=== PATIENT | female | born 1930 | race Caucasian/White ===

== ENCOUNTER 2016-02-19 10:09 | Inpatient (IN) | payer OTHER, MEDICARE ==
[~2016-02-19] VITALS: Ht 160 cm; Wt 79.4 kg
[~2016-02-19 10:09] MED LIST: ACEPHEN650 MG PR; ACETADOTE200 MG/1 M NEB; ACIDOPHILUS W/P1 CAP PO; ACIDOPHILUS1 EACH PO; ADVAIR 250-501 EACH INH; ALBUTEROL2.5 MG/3 M INH; ALPRAZOLAM0.25 M1 PO; ALPRAZOLAM0.25 MG PO; APAP325 MG PO; BENEFIBER144 GM PO; BENZONATATE100 MG PO; CALCIUM + VITA1 EAC1 PO; CHOLESTYRAMINE1 POW PO; CIPRO 500MG TA500 MG PO; CLARITIN10 MG PO; CLOPIDOGREL75 MG PO; CORTEF10 M1 PO; CORTEF20 M1 PO; CORTEF5 MG PO; COUMADIN 3 MG TA3 MG PO; COUMADIN 4MG TAB4 MG PO; COUMADIN2 M1 PO; COUMADIN4 M1 PO; CYMBALTA60 M1 PO; DIFICID200 MG PO; DIOVAN160 MG PO; DULCOLAX10 MG PR; FAMOTIDINE20 M1 PO; FAMOTIDINE20 MG PO; FIRST-VANCOM25 MG/ML PO; FLAGYL 25O MG250 M1 PO; FLEET ENEMA 131 UNIT RC; FLORASTOR250 MG PO; FOLIC ACID 1 MG PO; FUROSEMIDE40 M1 PO; FUROSEMIDE40 MG PO; GOOD NEIGHBOR100 M5 PO; GUAIFENESIN AC473 M1 PO; GUAIFENESIN ER600 MG PO; HYDROCORTISONE PO; HYDROCORTISONE20 MG PO; KLOR-CON M2020 MEQ PO; LASIX20 M1 PO; MASON NATURAL325 MG PO; METAMUCIL1 PAC PO; MILK OF MAGNESI30 ML PO; MIRALAX17 GM PO; MULTIPLE VITAM1 EAC2 PO; NEURONTIN300 M1 PO; NORVASC 5MG TAB5 MG PO; OXYCODONE AND A1 TA2 PO; OXYCODONE5 MG PO; OXYCONTIN10 M1 PO; OXYCONTIN10 MG PO; PREDNISONE20 M1 PO; SPIRIVA18 MCG INH; THE MEDICINE SH1 POW PO; THIAMINE HCL100 M1 PO; TYLENOL500 MG PO; ULTRAM(MONOGRAP50 MG PO; VANCOCIN HCL P125 MG PO; VANCOCIN HCL125 MG PO; VANCOMYCIN HCL5 G1 PO; VOLTAREN GEL1% TOP; VOLTAREN100 GM TOP; XIFAXAN200 MG PO
--- NOTE | 2016-02-19 10:19 | ED UPPER/LOWER EXTREMITY COMPL ---
History of Present Illness General Chief Complaint: Shoulder Injury Stated Complaint: BIBA, RIGHT SHOULDER PAIN. Source: patient, old records, EMS Exam Limitations: no limitations Vital Signs & Intake/Output Vital Signs & Intake/Output Vital Signs Date Time Temp Pulse Resp B/P Pulse O2 O2 Flow FiO2 Ox Delivery Rate 02/18 1401 98.2 82 19 172/80 95 Room Air 02/18 1134 97.4 80 19 176/69 96 Room Air 02/18 1015 97.5 85 20 184/86 97 Room Air Allergies Coded Allergies: codeine (Severe, UNKNOWN PER PT 02/19/16) Reconcile Medications Alprazolam 0.25 MG TABLET 1 TAB PO BID PRN ANXIETY (Reported) Calcium/Vitamin D (Calcium + D) 600 MG/200 IU TAB 1 TAB PO BID SUPPLEMENT ( Reported) DEXTRIN (Fiber) 3 GRAM/3.5 GRAM POWDER 1 TBSP PO DAILY CONSTIPATION (Reported ) Diclofenac Sodium (Voltaren) 1 % GEL..GRAM. 1 GM TOP 4 TIMES/DAY HAND PAIN ( Reported) apply to affected areas Duloxetine Hydrochloride (Cymbalta) 30 MG CAPSULE.DR 60 MG PO DAILY PAIN AND DEPRESSION (Reported) Famotidine 20 MG TABLET 1 TAB PO DAILY GASTRITIS (Reported) FLUTICASONE/SALMETEROL (Advair 250-50 Diskus) 250 MCG-50 MCG/DOSE BLST.W.DEV 1 PUF PO BID COPD (Reported) Folic Acid 1 MG TABLET 1 MG PO DAILY FOLIC ACID SUPPLEMENT (Reported) Furosemide (Lasix) 20 MG TABLET 1 TAB PO DAILY heart (Reported) Gabapentin (Neurontin) 300 MG CAP 1 CAP PO BID NEURALGIA (Reported) Guaifenesin (Guaifenesin ER) 600 MG TAB.ER.12H 600 MG PO Q12 PRN COUGH Hydrocortisone (Cortef) 20 MG TABLET 1 TAB PO DAILY ADRENAL INSUFFICIENCY ( Reported) Hydrocortisone (Cortef) 10 MG TAB 1 TAB PO AT BEDTIME ADRENAL INSUFFICIENCY ( Reported) Lactobacillus Acidophilus (Acidophilus) 1 CAP CAP 1 CAP PO DAILY SUPPLEMENT ( Reported) Multivitamin (Multiple Vitamins) 1 EACH TABLET 1 TAB PO DAILY SUPPLEMENT ( Reported) Oxycodone HCl (Oxycontin) 10 MG TAB.ER.12H 10 MG PO BID PAIN (Reported) Thiamine HCl 100 MG TABLET 1 TAB PO DAILY SUPPLEMENT (Reported) Valsartan (Diovan) 160 MG TABLET 1 TAB PO DAILY BP (Reported) Vancomycin HCl (Vancocin HCl) 125 MG CAPSULE 125 MG PO DAILY C DIFFICLE ( Reported) Warfarin Sodium (Coumadin) 2 MG TABLET 2 TAB PO 1700 BLOOD THINNER Triage Nurses Notes Reviewed? yes Onset: Abrupt Duration: THIS MORNING Timing: multiple episodes today Severity: severe Pain/Injury Location: Right: Shoulder. Method of Injury: NONE - OLD ROTATOR CUFF INJURY Modifying Factors: Worsens With: movement. Associated Symptoms: stiffness HPI: This is an 85-year-old female with history of chronic right rotator cuff pain who presents by EMS from home for chief complaint of severe pain since yesterday morning. She states the pain is worse than usual. No recent trauma or injury. She has been taking her OxyContin without any relief. Pain radiates up her neck and down herself arm. Denies any chest pain or shortness of breath and out of the usual. She has a history of COPD no his old short of breath. Patient does not use any home oxygen therapy. Denies any palpitations. Past History Travel History Traveled to [place] past 21 day No Medical History Any Pertinent Medical History? see below for history Neurological: CVA Cardiovascular: CHF, hypertension, hyperlipidemia, Endocarditis Respiratory: COPD (on 2 L oxygen at home) Gastrointestinal: diverticulitis, RECURRENT c. 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 Hx Contributory? No Review of Systems Review of Systems Constitutional: Denies: chills, fever. EENTM: Reports: no symptoms. Respiratory: Denies: cough, short of breath. Cardiovascular: Denies: chest pain, palpitations. Gastrointestinal/Abdominal: Denies: abdominal pain. Genitourinary: Reports: no symptoms. Musculoskeletal: Reports: joint pain, muscle pain. Skin: Reports: no symptoms. Neurological/Psychological: Reports: anxiety, weakness (RIGHT ARM). Hematologic/Endocrine: Denies: bruising, bleeding, polyuria, polydipsia. Immunological: Denies: splenectomy. All Other Systems: Reviewed and Negative Physical Exam Physical Exam General Appearance: well developed/nourished, mild distress Head: atraumatic Eyes: Bilateral: PERRL, EOMI. Ears, Nose, Throat: normal pharynx, normal ENT inspection, hearing grossly normal Neck: normal inspection, supple Cardiovascular/Respiratory: regular rate/rhythm Peripheral Pulses: 2+ radial (R), 2+ radial (L) Gastrointestinal: SOFT NONTENDER Back: normal inspection Shoulder Left: normal range of motion, normal inspection Shoulder Right: pain, limited range of motion Elbow Left: normal range of motion, normal inspection Elbow Right: normal range of motion, normal inspection Hand Left: normal inspection, normal range of motion Hand Right: normal inspection, normal range of motion Neurologic/Tendon: normal sensation, normal motor functions, normal tendon functions, PAIN WITH RANGE OF MOTION Skin: intact, normal color, warm/dry Lymphatic: no anterior cervical cecy Progress Differential Diagnosis: fracture, sprain, ROTATOR CUFF INJURY, AMI, ACS Plan of Care: Orders Procedure Date/time Status Heart Healthy Diet 02/18 D Active Admit to inpatient 02/18 1536 Active Vital Signs 02/18 1536 Active Code Status 02/18 1536 Active URINALYSIS 02/18 1018 Active TROPONIN LEVEL 02/18 1018 Complete PARTIAL THROMBOPLASTIN TIME 02/18 1018 Complete PROTHROMBIN TIME 02/18 1018 Complete COMPREHENSIVE METABOLIC PANEL 02/18 1018 Complete CBC WITHOUT DIFFERENTIAL 02/18 1018 Complete EKG 02/18 1018 Active Laboratory Tests 02/19/16 1041: Anion Gap 9, Estimated GFR > 60, BUN/Creatinine Ratio 24.3, Glucose 83, Calcium 8.8, Total Bilirubin 0.8, AST 29, ALT 31, Alkaline Phosphatase 58, Troponin I < 0.01, Total Protein 6.4, Albumin 3.6, Globulin 2.8, Albumin/Globulin Ratio 1.3, PT 26.6 H, INR 2.56 H, APTT 40 H, CBC w Diff NO MAN DIFF REQ, RBC 4.52, MCV 85.2, MCH 27.7, RDW 15.8 H, MPV 7.3 L, Gran % 72.5, Lymphocytes % 14.1 L, Monocytes % 11.3 H, Eosinophils % 2.0, Basophils % 0.1, Absolute Granulocytes 7.7 H, Absolute Lymphocytes 1.5, Absolute Monocytes 1.2 H, Absolute Eosinophils 0.2, Absolute Basophils 0, PUBS MCHC 32.5 L TORADOL, NS ORDERED. LABS, EKG ORDERED. NO RELIEF WITH TORADOL. MORPHINE, VALIUM ORDERED. RIGHT SHOULDER XRAY ORDERED. MINIMAL RELIEF WITH PAIN MEDS. PATIENT UNABLE TO MOVE HER RIGHT ARM, WILL BE UNABLE TO BE AT HOME WHERE SHE NEEDS TO USE HER WALKER FOR MOVEMENT. 2:[address] COSME VIVEROS. ([facility]) Diagnostic Imaging: Viewed by Me: Radiology Read. Discussed w/RAD: Radiology Read. Radiology Impression: EXAM TYPE: RAD - XRY-SHOULDER COMPLETE-RIGHT EXAMINATION: XR SHOULDER, RIGHT CLINICAL INFORMATION: Severe right shoulder pain. COMPARISON: 06/06/2013 TECHNIQUE: Right shoulder, 3 views FINDINGS: Bones appear diffusely osteopenic. 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 The humeral head abuts the undersurface of the acromion. There is no evidence of acromial fracture or other acute interval change compared to 06/06/2013. IMPRESSION: 1. Gvqkwnim-ks-rfaiuq osteoarthritis of the glenohumeral joint. 2. Chronic rotator cuff tear as manifest by loss of acromiohumeral distance. 3. No acute findings at the right shoulder compared to 06/06/2013. Initial ED EKG: NSR Departure Departure Time of Disposition: 1426 Disposition: STILL A PATIENT Condition: Stable Clinical Impression Primary Impression: Right rotator cuff tendinitis Secondary Impressions: Intractable pain Referrals: VAIBHAV AGUIAR MD (PCP/Family) Referred to [facility] as new patient No Departure Forms: Customer Survey General Discharge Information Admission Note Spoke With: JENNYFER OROZCO MD Documentation of Exam: Documentation of any treatments & extenuating circumstances including Concerns Regarding Discharge (functional status, medication knowledge or non-compliance, living conditions, etc.) that warrant an admission rather than observation: [ PAIN CONTROL, SEVERE INTRACTABLE PAIN AFTER PAIN MEDS, UNABLE TO MOVE RIGHT ARM, UNABLE TO WALK. USES ROLLING WALKER AT HOME, LIVES INDEPENDENTLY. WILL NEED PT /OT, PAIN MANAGEMENT, ORTHO IN PAST HAS ADVISED NO TREATMENT PLAN, CONSIDER SHORT TERM REHAB]
[2016-02-19 10:52] LABS: ABSOLUTE BASOPHIL COUNT 0 /CUMM (0.0-0.2); ABSOLUTE EOSINOPHIL COUNT 0.2 /CUMM (0.0-0.7); ABSOLUTE GRANULOCYTE CT 7.7 /CUMM (1.4-6.5); ABSOLUTE LYMPH COUNT 1.5 /CUMM (1.2-3.4); ABSOLUTE MONOCYTE COUNT 1.2 /CUMM (0.10-0.60); BASOPHIL % 0.1 % (0.0-2.0); GRANULOCYTE % 72.5 % (42.2-75.2); HEMATOCRIT 38.5 % (37-47); MEAN CORPUSCULAR HGB 27.7 PG (27.0-31.0); MEAN CORPUSCULAR HGB CONC 32.5 G/DL (33.0-37.0); MEAN CORPUSCULAR VOLUME 85.2 FL (81.0-99.0); MEAN PLATELET VOLUME 7.3 FL (7.4-10.4); PLATELET COUNT 288 /CUMM (130-400); RBC DISTRIBUTION WIDTH 15.8 % (11.5-14.5); RED BLOOD CELL CT 4.52 /CUMM (4.20-5.40); WHITE BLOOD CELL COUNT 10.6 /CUMM (4.8-10.8)
[2016-02-19 11:16] LABS: PT 26.6 SEC (9.4-12.5); PTT 40 SEC (25-37)
--- NOTE | 2016-02-19 14:12 | RADIOLOGY REPORT ---
EXAMINATION: XR SHOULDER, RIGHT CLINICAL INFORMATION: Severe right shoulder pain. COMPARISON: 06/06/2013 TECHNIQUE: Right shoulder, 3 views FINDINGS: Bones appear diffusely osteopenic. 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 The humeral head abuts the undersurface of the acromion. There is no evidence of acromial fracture or other acute interval change compared to 06/06/2013. IMPRESSION: 1. Rgyxqzzj-so-sojzqu osteoarthritis of the glenohumeral joint. 2. Chronic rotator cuff tear as manifest by loss of acromiohumeral distance. 3. No acute findings at the right shoulder compared to 06/06/2013.
--- NOTE | 2016-02-19 16:12 | History & Physical ---
See Addendum General Information and HPI MD Statement: I have seen and personally examined ELIEZER GARCIA and documented this H&P. The patient is a 85 year old F who presented with a patient stated chief complaint of right-sided shoulder pain for one day. []. Source of Information: patient, family Exam Limitations: no limitations History of Present Illness: Patient is 85-year-old woman from assisted living with past medical history significant for non-oxygen dependent COPD, hypertension, congestive heart failure, chronic back pain, history of PE in the past on anticoagulation, history of chronic rotator cuff tear, history of C. difficile and fecal implantation on the ED vancomycin came to the emergency room with chief complaint of right sided severe shoulder pain and in ABLE move right shoulder since yesterday. Patient admit that she has right sided shoulder pain chronically but recently it was worsening even on pain medications and since yesterday when she woke up she had severe sharp right-sided shoulder pain with restricted right-sided shoulder movement. She denies fever, chills, chest pain, abdominal pain, any urinary or bowel complaints. She had chronic bilateral lower extremity edema. Allergies/Medications Allergies: Coded Allergies: codeine (Severe, UNKNOWN PER PT 02/19/16) Home Med list Alprazolam 0.25 MG TABLET 1 TAB PO BID PRN ANXIETY (Reported) Calcium/Vitamin D (Calcium + D) 600 MG/200 IU TAB 1 TAB PO BID SUPPLEMENT ( Reported) DEXTRIN (Fiber) 3 GRAM/3.5 GRAM POWDER 1 TBSP PO DAILY CONSTIPATION (Reported ) Diclofenac Sodium (Voltaren) 1 % GEL..GRAM. 1 GM TOP 4 TIMES/DAY HAND PAIN ( Reported) apply to affected areas Duloxetine Hydrochloride (Cymbalta) 30 MG CAPSULE.DR 60 MG PO DAILY PAIN AND DEPRESSION (Reported) Famotidine 20 MG TABLET 1 TAB PO DAILY GASTRITIS (Reported) FLUTICASONE/SALMETEROL (Advair 250-50 Diskus) 250 MCG-50 MCG/DOSE BLST.W.DEV 1 PUF PO BID COPD (Reported) Folic Acid 1 MG TABLET 1 MG PO DAILY FOLIC ACID SUPPLEMENT (Reported) Furosemide (Lasix) 20 MG TABLET 1 TAB PO DAILY heart (Reported) Gabapentin (Neurontin) 300 MG CAP 1 CAP PO BID NEURALGIA (Reported) Guaifenesin (Guaifenesin ER) 600 MG TAB.ER.12H 600 MG PO Q12 PRN COUGH Hydrocortisone (Cortef) 20 MG TABLET 1 TAB PO DAILY ADRENAL INSUFFICIENCY ( Reported) Hydrocortisone (Cortef) 10 MG TAB 1 TAB PO AT BEDTIME ADRENAL INSUFFICIENCY ( Reported) Lactobacillus Acidophilus (Acidophilus) 1 CAP CAP 1 CAP PO DAILY SUPPLEMENT ( Reported) Loratadine (Claritin) 10 MG TAB 1 TAB PO DAILY PRN ALLERGIES (Reported) Multivitamin (Multiple Vitamins) 1 EACH TABLET 1 TAB PO DAILY SUPPLEMENT ( Reported) Oxycodone HCl (Oxycontin) 10 MG TAB.ER.12H 10 MG PO BID PAIN (Reported) Thiamine HCl 100 MG TABLET 1 TAB PO DAILY SUPPLEMENT (Reported) Valsartan (Diovan) 160 MG TABLET 1 TAB PO DAILY BP (Reported) Vancomycin HCl (Vancocin HCl) 125 MG CAPSULE 125 MG PO DAILY C DIFFICLE ( Reported) Warfarin Sodium (Coumadin) 2 MG TABLET 2 TAB PO 1700 BLOOD THINNER Compliance With Home Meds: GOOD Past History Travel History Traveled to [place] past 21 day No Medical History Neurological: CVA Cardiovascular: CHF, hypertension, hyperlipidemia, Endocarditis Respiratory: COPD (on 2 L oxygen at home) Gastrointestinal: diverticulitis, RECURRENT c. 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 Psychosocial History Services at Home: Nursing Functional Ability ADLs Independent: dressing, eating, toileting, bathing. Ambulation: walker Review of Systems Review of Systems Constitutional: Reports: malaise. Denies: chills, diaphoresis, fever. Cardiovascular: Reports: edema. Denies: chest pain. Respiratory: Denies: cough, hemoptysis. GI: Denies: bloating, constipation, diarrhea. Musculoskeletal: Reports: joint pain. Exam & Diagnostic Data Last 24 Hrs of Vital Signs/I&O Vital Signs Date Time Temp Pulse Resp B/P Pulse O2 O2 Flow FiO2 Ox Delivery Rate 02/18 1800 90 18 156/82 02/18 1401 98.2 82 19 172/80 95 Room Air 02/18 1134 97.4 80 19 176/69 96 Room Air 02/18 1015 97.5 85 20 184/86 97 Room Air Intake & Output 02/18 1600 02/18 0800 02/18 0000 Intake Total Output Total Balance Patient 175 lb Weight Physical Exam General Appearance Alert, Oriented X3, Cooperative, No Acute Distress Cardiovascular Normal S1, Normal S2, systolic murmur Lungs Normal Air Movement Abdomen No Tenderness Extremities bilateral lower extremity edema Last 24 Hrs of Labs/Javier: Laboratory Tests 02/19/16 1041: Anion Gap 9, Estimated GFR > 60, BUN/Creatinine Ratio 24.3, Glucose 83, Calcium 8.8, Total Bilirubin 0.8, AST 29, ALT 31, Alkaline Phosphatase 58, Troponin I < 0.01, Total Protein 6.4, Albumin 3.6, Globulin 2.8, Albumin/Globulin Ratio 1.3, PT 26.6 H, INR 2.56 H, APTT 40 H, CBC w Diff NO MAN DIFF REQ, RBC 4.52, MCV 85.2, MCH 27.7, RDW 15.8 H, MPV 7.3 L, Gran % 72.5, Lymphocytes % 14.1 L, Monocytes % 11.3 H, Eosinophils % 2.0, Basophils % 0.1, Absolute Granulocytes 7.7 H, Absolute Lymphocytes 1.5, Absolute Monocytes 1.2 H, Absolute Eosinophils 0.2, Absolute Basophils 0, PUBS MCHC 32.5 L Assessment/Plan Assessment: 85-year-old woman with history of chronic back pain and chronic right rotator cuff tear, hypertension, hyperlipidemia, history of PE in the past on Coumadin, history of C. difficile on daily vancomycin oral came with chief complaint of worsening severe right-sided shoulder pain most likely underlying chronic issues. We will admit patient to general medical floor treated for the following problems Problem #1 severe right-sided shoulder pain with chronic rotator cuff tear we'll need physical therapy Vital signs every shift PT and OT evaluation Might be MRI of shoulder Orthopedic consultation if needed Problem #2 history of hypertension, CHF We will continue her home medications Problem #3 history of C. difficile colitis on daily vancomycin We will continue her medications Problem #4 History of abdominal insufficiency on hydrocortisone Will continue her home medications Patient is full code Pharmacological DVT prophylaxis As Ranked By This Provider Problem List: 1. HISTORY - C-DIFF COLITIS 2. Right rotator cuff tendinitis 3. Intractable pain Core Measures/Miscellaneous Acute Coronary Syndrome ACS Diagnosis: No Cerebrovascular Accident CVA/TIA Diagnosis: No Congestive Heart Failure CHF Diagnosis: No Venous Thromboembolism VTE Risk Factors: Age > 40 VTE Prophylaxis Ordered Inpt: Pharm- Warfarin No Mech VTE prophylaxis d/t: No contraindications No VTE Pharm Prophylaxis d/t: No contraindications VTE Diagnosis: No VTE Type: NONE VTE Confirmed by (Test): NONE Severe Sepsis Severe Sepsis Present: No Septic Shock Septic Shock Present: No Miscellaneous Documentation Attending Case Discussed With: JENNYFER OROZCO MD Primary Care Physician: VAIBHAV AGUIAR MD Patient sees these Specialists [employer] Level of Patient Care: General Medicine
--- NOTE | 2016-02-19 17:55 | Admission Certification ---
Admission Certification Certification Statement - As attending physician, I certify that at the time of - admission, based on clinical presentation, severity of - symptoms, need for further diagnostic testing and - therapeutic interventions, and risk of adverse outcomes - without in-hospital treatment, in my clinical assessment, - this patient requires an acute hospital stay for a minimum - of two nights or longer. I have also considered psychsocial - factors such as support system, advanced age, financial - issues, cognitive issues, and failed out-patient treatments, - past re-admission history, safety of patient, and lack of - compliance as applicable. Specific rationale supporting this admission is: 85-year-old female with intractable right shoulder pain relieved only by parenteral analgesia admitted prior to transfer to short-term rehabilitation.
[2016-02-20 07:25] VITALS: BP 146/80
[2016-02-20 08:03] LABS: ABSOLUTE BASOPHIL COUNT 0 /CUMM (0.0-0.2); ABSOLUTE EOSINOPHIL COUNT 0 /CUMM (0.0-0.7); ABSOLUTE GRANULOCYTE CT 7.4 /CUMM (1.4-6.5); ABSOLUTE LYMPH COUNT 1.2 /CUMM (1.2-3.4); ABSOLUTE MONOCYTE COUNT 1.5 /CUMM (0.10-0.60); BASOPHIL % 0.1 % (0.0-2.0); EOSINOPHIL % 0.4 % (0-5); GRANULOCYTE % 72.7 % (42.2-75.2); HEMATOCRIT 37.2 % (37-47); MEAN CORPUSCULAR HGB 27.8 PG (27.0-31.0); MEAN CORPUSCULAR HGB CONC 32.7 G/DL (33.0-37.0); MEAN PLATELET VOLUME 7.6 FL (7.4-10.4); PLATELET COUNT 247 /CUMM (130-400); RBC DISTRIBUTION WIDTH 15.7 % (11.5-14.5); RED BLOOD CELL CT 4.37 /CUMM (4.20-5.40); WHITE BLOOD CELL COUNT 10.2 /CUMM (4.8-10.8)
[2016-02-20 08:16] LABS: PT 34.4 SEC (9.4-12.5)
--- NOTE | 2016-02-20 08:34 | PN- Housestaff ---
YESENIA GOODWIN 02/20/16 0834: Subjective Follow-up For: Shoulder pain Chronic rotator cuff tear Complaints: shoulder pain Subjective: Patient was seen and examined this morning. She was lying comfortably in bed and admits that her pain is better than before. She still have restricted right shoulder movement. She remains afebrile with normal vital signs. She will work with physical therapy and most likely will go to short-term rehabilitation. Review of Systems Constitutional: Denies: chills, diaphoresis. Cardiovascular: Reports: edema. Denies: chest pain. Respiratory: Denies: cough, hemoptysis. Gastrointestinal: Denies: bloating, constipation. Musculoskeletal: Reports: joint pain. Objective Last 24 Hrs of Vital Signs/I&O Vital Signs Date Time Temp Pulse Resp B/P Pulse O2 O2 Flow FiO2 Ox Delivery Rate 02/19 0725 97.9 83 18 146/80 93 Nasal Cannula 02/19 2124 Nasal 2.0L Cannula 02/19 1936 97.1 79 18 105/59 91 Nasal 4.0L Cannula 02/18 192 97.8 93 18 142/83 95 Nasal 2.0L Cannula 02/18 1800 90 18 156/82 02/18 1401 98.2 82 19 172/80 95 Room Air 02/18 1134 97.4 80 19 176/69 96 Room Air 02/18 1015 97.5 85 20 184/86 97 Room Air Intake & Output 02/19 1600 02/19 0800 02/19 0000 Intake Total 100 100 Output Total Balance 100 100 Intake, Oral 100 100 Patient 175 lb Weight Physical Exam General Appearance: Alert, Oriented X3, Cooperative Cardiovascular: Normal S1, Normal S2, systolic murmur Lungs: Normal Air Movement Abdomen: Soft, No Tenderness Extremities: bilateral lower extremity edema Current Medications: Current Medications Sig/Gricelda Start time Last Medication Dose Route Stop Time Status Admin Acetaminophen 650 MG Q6P PRN 02/18 1615 AC PO Alprazolam 0.25 MG BID PRN 02/18 1630 AC PO 02/25 1629 Budesonide/ 2 PUF BID 02/18 2200 AC 02/18 Formoterol Fumarate INH 2155 Diazepam 0 .STK-MED ONE 02/18 1043 DC .ROUTE Diazepam 4 MG ONCE ONE 02/18 1030 DC 02/18 IV 02/18 1031 1049 Duloxetine HCl 60 MG DAILY 02/18 1618 AC 02/18 PO 1800 Famotidine 20 MG DAILY 02/18 1618 AC 02/18 PO 1800 Folic Acid 1 MG DAILY 02/18 1619 AC 02/18 PO 1800 Furosemide 20 MG DAILY 02/18 1619 AC 02/18 PO 1800 Gabapentin 300 MG BID 02/18 2200 AC 02/18 PO 2156 Hydrocortisone 10 MG QPM 02/18 2200 AC 02/18 PO 2156 Hydrocortisone 20 MG DAILY 02/18 1630 AC 02/18 PO 1800 Hydromorphone HCl 0 .STK-MED ONE 02/18 1637 DC .ROUTE Hydromorphone HCl 1 MG Q6P PRN 02/18 1615 AC 02/18 IV 1700 Hydromorphone HCl 0 .STK-MED ONE 02/18 1447 DC .ROUTE Hydromorphone HCl 1 MG ONCE ONE 02/18 1430 DC 02/18 IV 02/18 1431 1454 Ketorolac 15 MG Q6P PRN 02/18 1615 AC 02/18 Tromethamine IV 2157 Ketorolac 0 .STK-MED ONE 02/18 1036 DC Tromethamine .ROUTE Ketorolac 15 MG ONCE ONE 02/18 1030 DC 02/18 Tromethamine IV 02/18 1031 1048 Lactobacillus 1 CAP DAILY 02/18 1623 AC 02/18 Acidophilus PO 1800 Lidocaine 1 PAT Q24H 02/18 1615 AC 02/18 EXT 1700 Losartan Potassium 50 MG DAILY 02/18 1630 AC 02/18 PO 1800 Morphine Sulfate 0 .STK-MED ONE 02/18 1217 DC .ROUTE Morphine Sulfate 4 MG ONCE ONE 02/18 1215 DC 02/18 IV 02/18 1216 1222 Patient Medication 1 UNIT ONE NR 02/18 1715 RI Teaching ED 02/18 1730 Patient Medication 1 UNIT ONE NR 02/18 1715 RI Teaching ED 02/18 1730 Patient Medication 1 UNIT ONE NR 02/18 1715 RI Teaching ED 02/18 1730 Polyethylene Glycol 17 GM DAILY 02/18 1617 AC 02/18 PO 1803 Sodium Chloride 500 ML BOLUS ONE 02/18 1030 DC 02/18 IV 02/18 1129 1048 Vancomycin HCl 125 MG DAILY 02/18 1630 AC 02/18 PO 1800 Warfarin Sodium 4 MG 1700 02/18 1700 DC 02/18 PO 02/18 1701 1800 Last 24 Hrs of Lab/Javier Results Last 24 Hrs of Labs/Mics: Laboratory Tests 02/20/16 0600: Anion Gap 10, Estimated GFR > 60, BUN/Creatinine Ratio 25.7 H, PT 34.4 H, INR 3.32 H, CBC w Diff NO MAN DIFF REQ, RBC 4.37, MCV 85.0, MCH 27.8, RDW 15.7 H, MPV 7.6, Gran % 72.7, Lymphocytes % 11.8 L, Monocytes % 15.0 H, Eosinophils % 0.4, Basophils % 0.1, Absolute Granulocytes 7.4 H, Absolute Lymphocytes 1.2, Absolute Monocytes 1.5 H, Absolute Eosinophils 0, Absolute Basophils 0, PUBS MCHC 32.7 L 02/19/16 1041: Anion Gap 9, Estimated GFR > 60, BUN/Creatinine Ratio 24.3, Glucose 83, Calcium 8.8, Total Bilirubin 0.8, AST 29, ALT 31, Alkaline Phosphatase 58, Troponin I < 0.01, Total Protein 6.4, Albumin 3.6, Globulin 2.8, Albumin/Globulin Ratio 1.3, PT 26.6 H, INR 2.56 H, APTT 40 H, CBC w Diff NO MAN DIFF REQ, RBC 4.52, MCV 85.2, MCH 27.7, RDW 15.8 H, MPV 7.3 L, Gran % 72.5, Lymphocytes % 14.1 L, Monocytes % 11.3 H, Eosinophils % 2.0, Basophils % 0.1, Absolute Granulocytes 7.7 H, Absolute Lymphocytes 1.5, Absolute Monocytes 1.2 H, Absolute Eosinophils 0.2, Absolute Basophils 0, PUBS MCHC 32.5 L Assessment/Plan Assessment: 85-year-old woman with history of chronic back pain and chronic right rotator cuff tear, hypertension, hyperlipidemia, history of PE in the past on Coumadin, history of C. difficile on daily vancomycin oral came with chief complaint of worsening severe right-sided shoulder pain most likely underlying chronic issues. We will admit patient to general medical floor treated for the following problems Problem #1 severe right-sided shoulder pain with chronic rotator cuff tear we'll need physical therapy Vital signs every shift PT and OT evaluation Might be MRI of shoulder Orthopedic consultation if needed Problem #2 history of hypertension, CHF We will continue her home medications Problem #3 history of C. difficile colitis on daily vancomycin We will continue her medications Problem #4 History of abdominal insufficiency on hydrocortisone Will continue her home medications Patient is full code Pharmacological DVT prophylaxis Problem List: 1. Garfield's disease 2. Right rotator cuff tendinitis 3. Intractable pain Pain Ratin Pain Location: Right shoulder Pain Goal: Pain 4 or less Pain Plan: Dilaudid Tomorrow's Labs & Rationales: None JENNYFER OROZCO MD 02/20/16 1805: Attending MD Review Statement Attending Statement Attending MD Statement: examined this patient, agreed w/resident/PA/[facility] [employer], reviewed EMR data (avail), amended to note Attending Assessment/Plan: Ms. Barlow notes some improvement in her shoulder pain with present analgesic regimen. She does note normalized "achiness" but otherwise has no complaints. We should continue her parenteral analgesia and her maintenance medications pending placement in short-term rehabilitation.
[2016-02-20 14:46] VITALS: BP 150/90
[2016-02-20 22:45] VITALS: BP 128/60
[2016-02-21 06:37] VITALS: BP 120/64
--- NOTE | 2016-02-21 08:20 | PN- Housestaff ---
Subjective Follow-up For: right shoulder pain Subjective: pt seen this morning,was lying comfortably in bed. right extremity pain improving, right shoulder pain still persists although improved. warfarin was held yesteday due to supratherapeutic INR of 3.32, INR from today still pending. She is on 2L o2 and wants to be weaned off O2. Will follow up Pt/OT and wean off o2. she also reports not being able to urinate in [address] Quiroga was at bedside and recommended her to drink more fluids. Will straight cath her if necessary, although she would prefer not to. had normal bm this am. Review of Systems Constitutional: Denies: chills, fever. EENTM: Denies: visual changes. Cardiovascular: Denies: chest pain, palpitations. Respiratory: Denies: cough, short of breath. Gastrointestinal: Denies: abdominal pain, bloating, constipation, diarrhea. Objective Last 24 Hrs of Vital Signs/I&O Vital Signs Date Time Temp Pulse Resp B/P Pulse O2 O2 Flow FiO2 Ox Delivery Rate 02/20 1048 83 120/64 02/20 0637 98.6 83 20 120/64 98 Nasal Cannula 02/20 0000 98 Nasal 2.0L Cannula 02/19 2245 97.6 90 20 128/60 98 Nasal Cannula 02/19 1900 Nasal 2.0L Cannula 02/19 1446 98.9 92 22 150/90 93 Intake & Output 02/20 1600 02/20 0800 02/20 0000 Intake Total 150 480 Output Total 300 450 Balance 150 -300 30 Intake, Oral 150 480 Number 1 Bowel Movements Output, Urine 300 450 Physical Exam General Appearance: Alert, Oriented X3, Cooperative, No Acute Distress Skin: No Significant Lesion HEENT: Atraumatic, PERRLA Cardiovascular: Regular Rate, Normal S1, Normal S2, No Murmurs, Gallops, Rubs Lungs: Clear to Auscultation, Normal Air Movement Abdomen: Normal Bowel Sounds, Soft, No Tenderness Neurological: Normal Speech Extremities: limited ROM of right shoulder Current Medications: Current Medications Sig/Gricelda Start time Last Medication Dose Route Stop Time Status Admin Acetaminophen 650 MG Q6P PRN 02/18 1615 AC PO Alprazolam 0.25 MG BID PRN 02/18 1630 AC PO 02/25 1629 Budesonide/ 2 PUF BID 02/18 2200 AC 02/20 Formoterol Fumarate INH 1053 Duloxetine HCl 60 MG DAILY 02/18 1618 AC 02/20 PO 1050 Famotidine 20 MG DAILY 02/18 1618 AC 02/20 PO 1052 Folic Acid 1 MG DAILY 02/18 1619 AC 02/20 PO 1048 Furosemide 20 MG DAILY 02/18 1619 AC 02/20 PO 1048 Gabapentin 300 MG BID 02/18 2200 AC 02/20 PO 1049 Hydrocortisone 10 MG QPM 02/18 2200 AC 02/19 PO 2236 Hydrocortisone 20 MG DAILY 02/18 1630 AC 02/20 PO 1051 Hydromorphone HCl 1 MG Q6P PRN 02/18 1615 AC 02/20 IV 1116 Ketorolac 15 MG Q6P PRN 02/18 161 AC 02/19 Tromethamine IV 1720 Lactobacillus 1 CAP DAILY 02/18 1623 AC 02/20 Acidophilus PO 1052 Lidocaine 1 PAT Q24H 02/18 1615 AC 02/19 EXT 1720 Losartan Potassium 50 MG DAILY 02/18 1630 AC 02/20 PO 1048 Nystatin 1 ROBERTO TID 02/19 2200 AC 02/20 TOP 1053 Polyethylene Glycol 17 GM DAILY 02/18 1617 AC 02/20 PO 1052 Vancomycin HCl 125 MG DAILY 02/18 1630 AC 02/20 PO 1108 Assessment/Plan Assessment: 85-year-old woman with history of chronic back pain and chronic right rotator cuff tear, hypertension, hyperlipidemia, history of PE in the past on Coumadin, history of C. difficile on daily vancomycin oral came with chief complaint of worsening severe right-sided shoulder pain most likely underlying chronic issues. We will admit patient to general medical floor treated for the following problems Problem #1 severe right-sided shoulder pain with chronic rotator cuff tear we'll need physical therapy Vital signs every shift PT and OT evaluation Might be MRI of shoulder Orthopedic consultation if needed Problem #2 history of hypertension, CHF We will continue her home medications Problem #3 history of C. difficile colitis on daily vancomycin We will continue her medications Problem #4 History of abdominal insufficiency on hydrocortisone Will continue her home medications Problem # 5 Supratherapeutic INR on warfarin Pending INR today, will dose warfarin accordingly Patient is full code Pharmacological DVT prophylaxis Problem List: 1. Intractable pain 2. Right rotator cuff tendinitis Pain Ratin Pain Location: left shoulder Pain Goal: Pain 4 or less Pain Plan: mod pp Tomorrow's Labs & Rationales: inr for warfarin dose DVT/Prophylaxis: mechanical, pharmacological
[2016-02-21 13:39] LABS: PT 30.8 SEC (9.4-12.5)
[2016-02-21 15:28] VITALS: BP 120/60
--- NOTE | 2016-02-21 16:11 | PN- Att Addend ---
Attending Addendum Attending Brief Note 85-year-old white female admitted over the weekend with severe shoulder pain despite taking pain medications at home. Medications were adjusted today lighthouse the pain but makes her a little "loopy" also had been constipated until this morning had a bowel movement afraid to take laxatives cause of her history of diarrhea and C. difficile patient has not been out of bed and will get a physical therapy evaluation to decide if the patient is appropriate for short-term rehabilitation or can go back to assisted living. Current Medications Sig/Gricelda Start time Last Medication Dose Route Stop Time Status Admin Acetaminophen 650 MG Q6P PRN 02/18 161 AC PO Alprazolam 0.25 MG BID PRN 02/18 1630 AC PO 02/25 1629 Budesonide/ 2 PUF BID 02/18 2200 AC 02/20 Formoterol Fumarate INH 1053 Duloxetine HCl 60 MG DAILY 02/18 1618 AC 02/20 PO 1050 Famotidine 20 MG DAILY 02/18 1618 AC 02/20 PO 1052 Folic Acid 1 MG DAILY 02/18 1619 AC 02/20 PO 1048 Furosemide 20 MG DAILY 02/18 1619 AC 02/20 PO 1048 Gabapentin 300 MG BID 02/18 2200 AC 02/20 PO 1049 Hydrocortisone 10 MG QPM 02/18 2200 AC 02/19 PO 2236 Hydrocortisone 20 MG DAILY 02/18 1630 AC 02/20 PO 1051 Hydromorphone HCl 1 MG Q6P PRN 02/18 1615 AC 02/20 IV 1116 Ketorolac 15 MG Q6P PRN 02/18 1615 AC 02/19 Tromethamine IV 1720 Lactobacillus 1 CAP DAILY 02/18 1623 AC 02/20 Acidophilus PO 1052 Lidocaine 1 PAT Q24H 02/18 161 AC 02/19 EXT 1720 Losartan Potassium 50 MG DAILY 02/18 1630 AC 02/20 PO 1048 Nystatin 1 ROBERTO TID 02/19 2200 AC 02/20 TOP 1053 Polyethylene Glycol 17 GM DAILY 02/18 1617 AC 02/20 PO 1052 Vancomycin HCl 125 MG DAILY 02/18 1630 AC 02/20 PO 1108 Laboratory Tests 02/21/16 1000: PT 30.8 H, INR 2.97 H Vital Signs Date Time Temp Pulse Resp B/P Pulse O2 O2 Flow FiO2 Ox Delivery Rate 02/20 1528 98.3 85 20 120/60 96 02/20 1048 83 120/64 Intake & Output 02/20 1600 Intake Total 350 Output Total Balance 350 Intake, Oral 350 Number 1 Bowel Movements
[2016-02-21 22:14] VITALS: BP 120/60
[2016-02-22 07:23] VITALS: BP 160/80
--- NOTE | 2016-02-22 08:20 | Discharge Summary ---
See Addendum Visit Information Visit Dates Admission Date: 02/19/16 Discharge Date: 02/24/16 Hospital Course Course Attending Physician: ERNESTO DA SILVA,JENNYFER Rdz Primary Care Physician: COSME DA SILVA,[facility] Course: Patient is 85-year-old woman from assisted living with past medical history significant for non-oxygen dependent COPD, hypertension, congestive heart failure, chronic back pain, history of PE in the past on anticoagulation, history of chronic rotator cuff tear, history of C. difficile and fecal implantation on the ED vancomycin came to the emergency room with chief complaint of right sided severe shoulder pain and in ABLE move right shoulder since one day prior to admission. Admission vital signs were temperature 97.5, pulse 85, respiratory rate 20, blood pressure 184/86 mmHg and she was saturating 97% on room air. Patient was admitted to general medical floor and following issues were addressed Problem #1 severe right-sided shoulder pain with chronic rotator cuff tear need physical therapy While patient was admitted for splenic with occupational and physical therapy. Recommendations are to send home on home health services. She was kept on analgesics for optimal pain control Problem #2 history of hypertension and CHF We continued her home medications and we will discharge her on same Problem 3 history of C. difficile colitis on daily oral vancomycin Patient was kept on vancomycin syrup during admission and we will discharge her on oral vancomycin capsules. Problem #4 history of adrenal insufficiency on hydrocortisone Patient was kept on her home dose and we will discharge her on same Problem 5 history of DVTs on warfarin Daily INR were checked and was dosed with warfarin accordingly Patient is full code Heart healthy diet Complications: None Allergies: Coded Allergies: codeine (Severe, UNKNOWN PER PT 02/19/16) Significant Procedures: SERVICE DATE: 02/19/16-120 EXAM TYPE: RAD - XRY-SHOULDER COMPLETE-RIGHT EXAMINATION: XR SHOULDER, RIGHT CLINICAL INFORMATION: Severe right shoulder pain. COMPARISON: 06/06/2013 TECHNIQUE: Right shoulder, 3 views FINDINGS: Bones appear diffusely osteopenic. 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 The humeral head abuts the undersurface of the acromion. There is no evidence of acromial fracture or other acute interval change compared to 06/06/2013. IMPRESSION: 1. [id number] osteoarthritis of the glenohumeral joint. 2. Chronic rotator cuff tear as manifest by loss of acromiohumeral distance. 3. No acute findings at the right shoulder compared to 06/06/2013. Disposition Summary Disposition Principal Diagnosis: Chronic right rotator cuff tear Additional Diagnosis: Hypertension Hyperlipidemia History of C. difficile colitis on vancomycin Discharge Disposition: home health services Discharge Instructions General Discharge Information Code Status: Full Code Patient's Diet: Heart healthy diet Patient's Activity: As tolerated with assistance Follow-Up Instructions/Appts: Please follow-up with your primary care physician in one week of discharge Medications at Discharge Discharge Medications: Continue taking these medications: Folic Acid (Folic Acid) 1 MG TABLET 1 Milligram ORAL DAILY Days = 30 Comments: NOT GIVEN IN HOSPITAL Multivitamin (Multiple Vitamins) 1 EACH TABLET 1 Tablet ORAL DAILY Days = 30 Comments: NOT GIVEN IN HOSPITAL Calcium/Vitamin D (Calcium + D) 600 MG/200 IU TAB 1 Tablet ORAL TWICE DAILY Days = 30 Comments: NOT GIVEN IN HOSPITAL Famotidine (Famotidine) 20 MG TABLET 1 Tablet ORAL DAILY Days = 30 Comments: Last Taken: 06/01/15 Time: 1030AM FLUTICASONE/SALMETEROL (Advair 250-50 Diskus) 250 MCG-50 MCG/DOSE BLST.W.DEV 1 Puff ORAL TWICE DAILY Days = 30 Comments: NOT GIVEN IN HOSPITAL Valsartan (Diovan) 160 MG TABLET 1 Tablet ORAL DAILY Days = 30 Comments: NOT GIVEN IN HOSPITAL Gabapentin (Neurontin) 300 MG CAP 1 Capsule ORAL TWICE DAILY Days = 30 Comments: Last Taken: 06/01/15 Time: 1030AM Diclofenac Sodium (Voltaren) 1 % GEL..GRAM. 1 Gram On the skin 4 TIMES A DAY Instructions: apply to affected areas Comments: Last Taken: 06/01/15 Time: 1030AM Hydrocortisone (Cortef) 20 MG TABLET 1 Tablet ORAL DAILY Comments: Last Taken: 06/01/15 Time: 1030AM Hydrocortisone (Cortef) 10 MG TAB 1 Tablet ORAL AT BEDTIME Comments: Last Taken: 05/31/15 Time: 2100PM Lactobacillus Acidophilus (Acidophilus) 1 CAP CAP 1 Capsule ORAL DAILY Comments: Last Taken: 06/01/15 Time: 1030AM Alprazolam (Alprazolam) 0.25 MG TABLET 1 Tablet ORAL TWICE DAILY as needed for ANXIETY Comments: NOT GIVEN IN HOSPITAL DEXTRIN (Fiber) 3 GRAM/3.5 GRAM POWDER 1 Tablespoonful ORAL DAILY Comments: NOT GIVEN IN HOSPITAL Furosemide (Lasix) 20 MG TABLET 1 Tablet ORAL DAILY Comments: Last Taken: 02/23/16 Time: 9 AM Thiamine HCl (Thiamine HCl) 100 MG TABLET 1 Tablet ORAL DAILY Comments: LAST GIVEN ON 12/16/15 AT 10 AM Oxycodone HCl (Oxycontin) 10 MG TAB.ER.12H 10 Milligram ORAL TWICE DAILY Comments: Last Taken: 02/22/15 Time: 9 AM Vancomycin HCl (Vancocin HCl) 125 MG CAPSULE 125 Milligram ORAL DAILY Comments: Last Taken: 02/23/16 Time:9:00 AM Duloxetine Hydrochloride (Cymbalta) 30 MG CAPSULE.DR 60 Milligram ORAL DAILY Comments: Last Taken: 02/23/16 Time: 9:00 AM Guaifenesin (Guaifenesin ER) 600 MG TAB.ER.12H 600 Milligram ORAL EVERY 12 HOURS as needed for COUGH Days = 10 Comments: Last Taken: 02/22/15 Time: 9 AM Warfarin Sodium (Coumadin) 2 MG TABLET 2 Tablet ORAL 5 PM Days = 30 Comments: Last Taken: 02/23/16 Time: 12 PM Copies To: VAIBHAV AGUIAR MD Attending Review Statement Documenting Attending: VAIBHAV AGUIAR MD
--- NOTE | 2016-02-22 08:49 | PN- Housestaff ---
Subjective Follow-up For: right shoulder pain Subjective: seen and examined this morning. She was lying comfortably in bed in acute distress. She is to follow with PT OT today. Has been afebrile otherwise this would remain within normal limits no other complaints. Review of Systems Constitutional: Reports: see HPI. Objective Last 24 Hrs of Vital Signs/I&O Vital Signs Date Time Temp Pulse Resp B/P Pulse O2 O2 Flow FiO2 Ox Delivery Rate 02/21 722 97.7 73 20 160/80 93 Room Air 02/20 2214 99.5 84 20 120/60 94 02/20 1528 98.3 85 20 120/60 96 Intake & Output 02/21 1600 02/21 0800 02/21 0000 Intake Total 130 250 Output Total 500 Balance 130 -250 Intake, IV 10 10 Intake, Oral 120 240 Output, Urine 500 Physical Exam General Appearance: Alert, Oriented X3, Cooperative Cardiovascular: Regular Rate, Normal S1, Normal S2, No Murmurs Lungs: Clear to Auscultation, Normal Air Movement Abdomen: Normal Bowel Sounds, Soft, No Tenderness Extremities: No Clubbing, No Cyanosis Current Medications: Current Medications Sig/Gricelda Start time Last Medication Dose Route Stop Time Status Admin Acetaminophen 650 MG Q6P PRN 02/18 161 AC PO Alprazolam 0.25 MG BID PRN 02/18 1630 AC 02/20 PO 02/25 1629 2156 Budesonide/ 2 PUF BID 02/18 2200 AC 02/20 Formoterol Fumarate INH 2157 Duloxetine HCl 60 MG DAILY 02/18 1618 AC 02/20 PO 1050 Famotidine 20 MG DAILY 02/18 1618 AC 02/20 PO 1052 Folic Acid 1 MG DAILY 02/18 161 AC 02/20 PO 1048 Furosemide 20 MG DAILY 02/18 1619 AC 02/20 PO 1048 Gabapentin 300 MG BID 02/18 2200 AC 02/20 PO 2156 Guaifenesin 600 MG Q12 02/209 AC 02/20 PO 2224 Hydrocortisone 10 MG QPM 02/18 2200 AC 02/20 PO 2157 Hydrocortisone 20 MG DAILY 02/18 1630 AC 02/20 PO 1051 Hydromorphone HCl 1 MG Q6P PRN 02/18 1615 AC 02/20 IV 1116 Ketorolac 15 MG Q6P PRN 02/18 1615 AC 02/20 Tromethamine IV 2157 Lactobacillus 1 CAP DAILY 02/18 1623 AC 02/20 Acidophilus PO 1052 Lidocaine 1 PAT Q24H 02/18 1615 02/20 EXT 1656 Losartan Potassium 50 MG DAILY 02/18 1630 AC 02/20 PO 1048 Nystatin 1 ROBERTO TID 02/19 2200 02/20 TOP 2158 Polyethylene Glycol 17 GM DAILY 02/18 1617 AC 02/20 PO 1052 Vancomycin HCl 125 MG DAILY 02/18 1630 AC 02/20 PO 1108 Assessment/Plan Assessment: 85-year-old woman with history of chronic back pain and chronic right rotator cuff tear, hypertension, hyperlipidemia, history of PE in the past on Coumadin, history of C. difficile on daily vancomycin oral came with chief complaint of worsening severe right-sided shoulder pain most likely underlying chronic issues. We will admit patient to general medical floor treated for the following problems Severe right-sided shoulder pain with chronic rotator cuff tear PT and OT fllowing. History of hypertension, CHF We will continue her home medications History of C. difficile colitis on daily vancomycin We will continue her medications History of abdominal insufficiency on hydrocortisone Will continue her home medications Supratherapeutic INR on warfarin will dose warfarin accordingly Patient is full code Pharmacological DVT prophylaxis Problem List: 1. Right rotator cuff tendinitis 2. Hypertension Pain Ratin Pain Location: Right shoulder Pain Goal: Remain pain free Pain Plan: mod pp Tomorrow's Labs & Rationales: INR for Coumadin dosing
[2016-02-22 12:41] LABS: PT 18.8 SEC (9.4-12.5)
--- NOTE | 2016-02-22 19:57 | PN- Att Addend ---
Attending Addendum Attending Brief Note Patient still in pain but trying to start lifting her arm will get a physical therapy and occupational therapy today depending on the results might be able to start disposition plans to go home maybe in the morning if not short-term rehabilitation. In the meantime continue present medications. Current Medications Sig/Gricelda Start time Last Medication Dose Route Stop Time Status Admin Acetaminophen 650 MG Q6P PRN 02/18 1615 AC PO Alprazolam 0.25 MG BID PRN 02/18 1630 AC 02/21 PO 02/25 1629 1412 Budesonide/ 2 PUF BID 02/18 2200 AC 02/21 Formoterol Fumarate INH 1221 Duloxetine HCl 60 MG DAILY 02/18 1618 AC 02/21 PO 1220 Famotidine 20 MG DAILY 02/18 1618 AC 02/21 PO 1220 Folic Acid 1 MG DAILY 02/18 1619 AC 02/21 PO 1220 Furosemide 20 MG DAILY 02/18 1619 AC 02/21 PO 1219 Gabapentin 300 MG BID 02/18 2200 AC 02/21 PO 1220 Guaifenesin 600 MG Q12 02/20 2209 AC 02/21 PO 1220 Hydrocortisone 10 MG QPM 02/18 2200 AC 02/20 PO 2157 Hydrocortisone 20 MG DAILY 02/18 1630 AC 02/21 PO 1220 Hydromorphone HCl 1 MG Q6P PRN 02/18 1615 AC 02/20 IV 1116 Ketorolac 15 MG Q6P PRN 02/18 1615 AC 02/21 Tromethamine IV 1221 Lactobacillus 1 CAP DAILY 02/18 1623 AC 02/21 Acidophilus PO 1220 Lidocaine 1 PAT Q24H 02/18 1615 AC 02/21 EXT 1807 Losartan Potassium 50 MG DAILY 02/18 1630 AC 02/21 PO 1220 Nystatin 1 ROBERTO TID 02/19 2200 AC 02/21 TOP 1808 Oxycodone HCl 10 MG BID 02/21 1358 AC 02/21 PO 1412 Polyethylene Glycol 17 GM DAILY 02/18 1617 AC 02/20 PO 1052 Vancomycin HCl 125 MG DAILY 02/18 1630 AC 02/21 PO 1221 Laboratory Tests 02/22/16 1200: PT 18.8 H, INR 1.80 H Vital Signs Date Time Temp Pulse Resp B/P Pulse O2 O2 Flow FiO2 Ox Delivery Rate 02/21 1220 160/80 Intake & Output 02/21 1600 Intake Total 600 Output Total 1275 Balance -675 Intake, IV 0 Intake, Oral 600 Number 2 Bowel Movements Output, Urine 1275
[2016-02-22 22:48] VITALS: BP 134/60
[2016-02-23 06:20] VITALS: BP 128/64
[2016-02-23 08:19] LABS: PT 15.9 SEC (9.4-12.5)
[2016-02-23 09:49] VITALS: BP 128/64
--- NOTE | 2016-02-23 14:18 | Patient Discharge Instructions ---
Discharge Instructions General Discharge Information You were seen/treated for: Severe right-sided shoulder pain mostly secondry to chronic rotator cuff tear Special Instructions: Please follow up with your PCP within one week please do INR as an out patient and report the result to your PCP Diet Continue normal diet: Yes Recommended Diet: Heart Healthy Activity Full Activity/No Limits: Yes Activity Self Limited: Yes Acute Coronary Syndrome Inclusion Criteria At DC or during hospital stay patient has or had the following: ACS DIAGNOSIS No Discharge Core Measures Meds if any: Prescribed or Continued at Discharge Meds if any: NOT Prescribed or Continued at Discharge Congestive Heart Failure Inclusion Criteria At DC or during hospital stay patient has or had the following: CHF DIAGNOSIS No Discharge Core Measures Meds if any: Prescribed or Continued at Discharge Meds if any: NOT Prescribed or Continued at Discharge Cerebrovascular accident Inclusion Criteria At DC or during hospital stay patient has or had the following: CVA/TIA Diagnosis No Discharge Core Measures Meds if any: Prescribed or Continued at Discharge Meds if any: NOT Prescribed or Continued at Discharge Venous thromboembolism Inclusion Criteria VTE Diagnosis No VTE Type NONE VTE Confirmed by (Test) NONE Discharge Core Measures - Per Current guidelines, there needs to be overlap - treatment for the first 5 days of Warfarin therapy. - If discharged on Warfarin prior to 5 days of - overlap therapy, the patient will need to be - assessed for post discharge needs including - *Post discharge parental anticoagulation - *Warfarin and/or parental anticoagulation education - *Follow up date to check INR post discharge At least 5 days overlap therapy as Inpatient No Meds if any: Prescribed or Continued at Discharge Note: Overlap Therapy is Warfarin and Anticoagulant Meds if any: NOT Prescribed or Continued at Discharge
--- NOTE | 2016-02-23 15:49 | PN- Att Addend ---
Attending Addendum Attending Brief Note Patient feeling a little better than pain but trying to move her arm as much as possible. Vital signs are stable she's a febrile. No other changes will discharge today home assisted living with home physical therapy and will get her Coumadin and warfarin before discharge. Followed INR in the next couple of days to continue all her other pain medications. See the discharge summary and CMR.
== END 2016-02-23 15:30 | disposition home health service (06) | DRG 558 ==
LOC: ERH 10:09 → 2NA 15:36 → ERHI 15:36 → 2NA 20:31
PROVIDERS: Emergency Medicine; Internal Medicine; Radiology Diagnostic Radiology; Student in an Organized Health Care Education/Training Program; ADMIT Internal Medicine
DX: M75.101 Unspecified rotator cuff tear or rupture of right shoulder, not specified as traumatic (principal); A04.7 Enterocolitis due to Clostridium difficile; E27.40 Unspecified adrenocortical insufficiency; I11.0 Hypertensive heart disease with heart failure; I50.9 Heart failure, unspecified; J44.9 Chronic obstructive pulmonary disease, unspecified; E78.5 Hyperlipidemia, unspecified; Z86.711 Personal history of pulmonary embolism; Z79.01 Long term (current) use of anticoagulants
CPT/HCPCS: 2NAP; 36415; 73030-RT; 82436; 93005; 93010; 96374; 96375; 97003-GO; 97165-GO; J1885; J3360; J3490; J7040

== ENCOUNTER 2016-05-20 15:03 | Inpatient (IN) | payer OTHER, MEDICARE ==
[~2016-05-20] VITALS: Ht 160 cm; Wt 75.8 kg
[2016-05-20] MEDS ORDERED: FOLIC ACID1 M1 PO (15:09)
--- NOTE | 2016-05-20 15:12 | NUR ---
PER PT HEADACHE X 10 DAYS WORSENING IN PROGRESSION STARTED WITH NAUSEA, THEN DIARRHEA, THEN CHILLS... NOW WITH HEADACHE PER STAFF AT ASSISTED LIVING PT SAT WAS 88. PLACED ON O2 IN ED 2 LITERS 97-98
--- NOTE | 2016-05-20 15:31 | ED HEADACHE COMPLAINT ---
History of Present Illness General Chief Complaint: Headache Stated Complaint: BIBA, H/A X 10 DAYS Source: patient, old records, EMS Exam Limitations: no limitations Vital Signs & Intake/Output Vital Signs & Intake/Output Vital Signs Date Time Temp Pulse Resp B/P Pulse O2 O2 Flow FiO2 Ox Delivery Rate 05/20 1746 94 05/20 1730 97.1 86 18 120/53 96 Nasal 2.0L Cannula 05/20 1650 98.7 84 20 123/68 95 Nasal 3.0L Cannula 05/20 1557 97 Nasal 2.0L Cannula 05/20 1510 20 98 Nasal 3.0L Cannula 05/20 1509 92 22 140/60 86 Room Air 05/20 1508 99.0 Allergies Coded Allergies: codeine (Severe, UNKNOWN PER PT 02/19/16) Uncoded Allergies: ALL ANTIBIOTICS (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 1 GM TOP 4 TIMES/DAY HAND PAIN ( Reported) apply to affected area(s) Duloxetine HCl (Cymbalta) 60 MG CAPSULE.DR 1 CAP PO DAILY PAIN AND DEPRESSION (Reported) Famotidine 20 MG TABLET 1 TAB PO DAILY GASTRITIS (Reported) Fluticasone/Salmeterol (Advair 250-50 Diskus) 250 MCG-50 MCG/DOSE BLST.W.DEV 1 PUF INH BID COPD (Reported) Folic Acid 1 MG TABLET 1 TAB PO DAILY SUPPLEMENT (Reported) Furosemide (Lasix) 20 MG TABLET 1 TAB PO DAILY heart (Reported) Gabapentin (Neurontin) 300 MG CAPSULE 1 CAP PO BID NEUROPATHY (Reported) Guaifenesin (Guaifenesin ER) 600 MG TAB.ER.12H 600 MG PO Q12 PRN COUGH Hydrocortisone (Cortef) 20 MG TABLET 1 TAB PO DAILY ADRENAL INSUFFICIENCY ( Reported) Hydrocortisone (Cortef) 10 MG TABLET 1 TAB PO QPM ADRENAL INSUFFIIENTY ( Reported) Lactobacillus Acidophilus (Acidophilus) 1 EACH CAPSULE 1 CAP PO DAILY GI ( Reported) Multivitamin (Multiple Vitamins) 1 EACH TABLET 1 TAB PO DAILY SUPPLEMENT ( Reported) Oxycodone HCl (Oxycontin) 10 MG TAB.ER.12H 10 MG PO BID PAIN (Reported) Thiamine HCl 100 MG TABLET 1 TAB PO DAILY SUPPLEMENT (Reported) Valsartan (Diovan) 160 MG TABLET 1 TAB PO DAILY BP (Reported) Vancomycin HCl (Vancocin HCl) 125 MG CAPSULE 125 MG PO DAILY C DIFFICLE ( Reported) Warfarin Sodium (Coumadin) 2 MG TABLET 2 TAB PO 1700 BLOOD THINNER Wheat Dextrin (Benefiber) 3 GRAM/3.8 GRAM POWDER 1 TBSP PO DAILY CONSTIPATION (Reported) Triage Note: PER PT HEADACHE X 10 DAYS WORSENING IN PROGRESSION STARTED WITH NAUSEA, THEN DIARRHEA, THEN CHILLS... NOW WITH HEADACHE PER STAFF AT ASSISTED [facility]IV[facility] PT SAT WAS 88. Triage Nurses Notes Reviewed? yes Onset: Last week Duration: day(s):, constant, continues in ED Timing: recent history Quality/Severity: moderate, severe, achy, throbbing Head Injury Location: frontal No Modifying Factors: none Modifying Factors: Worsens With: movement. Associated Symptoms: fatigue, nausea/vomiting, weakness LMP (ages 10-50): post menopausal : No Patient currently breastfeeds: No HPI: 10 days prior to admission patient complains of frontal headache constant moderate to severe associated with frequent loose watery stool improved after 2 days then complained of increased fatigue anorexia nausea sleeping and dyspnea on exertion. She denies fever chills chest pain cough vomiting abdominal pain dysuria rash bleeding. Past History Travel History Traveled to [place] past 21 day No Medical History Any Pertinent Medical History? see below for history Neurological: CVA EENT: NONE Cardiovascular: CHF, hypertension, hyperlipidemia, Endocarditis Respiratory: COPD (on 2 L oxygen at home) Gastrointestinal: diverticulitis, RECURRENT c. 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 Hx Contributory? No Review of Systems Review of Systems Constitutional: Reports: see HPI, malaise, weakness. Eyes: Reports: no symptoms. Ears, Nose, Throat, Mouth: Reports: no symptoms. Respiratory: Reports: see HPI, short of breath. Cardiovascular: Reports: no symptoms. Gastrointestinal/Abdominal: Reports: see HPI, diarrhea, nausea. Genitourinary: Reports: no symptoms. Musculoskeletal: Reports: no symptoms. Skin: Reports: no symptoms. Neurological/Psychological: Reports: see HPI, headache, weakness. Hematologic/Endocrine: Reports: no symptoms. Endocrine: Reports: no symptoms. Immunologic/Allergic: Reports: no symptoms. All Other Systems: Reviewed and Negative Physical Exam Physical Exam General Appearance: well developed/nourished, alert, awake, anxious, moderate distress, obese Head: atraumatic, normal appearance Eyes: Bilateral: normal appearance, PERRL, EOMI. Ears, Nose, Throat: normal pharynx, dry mucous membranes Neck: normal inspection, supple, full range of motion, trachea midline, no midline tenderness Respiratory: chest non-tender, no respiratory distress, quiet respiration, decreased breath sounds Cardiovascular: regular rate/rhythm, normal peripheral pulses, norml femoral pulses equa Gastrointestinal: normal bowel sounds, soft, non-tender, no organomegaly Back: normal inspection, normal range of motion, no vertebral tenderness Extremities: normal inspection, normal capillary refill, normal range of motion, no edema, no ligament instability Psychiatric: awake, alert, oriented x 3 Cranial Nerves: normal hearing, normal speech, PERRL Coordination/Gait: normal finger to nose Motor/Sensory: no motor/sensory deficits Reflexes: 2+: bicep (R), bicep (L). Skin: intact, normal color, warm/dry Lymphatic: no anterior cervical cecy Core Measures Severe Sepsis Present: No Septic Shock Present: No Progress Differential Diagnosis: cluster [place]AST[place], intracranial Hem., migraine [place], tension [place], viral cephalgia Plan of Care: Orders Procedure Date/time Status PROTHROMBIN TIME 05/21 599 Active CBC WITHOUT DIFFERENTIAL 05/21 599 Active BASIC ELECTROLYTES PLUS BUN&CR 05/21 599 Active Regular Diet 05/20 D Active Pathway - chart 05/21 1755 Active House Staff 05/20 175 Active Patient Data 05/20 175 Active Code Status 05/20 175 Active Patient Data 05/20 175 Active OXYGEN SETUP (GEN) 05/20 1717 Active Saline Lock 05/20 171 Active Admit to inpatient 05/20 171 Active Vital Signs 05/20 171 Active Activity/Ambulation 05/20 171 Active Code Status 05/20 171 Complete EKG 05/20 1554 Active Intake & Output 05/20 1546 Active URINALYSIS 05/20 1523 Complete TROPONIN LEVEL 05/20 152 Complete PROTHROMBIN TIME 05/20 1523 Complete COMPREHENSIVE METABOLIC PANEL 05/20 1523 Complete CBC WITHOUT DIFFERENTIAL 05/20 1523 Complete B-TYPE NATRIURETIC PEP (BNP) 05/20 1523 Complete VTE Mechanical Prophylaxis 05/20 UNK Active Current Medications Sig/Gricelda Start time Last Medication Dose Stop Time Status Admin Acetaminophen 650 MG Q6 PRN 05/20 1800 UNVr (Tylenol) Laboratory Tests 05/20/16 1725: Urinalysis LIGHT H, Urine Color YEL, Urine Clarity HAZY H, Urine pH 5.5, Ur Specific [place] 1.025, Urine Protein TRACE H, Urine Ketones TRACE H, Urine Nitrite NEG, Urine Bilirubin NEG, Urine Urobilinogen 0.2, Ur Leukocyte Esterase MOD H, Ur Microscopic SEDIMENT EXAMINED, Urine RBC RARE, Urine WBC 25-50 H, Ur Epithelial Cells FEW, Urine Bacteria FEW H, Hyaline Casts 3-5 H, Urine Mucus FEW, Urine Hemoglobin NEG, Urine Glucose NEG 05/20/16 1537: Anion Gap 8, Estimated GFR 25 L, BUN/Creatinine Ratio 19.5, Glucose 119 H, Calcium 9.3, Total Bilirubin 0.5, AST 31, ALT 34, Alkaline Phosphatase 49, Troponin I < 0.01, [id number] Pept 152 H, Total Protein 6.3, Albumin 3.6 , Globulin 2.7, Albumin/Globulin Ratio 1.3, PT 62.3 *H, INR 6.04 *H, CBC w Diff NO MAN DIFF REQ, RBC 5.13, MCV 82.8, MCH 26.2 L, RDW 17.0 H, MPV 8.1, Gran % 61.2, Lymphocytes % 23.5, Monocytes % 11.3 H, Eosinophils % 3.2, Basophils % 0.8, Absolute Granulocytes 4.5, Absolute Lymphocytes 1.7, Absolute Monocytes 0.8 H, Absolute Eosinophils 0.2, Absolute Basophils 0.1, PUBS MCHC 31.7 L Diagnostic Imaging: Viewed by Me: Radiology Read, CT Scan. Discussed w/RAD: Radiology Read, CT Scan. Radiology Impression: No acute intracranial pathology. Chronic parenchymal changes as described above. CXR Impression: No evidence of acute pulmonary pathology. No significant interval change compared to prior radiography. Initial ED EKG: normal axis, normal intervals, normal p-waves, normal QRS complex, normal sinus rhythm, no ST T wave changes Prior EKG: unchanged Rhythm Strip: normal sinus rhythm Departure Departure Time of Disposition: 1730 Disposition: STILL A PATIENT Condition: Stable Clinical Impression Primary Impression: Acute kidney injury Secondary Impressions: Headache Qualifiers: Headache type: unspecified Headache chronicity pattern: acute headache Intractability: not intractable Qualified Code: R51 - Headache Hypoxia Warfarin-induced coagulopathy Referrals: VAIBHAV AGUIAR MD (PCP/Family) Departure Forms: Customer Survey General Discharge Information Admission Note Spoke With: VAIBHAV AGUIAR MD Documentation of Exam: Documentation of any treatments & extenuating circumstances including Concerns Regarding Discharge (functional status, medication knowledge or non-compliance, living conditions, etc.) that warrant an admission rather than observation: IV hydration serial lab exam medication adjustment supplemental oxygen physical therapy beta agonist nebs follow cultures continuing care discharge planning
[2016-05-20 15:48] LABS: ABSOLUTE BASOPHIL COUNT 0.1 /CUMM (0.0-0.2); ABSOLUTE EOSINOPHIL COUNT 0.2 /CUMM (0.0-0.7); ABSOLUTE GRANULOCYTE CT 4.5 /CUMM (1.4-6.5); ABSOLUTE LYMPH COUNT 1.7 /CUMM (1.2-3.4); ABSOLUTE MONOCYTE COUNT 0.8 /CUMM (0.10-0.60); BASOPHIL % 0.8 % (0.0-2.0); EOSINOPHIL % 3.2 % (0-5); GRANULOCYTE % 61.2 % (42.2-75.2); HEMATOCRIT 42.5 % (37-47); MEAN CORPUSCULAR HGB 26.2 PG (27.0-31.0); MEAN CORPUSCULAR HGB CONC 31.7 G/DL (33.0-37.0); MEAN CORPUSCULAR VOLUME 82.8 FL (81.0-99.0); MEAN PLATELET VOLUME 8.1 FL (7.4-10.4); PLATELET COUNT 297 /CUMM (130-400); RED BLOOD CELL CT 5.13 /CUMM (4.20-5.40); WHITE BLOOD CELL COUNT 7.4 /CUMM (4.8-10.8)
--- NOTE | 2016-05-20 15:53 | NUR ---
ASSUMED CARE, IV PLACED, AND PT MEDICATED WITH ZOFRAN FOR SLIGHT NAUSEA AND MORPHINE FOR 5/10 HEADACHE, THAT PT STATES THAT SHE HAS HAD FOR OVER A WEEK. DENIES VISUAL DISTURBANCES, V/D AT THIS TIME. PT STATES THAT SHE HAS HISTORY OF C-DIFF IN THE PAST , BUT HAD A FECAL TRANSPLANT AND HAS BEEN FREE OF C-DIFF FOR YEARS. PT ALERT AND ORIENTED AND HER DAUGHTER IS AT BEDSIDE
--- NOTE | 2016-05-20 16:00 | NUR ---
PT NOTED WITH +2 PEDAL EDEMA TO BLE, PT AND HER DAUGHTER STATE THAT EDEMA IS MUCH BETTER THAN IT HAS BEEN IN THE PAST
--- NOTE | 2016-05-20 16:14 | NUR ---
CRITICAL TEST RESULTS [id number] ELIEZER GARCIA 85 F TESTS AND RESULTS: PT 62.3 INR 6.04 Results received and read back by: ADRIANE HORAN Results received date and time: 05/20/16 1615 The following provider was notified of the results, and read the results back: DR JUAREZ Notified date and time: 05/20/16 at 1616
[2016-05-20 16:15] LABS: PT 62.3 SEC (9.4-12.5)
--- NOTE | 2016-05-20 16:25 | NUR ---
PT TO CT SCAN
--- NOTE | 2016-05-20 16:25 | NUR ---
PT TO CT VIA STRETCHER
--- NOTE | 2016-05-20 16:44 | RADIOLOGY REPORT ---
EXAMINATION: XR PORTABLE CHEST CLINICAL INFORMATION: Shortness of breath. COMPARISON: Chest radiography 12/13/2015. TECHNIQUE: Portable AP view of the chest was obtained. FINDINGS: Persistent asymmetric elevation of the right hemidiaphragm. No new consolidation, pleural effusion, pulmonary edema, or pneumothorax. Mediastinal contours are unchanged. No acute osseous abnormalities. Decreased acromiohumeral distance bilaterally suspicious for chronic rotator cuff pathology. IMPRESSION: No evidence of acute pulmonary pathology. No significant interval change compared to prior radiography.
--- NOTE | 2016-05-20 16:57 | CT SCAN REPORT ---
EXAMINATION: CT HEAD WITHOUT CONTRAST CLINICAL INFORMATION: Headache on warfarin. COMPARISON: Head CT 11/16/2013. TECHNIQUE: Contiguous axial imaging was performed from the skull base to vertex without intravenous administration of contrast. DLP: 601 mGy-cm FINDINGS: There is no evidence of acute intracranial hemorrhage or territorial infarction. No abnormal mass effect or midline shift is seen. Tan to white matter differentiation is well preserved. No extra-axial fluid collections are identified. The ventricles and sulcal spaces are proportionate without hydrocephalus. There is no new abnormal attenuation within the brain parenchyma. There is periventricular, subcortical, and deep white matter hypoattenuation, which likely reflects sequela of ischemic microangiopathy. Basal ganglia calcifications. The osseous structures and soft tissues are unremarkable. The mastoid air cells and visualized portions of the paranasal sinuses are well aerated. IMPRESSION: No acute intracranial pathology. Chronic parenchymal changes as described above.
--- NOTE | 2016-05-20 17:27 | NUR ---
PT REMAINS AWAKE ALERT AND ORIENTED, ASSISTED UP TO COMMODE AND URINE SENT. PT NOTED TO BE VERY NERVOUS AND STATES THAT SHE IS AFRAID SHE IS GOING TO FALL. PT USES WALKER AT HOME. PT COMPLAINS OF FEELING THIRSTY, PER MD PT MAY HAVE WATER AT THIS TIME. MD AT BEDSIDE DISCUSSING PLAN OF CARE
--- NOTE | 2016-05-20 17:31 | NUR ---
PT TRIALED OFF OF O2 2L VIA NC, O2 SAT NOTED TO DROP TO 89-90 % , PLACED BACK ON O2 AND MD MADE AWARE, RESP CALLED FOR NEB TX. PT DENIES FEELING SOB .
--- NOTE | 2016-05-20 17:39 | NUR ---
PT MEDICATED AT THIS TIME WITH MORPHINE 4MG PER ORDER FOR HEADACHE. RESP AT BEDSIDE . PT STATES THAT SHE USED TO BE ON O2 AT HOME BUT SHE NO LONGER NEEDS IT. ALSO STATES THAT WHEN SHE AMBULATES AT HOME SHE STARTS TO WHEEZE. NO WHEEZING NOTED AT THIS TIME
--- NOTE | 2016-05-20 17:42 | NUR ---
NSR ON MONITOR AT THIS TIME HR 80
--- NOTE | 2016-05-20 17:58 | History & Physical ---
See Addendum General Information and HPI MD Statement: I have seen and personally examined ELIEZER GARCIA and documented this H&P. The patient is a 85 year old F who presented with a patient stated chief complaint of worsening weakness and feeling of being not well. Source of Information: patient, family Exam Limitations: no limitations History of Present Illness: Patient is 85-year-old woman from assisted living with past medical history significant for non-oxygen dependent COPD, hypertension, congestive heart failure, chronic back pain, history of PE in the past on anticoagulation, history of chronic rotator cuff tear, history of C. difficile and fecal implantation on the ED vancomycin came to the emergency room came with chief complaint of worsening weakness and not feeling well from couple of days. According to patient she had headache from couple of weeks and she also went to see her PCP, currently headache is better but she felt that she is getting weaker and weaker and also very short of breath with walking a few steps. She also had diarrhea a few weeks ago but she didn't have any bowel movement for 2 days now and last bowel movement was well formed. She denied any fever but admits that she becomes very diaphoretic take on walking a few steps and short of breath but denied any chest pain, bloating cough vision, dizziness, any urinary complaints. Her vital signs on admission were temperature 99.0, pulse 92, respiratory rate 22, blood pressure 140/60 and she was saturating 86 on room air and later ON 3 L of oxygen she was saturating 98%. Labs on admission were WBC count 7.4, hemoglobin 13.5, hematocrit 42.5, platelet count 297, sodium 137, chloride 96, BUNs 37 and creatinine 1.9, PTT 62.3 and INR 6.04 Urinalysis showed trace proteins and trace ketones but no nitrates, leukocyte esterase is moderate with urine WBC of 25-50. Chest x-ray was negative for any pulmonary pathology Head CT was negative for any intracranial pathology Allergies/Medications Allergies: Coded Allergies: codeine (Severe, UNKNOWN PER PT 02/19/16) Uncoded Allergies: ALL ANTIBIOTICS (HAD FECAL TRANSPLANT 05/20/16) Home Med list Alprazolam 0.25 MG TABLET 1 TAB PO BIDP PRN ANXIETY (Reported) Calcium Carbonate/Vitamin D3 (Calcium + Vitamin D Tablet) 600 MG-200 TABLET 1 TAB PO BID SUPPLEMENT (Reported) Diclofenac Sodium (Voltaren) 1 % GEL..GRAM. 1 GM TOP 4 TIMES/DAY HAND PAIN ( Reported) apply to affected area(s) Duloxetine HCl (Cymbalta) 60 MG CAPSULE.DR 1 CAP PO DAILY PAIN AND DEPRESSION (Reported) Famotidine 20 MG TABLET 1 TAB PO DAILY GASTRITIS (Reported) Fluticasone/Salmeterol (Advair 250-50 Diskus) 250 MCG-50 MCG/DOSE BLST.W.DEV 1 PUF INH BID COPD (Reported) Folic Acid 1 MG TABLET 1 TAB PO DAILY SUPPLEMENT (Reported) Furosemide (Lasix) 20 MG TABLET 1 TAB PO DAILY heart (Reported) Gabapentin (Neurontin) 300 MG CAPSULE 1 CAP PO BID NEUROPATHY (Reported) Guaifenesin (Guaifenesin ER) 600 MG TAB.ER.12H 600 MG PO Q12 PRN COUGH Hydrocortisone (Cortef) 20 MG TABLET 1 TAB PO DAILY ADRENAL INSUFFICIENCY ( Reported) Hydrocortisone (Cortef) 10 MG TABLET 1 TAB PO QPM ADRENAL INSUFFIIENTY ( Reported) Lactobacillus Acidophilus (Acidophilus) 1 EACH CAPSULE 1 CAP PO DAILY GI ( Reported) Multivitamin (Multiple Vitamins) 1 EACH TABLET 1 TAB PO DAILY SUPPLEMENT ( Reported) Oxycodone HCl (Oxycontin) 10 MG TAB.ER.12H 10 MG PO BID PAIN (Reported) Thiamine HCl 100 MG TABLET 1 TAB PO DAILY SUPPLEMENT (Reported) Valsartan (Diovan) 160 MG TABLET 1 TAB PO DAILY BP (Reported) Vancomycin HCl (Vancocin HCl) 125 MG CAPSULE 125 MG PO DAILY C DIFFICLE ( Reported) Warfarin Sodium (Coumadin) 2 MG TABLET 2 TAB PO 1700 BLOOD THINNER Wheat Dextrin (Benefiber) 3 GRAM/3.8 GRAM POWDER 1 TBSP PO DAILY CONSTIPATION (Reported) Compliance With Home Meds: GOOD Past History Travel History Traveled to [place] past 21 day No Medical History Neurological: CVA EENT: NONE Cardiovascular: CHF, hypertension, hyperlipidemia, Endocarditis Respiratory: COPD (on 2 L oxygen at home) Gastrointestinal: diverticulitis, RECURRENT c. 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 Psychosocial History Services at Home: Home Health Aide, Nursing Functional Ability ADLs Independent: dressing, eating, toileting, bathing. Ambulation: walker Review of Systems Review of Systems Constitutional: Reports: malaise, weakness. EENTM: Denies: double vision, visual changes. Cardiovascular: Reports: edema. Denies: chest pain. Respiratory: Reports: short of breath. GI: Denies: constipation, diarrhea. Genitourinary: Denies: discharge, dysuria. Exam & Diagnostic Data Last 24 Hrs of Vital Signs/I&O Vital Signs Date Time Temp Pulse Resp B/P Pulse O2 O2 Flow FiO2 Ox Delivery Rate 05/20 1746 94 05/20 1730 97.1 86 18 120/53 96 Nasal 2.0L Cannula 05/20 1650 98.7 84 20 123/68 95 Nasal 3.0L Cannula 05/20 1557 97 Nasal 2.0L Cannula 05/20 1510 20 98 Nasal 3.0L Cannula 05/20 1509 92 22 140/60 86 Room Air 05/20 1508 99.0 Intake & Output 05/20 1600 05/20 0800 05/20 0000 Intake Total 1000 Output Total Balance 1000 Intake, IV 1000 Physical Exam General Appearance Alert, Oriented X3, Cooperative Skin No Significant Lesion Cardiovascular Regular Rate, Normal S1, Normal S2 Lungs Normal Air Movement, slight left-sided basilar crackles Abdomen Soft, No Tenderness Extremities mild edema bilateral Diagnostic Data EKG Results No acute ST, T-wave changes CXR Results SERVICE DATE: 05/20/16 EXAM TYPE: RAD - XRY-PORTABLE CHEST XRAY EXAMINATION: XR PORTABLE CHEST CLINICAL INFORMATION: Shortness of breath. COMPARISON: Chest radiography 12/13/2015. TECHNIQUE: Portable AP view of the chest was obtained. FINDINGS: Persistent asymmetric elevation of the right hemidiaphragm. No new consolidation, pleural effusion, pulmonary edema, or pneumothorax. Mediastinal contours are unchanged. No acute osseous abnormalities. Decreased acromiohumeral distance bilaterally suspicious for chronic rotator cuff pathology. IMPRESSION: No evidence of acute pulmonary pathology. No significant interval change compared to prior radiography. Other Results EXAMINATION: CT HEAD WITHOUT CONTRAST CLINICAL INFORMATION: Headache on warfarin. COMPARISON: Head CT 11/16/2013. TECHNIQUE: Contiguous axial imaging was performed from the skull base to vertex without intravenous administration of contrast. DLP: 601 mGy-cm FINDINGS: There is no evidence of acute intracranial hemorrhage or territorial infarction. No abnormal mass effect or midline shift is seen. Tan to white matter differentiation is well preserved. No extra-axial fluid collections are identified. The ventricles and sulcal spaces are proportionate without hydrocephalus. There is no new abnormal attenuation within the brain parenchyma. There is periventricular, subcortical, and deep white matter hypoattenuation, which likely reflects sequela of ischemic microangiopathy. Basal ganglia calcifications. The osseous structures and soft tissues are unremarkable. The mastoid air cells and visualized portions of the paranasal sinuses are well aerated. IMPRESSION: No acute intracranial pathology. Chronic parenchymal changes as described above. Assessment/Plan Assessment: Patient is 85-year-old woman from assisted living with past medical history significant for non-oxygen dependent COPD, hypertension, congestive heart failure, chronic back pain, history of PE in the past on anticoagulation, history of chronic rotator cuff tear, history of C. difficile and fecal implantation on the ED vancomycin came to the emergency room came with chief complaint of worsening weakness and not feeling well from couple of days and found to have hypoxic on admission along with supratherapeutic INR and elevated creatinine. We will admit patient on general medical floor and will take care for the following problems Problem #1 AK I most likely secondary to dehydration as she was vomiting recently and in adequate oral intake, we will rule out UTI -We will gently hydrate the patient and with repeat chest x-ray in a.m. for any fluid overload -We will encourage oral fluid intake -We'll repeat BEP in a.m. -We will hold Lasix for now and will resume when baseline creatinine -Urinalysis showed WBC count more than 25, patient denies any symptoms and we will send urine culture and hold any antibiotics for now Problem #2 supratherapeutic INR she is on Coumadin -We will hold warfarin and check INR in the morning and we will dose accordingly if needed Problem #3 history of C. difficile -We will continue home dose of vancomycin Problem #4 history of hypertension -We will continue home medications Problem #5 history of CHF -We'll hold Lasix for now Problem #6 history of hepatic insufficiency on hydrocortisone -Continue home medications Her INR is supratherapeutic. We'll hold any pharmacological DVT prophylaxis Heart healthy diet Patient is full code As Ranked By This Provider Problem List: 1. Dehydration 2. Acute kidney injury Core Measures/Miscellaneous Acute Coronary Syndrome ACS Diagnosis: No Cerebrovascular Accident CVA/TIA Diagnosis: No Congestive Heart Failure CHF Diagnosis: No Venous Thromboembolism VTE Risk Factors: Age > 40 No [facility] VTE prophylaxis d/t: No contraindications No VTE Pharm Prophylaxis d/t: Blood coag disorder VTE Diagnosis: No VTE Type: NONE VTE Confirmed by (Test): NONE Severe Sepsis Severe Sepsis Present: No Septic Shock Septic Shock Present: No Miscellaneous Documentation Attending Case Discussed With: VAIBHAV AGUIAR MD Primary Care Physician: VAIBHAV AGUIAR MD Patient sees these Specialists Cardiology Level of Patient Care: General Medicine
--- NOTE | 2016-05-20 18:02 | NUR ---
FOOD TRAY ORDERED. DAUGHTER REMAINS AT BEDSIDE
--- NOTE | 2016-05-20 18:28 | NUR ---
PT PROVIDED WITH FOOD TRAY , HOUSE STAFF AT BEDSIDE TO EVAL
--- NOTE | 2016-05-20 18:56 | Admission Certification ---
Admission Certification Certification Statement - As attending physician, I certify that at the time of - admission, based on clinical presentation, severity of - symptoms, need for further diagnostic testing and - therapeutic interventions, and risk of adverse outcomes - without in-hospital treatment, in my clinical assessment, - this patient requires an acute hospital stay for a minimum - of two nights or longer. I have also considered psychsocial - factors such as support system, advanced age, financial - issues, cognitive issues, and failed out-patient treatments, - past re-admission history, safety of patient, and lack of - compliance as applicable. Specific rationale supporting this admission is: weakness LING.
--- NOTE | 2016-05-20 19:00 | NUR ---
NS INFUSING AT THIS TIME AT 75 ML/HR , REPORT GIVEN AND TRANSPORT CALLED
--- NOTE | 2016-05-20 19:02 | PN- Att Addend ---
Attending Addendum Attending Brief Note 85 year old female with many comorbidities for the last week or so not feeling well she lives in assisted living followed by the nurse weak progressively worse poor appetite nurse saw her today BP lower hypoxemic and sent to the ER for evaluation has increased BUN and creatinine will panculture gentle hydration follow labs.will hold off with antibiotics patient has had recurrent C diff in the past. Laboratory Tests 05/20 05/20 1725 1537 Chemistry Sodium (137 - 145 mmol/L) 137 Potassium (3.5 - 5.1 mmol/L) 4.0 Chloride (98 - 107 mmol/L) 96 L Carbon Dioxide (22 - 30 mmol/L) 33 H Anion Gap (5 - 16) 8 BUN (7 - 17 mg/dL) 37 H Creatinine (0.5 - 1.0 mg/dL) 1.9 H Estimated GFR (>60 ml/min) 25 L BUN/Creatinine Ratio (7 - 25 %) 19.5 Glucose (65 - 99 mg/dL) 119 H Calcium (8.4 - 10.2 mg/dL) 9.3 Total Bilirubin (0.2 - 1.3 mg/dL) 0.5 AST (14 - 36 U/L) 31 ALT (9 - 52 U/L) 34 Alkaline Phosphatase (<127 U/L) 49 Troponin I (< 0.11 ng/ml) < 0.01 Uax-G-Czwtfdkypva Pept (<125 pg/mL) 152 H Total Protein (6.3 - 8.2 g/dL) 6.3 Albumin (3.5 - 5.0 g/dL) 3.6 Globulin (1.9 - 4.2 gm/dL) 2.7 Albumin/Globulin Ratio (1.1 - 2.2 %) 1.3 Coagulation PT (9.4 - 12.5 SEC) 62.3 *H INR (0.90 - 1.19) 6.04 *H Hematology CBC w Diff NO MAN DIFF REQ WBC (4.8 - 10.8 /CUMM) 7.4 RBC (4.20 - 5.40 /CUMM) 5.13 Hgb (12.0 - 16.0 G/DL) 13.5 Hct (37 - 47 %) 42.5 MCV (81.0 - 99.0 FL) 82.8 MCH (27.0 - 31.0 PG) 26.2 L RDW (11.5 - 14.5 %) 17.0 H Plt Count (130 - 400 /CUMM) 297 MPV (7.4 - 10.4 FL) 8.1 Gran % (42.2 - 75.2 %) 61.2 Lymphocytes % (20.5 - 51.1 %) 23.5 Monocytes % (1.7 - 9.3 %) 11.3 H Eosinophils % (0 - 5 %) 3.2 Basophils % (0.0 - 2.0 %) 0.8 Absolute Granulocytes (1.4 - 6.5 /CUMM) 4.5 Absolute Lymphocytes (1.2 - 3.4 /CUMM) 1.7 Absolute Monocytes (0.10 - 0.60 /CUMM) 0.8 H Absolute Eosinophils (0.0 - 0.7 /CUMM) 0.2 Absolute Basophils (0.0 - 0.2 /CUMM) 0.1 PUBS MCHC (33.0 - 37.0 G/DL) 31.7 L Urines Urinalysis LIGHT H Urine Color (YEL,AMB,STR) YEL Urine Clarity (CLEAR) HAZY H Urine pH (5.0 - 8.0) 5.5 Ur Specific [place] (1.001 - 1.035) 1.025 Urine Protein (NEG,<30 MG/DL) TRACE H Urine Ketones (NEG) TRACE H Urine Nitrite (NEG) NEG Urine Bilirubin (NEG) NEG Urine Urobilinogen (0.1 - 1.0 EU/dl) 0.2 Ur Leukocyte Esterase (NEG) MOD H Ur Microscopic SEDIMENT EXAMINED Urine RBC (0 - 5 /HPF) RARE Urine WBC (0 - 2 /HPF) 25-50 H Ur Epithelial Cells (NONE,FEW) FEW Urine Bacteria (NEG/NONE) FEW H Hyaline Casts (0/LPF) 3-5 H Urine Mucus (FEW,NONE) FEW Urine Hemoglobin (NEG) NEG Urine Glucose (N MG/DL) NEG Current Medications Sig/Gricelda Start time Last Medication Dose Route Stop Time Status Admin Acetaminophen 650 MG Q6 PRN 05/20 1800 AC PO Albuterol Sulfate 3 ML ONCE ONE 05/20 1745 DC 05/20 INH 05/20 1746 1735 Alprazolam 0.25 MG .[BIDP] PRN 05/20 1900 UNVr PO 05/27 1859 Budesonide/ 2 PUF BID 05/20 2199 UNVr Formoterol Fumarate INH Duloxetine HCl 60 MG DAILY 05/20 184 UNVr PO Famotidine 20 MG DAILY 05/20 184 UNVr PO Gabapentin 300 MG BID 05/20 2199 UNVr PO Guaifenesin 600 MG Q12 PRN 05/20 1900 UNVr PO Hydrocortisone 20 MG DAILY 05/21 1000 UNVr PO Hydrocortisone 10 MG QPM 05/20 220 UNVr PO Ipratropium [place] 2.5 ML ONCE ONE 05/20 1745 DC 05/20 INH 05/20 1746 1735 Lactobacillus 1 CAP DAILY 05/20 1851 UNVr Acidophilus PO Losartan Potassium 50 MG DAILY 05/21 1000 CANr PO Morphine Sulfate 0 .STK-MED ONE 05/20 1736 DC .ROUTE Morphine Sulfate 4 MG ONCE ONE 05/20 1730 DC 05/20 IV 05/20 1731 1738 Morphine Sulfate 0 .STK-MED ONE 05/20 1551 DC .ROUTE Morphine Sulfate 2 MG ONCE ONE 05/20 1530 DC 05/20 IV 05/20 1531 1553 Ondansetron HCl 0 .STK-MED ONE 05/20 1551 DC .ROUTE Ondansetron HCl 4 MG ONCE ONE 05/20 1530 DC 05/20 IV 05/20 1531 1553 Oxycodone HCl 10 MG BID 05/20 2199 UNVr PO Sodium Chloride 1,000 ML Q13H 05/20 190 UNVr 05/20 IV 1859 Sodium Chloride 500 ML BOLUS ONE 05/20 1730 DC 05/20 IV 05/20 1829 1730 Vancomycin HCl 125 MG DAILY 05/21 1000 UNVr PO Chest x ray showed no acute abnormalities CT of the head no acute changes.
--- NOTE | 2016-05-20 19:06 | NUR ---
PT COMPLAINED OF NAUSEA AFTER EATING DINNER. MEDICATED WITH ZOFRAN PER ORDER
[2016-05-20 19:53] VITALS: BP 124/60
[2016-05-20 23:03] VITALS: BP 102/60
--- NOTE | 2016-05-20 23:15 | NUR ---
PT ARRIVED TO FLOOR VIA STRETCHER WITH DISTRIBUTION STAFF. PT A/OX3, 2L O2 NC, VSS, PAIN 4/10 CHRONIC BACK PAIN, IVF PER ORDER, APLS PER ORDER. DAUGHTER AT BEDSIDE FOR SUPPORT. CALL SHIN IN REACH, EXPLAINED USE, PT EXPRESSED VERABAL UNDERSTANDING. WILL CONTINUE TO MONITOR.
[2016-05-21 06:00] VITALS: BP 122/60
--- NOTE | 2016-05-21 07:06 | NUR ---
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 BLADDER SCAN 194 ML. # [phone] MADE AWARE. WILL CONTINUE TO MONITOR.
[2016-05-21 08:02] LABS: ABSOLUTE BASOPHIL COUNT 0 /CUMM (0.0-0.2); ABSOLUTE EOSINOPHIL COUNT 0.1 /CUMM (0.0-0.7); ABSOLUTE GRANULOCYTE CT 3.5 /CUMM (1.4-6.5); ABSOLUTE LYMPH COUNT 1.4 /CUMM (1.2-3.4); ABSOLUTE MONOCYTE COUNT 0.7 /CUMM (0.10-0.60); BASOPHIL % 0.6 % (0.0-2.0); EOSINOPHIL % 1.9 % (0-5); GRANULOCYTE % 60.5 % (42.2-75.2); MEAN CORPUSCULAR HGB 26.4 PG (27.0-31.0); MEAN CORPUSCULAR HGB CONC 32.2 G/DL (33.0-37.0); PLATELET COUNT 263 /CUMM (130-400); RBC DISTRIBUTION WIDTH 16.9 % (11.5-14.5); RED BLOOD CELL CT 4.49 /CUMM (4.20-5.40); WHITE BLOOD CELL COUNT 5.8 /CUMM (4.8-10.8)
[2016-05-21 08:07] LABS: HEMATOCRIT 36.8 % (37-47)
[2016-05-21 08:30] LABS: PT 65.2 SEC (9.4-12.5)
--- NOTE | 2016-05-21 09:50 | PN- Housestaff ---
Subjective Follow-up For: Acute kidney injury Weakness Subjective: Patient was seen and examined, she complained of constipation, denied abdominal pain, N/V, dysurea. Patient despite having IVF runs at 75cc/h, her lips seemed very dry. Patient was asked to increase fluid intake. vital signs are stable, 0n 2L o2 and 94% sat, will titrate as tolerated.no overnight events. Review of Systems Constitutional: Reports: see HPI. Objective Last 24 Hrs of Vital Signs/I&O Vital Signs Date Time Temp Pulse Resp B/P Pulse O2 O2 Flow FiO2 Ox Delivery Rate 05/21 0600 97.5 85 18 122/60 93 Nasal 2.0L Cannula 05/20 2303 97.8 82 20 102/60 94 Nasal 2.0L Cannula 05/20 2200 96 Nasal 2.0L Cannula 05/20 1953 98.5 97 20 124/60 96 Nasal 2.0L Cannula 05/20 1857 97.9 90 22 125/58 94 Nasal 3.0L Cannula 05/20 1746 94 05/20 1730 97.1 86 18 120/53 96 Nasal 2.0L Cannula 05/20 1650 98.7 84 20 123/68 95 Nasal 3.0L Cannula 05/20 1557 97 Nasal 2.0L Cannula 05/20 1510 20 98 Nasal 3.0L Cannula 05/20 1509 92 22 140/60 86 Room Air 05/20 1508 99.0 Intake & Output 05/21 1600 04/02 0800 04 0000 Intake Total 720 480 Output Total Balance 720 480 Intake, IV 600 Intake, Oral 120 480 Patient 75.75 kg Weight Physical Exam General Appearance: Alert, Oriented X3, Cooperative, No Acute Distress Skin: No Rashes, No Breakdown, No Significant Lesion HEENT: Atraumatic, PERRLA, EOMI, mucous membrane dry Neck: Supple Cardiovascular: Regular Rate, Normal S1, Normal S2 Lungs: Normal Air Movement, Diffuse ronchi and expiratory wheeze Abdomen: Normal Bowel Sounds, Soft, No Tenderness, distended Neurological: Normal Gait, Normal Speech, Strength at 5/5 X4 Ext, Normal Tone, Sensation Intact, Cranial Nerves 3-12 NL, Reflexes 2+ Extremities: No Clubbing, No Cyanosis, No Edema, Normal Pulses Assessment/Plan Assessment: Patient is 85-year-old woman from assisted living with past medical history significant for non-oxygen dependent COPD, hypertension, congestive heart failure, chronic back pain, history of PE in the past on anticoagulation, history of chronic rotator cuff tear, history of C. difficile and fecal implantation on the ED vancomycin came to the emergency room came with chief complaint of worsening weakness and not feeling well from couple of days and found to have hypoxic on admission along with supratherapeutic INR and elevated creatinine. Problem lists #Acute kidney injury -Continue gentle hydration normal saline 75 mL -Repeat BEP tomorrow -Patient was encouraged to increase oral intake -Continue to hold Lasix -Urinalysis showed WBC count more than 25, a symptomatic, urine culture grew multiple coloies suggestive for contamination, would hold off antibiotic patient denies any symptoms a #Supratherapeutic INR she is on Coumadin -INR today 6.32, will continue hold warfarin -PT/INR tomorrow morning #history of C. difficile -We will continue home dose of vancomycin #history of hypertension -We will continue home medications #history of CHF -Continue to hold Lasix #history of hepatic insufficiency on hydrocortisone -Continue home medications DVT prophylaxis warfarin on hold for supra therapeutic INR Heart healthy diet Patient is full code Problem List: 1. Acute kidney injury 2. Supratherapeutic INR Pain Ratin Pain Location: None Pain Goal: Pain 4 or less Pain Plan: Mild pain pathway Tomorrow's Labs & Rationales: CBC, BEP, INR
--- NOTE | 2016-05-21 10:17 | NUR ---
chart reviewed, PT eval canceled to day INR is not therapeutic at 6.04. Will cont to follow in order to complete eval once INR is at safe level.
--- NOTE | 2016-05-21 13:19 | PN- Att Addend ---
Attending Addendum Attending Brief Note Patient in bed has some loose cough cold is my COPD" temp max was 99 vital signs are stable no major changes on physical BUN/creatinine still about the same need to continue gentle hydration with her white count is normal her INR is supratherapeutic we'll hold her Coumadin today again check again tomorrow and continue monitoring the labs with her appetite was a little better today Current Medications Sig/Gricelda Start time Last Medication Dose Route Stop Time Status Admin Acetaminophen 650 MG Q6 PRN 05/20 1800 AC PO Albuterol Sulfate 3 ML ONCE ONE 05/20 1745 DC 05/20 INH 05/20 1746 1735 Alprazolam 0.25 MG BID PRN 05/20 2200 AC PO 05/27 2159 Budesonide/ 2 PUF BID 05/20 220 AC 05/21 Formoterol Fumarate INH 1010 Docusate Sodium 100 MG DAILY NEEDED PRN 05/21 1000 AC PO Duloxetine HCl 60 MG DAILY 05/20 184 AC 05/21 PO 1005 Famotidine 20 MG DAILY 05/20 184 AC 05/21 PO 1005 Gabapentin 300 MG BID 05/20 2200 AC 05/21 PO 1005 Guaifenesin 600 MG Q12 PRN 05/20 1900 AC PO Hydrocortisone 20 MG DAILY 05/21 1000 AC 05/21 PO 1006 Hydrocortisone 10 MG QPM 05/20 2200 AC 05/20 PO 2133 Ipratropium [place] 2.5 ML ONCE ONE 05/20 1745 DC 05/20 INH 05/20 1746 1735 Lactobacillus 1 CAP DAILY 05/20 1851 AC 05/21 Acidophilus PO 1005 Losartan Potassium 50 MG DAILY 05/21 1000 CAN PO Morphine Sulfate 0 .STK-MED ONE 05/20 1736 DC .ROUTE Morphine Sulfate 4 MG ONCE ONE 05/20 1730 DC 05/20 IV 05/20 1731 1738 Morphine Sulfate 0 .STK-MED ONE 05/20 1551 DC .ROUTE Morphine Sulfate 2 MG ONCE ONE 05/20 1530 DC 05/20 IV 05/20 1531 1553 Ondansetron HCl 4 MG ONCE ONE 05/20 1915 DC 05/20 IV 05/20 1916 1906 Ondansetron HCl 0 .STK-MED ONE 05/20 1905 DC .ROUTE Ondansetron HCl 0 .STK-MED ONE 05/20 1551 DC .ROUTE Ondansetron HCl 4 MG ONCE ONE 05/20 1530 DC 05/20 IV 05/20 1531 1553 Oxycodone HCl 10 MG BID 05/20 2199 AC 05/21 PO 1009 Polyethylene Glycol 17 GM DAILY 05/21 1000 AC 05/21 PO 1154 Senna 187 MG AT BEDTIME 05/21 2199 AC PO Sodium Chloride 1,000 ML Q13H 05/20 1900 AC 05/21 IV 0510 Sodium Chloride 500 ML BOLUS ONE 05/20 173 DC 05/20 IV 05/20 1829 1730 Vancomycin HCl 125 MG DAILY 05/21 1000 AC 05/21 PO 1154 Laboratory Tests 05/21/16 0715: Anion Gap 4 L, Estimated GFR 25 L, BUN/Creatinine Ratio 18.9, PT 65.2 *H, INR 6.32 *H, CBC w Diff NO MAN DIFF REQ, RBC 4.49, MCV 82.0, MCH 26.4 L, RDW 16.9 H, MPV 8.0, Gran % 60.5, Lymphocytes % 24.7, Monocytes % 12.3 H, Eosinophils % 1.9, Basophils % 0.6, Absolute Granulocytes 3.5, Absolute Lymphocytes 1.4, Absolute Monocytes 0.7 H, Absolute Eosinophils 0.1, Absolute Basophils 0, PUBS MCHC 32.2 L 05/20/16 1725: Urinalysis LIGHT H, Urine Color YEL, Urine Clarity HAZY H, Urine pH 5.5, Ur Specific [place] 1.025, Urine Protein TRACE H, Urine Ketones TRACE H, Urine Nitrite NEG, Urine Bilirubin NEG, Urine Urobilinogen 0.2, Ur Leukocyte Esterase MOD H, Ur Microscopic SEDIMENT EXAMINED, Urine RBC RARE, Urine WBC 25-50 H, Ur Epithelial Cells FEW, Urine Bacteria FEW H, Hyaline Casts 3-5 H, Urine Mucus FEW, Urine Hemoglobin NEG, Urine Glucose NEG 05/20/16 1537: Anion Gap 8, Estimated GFR 25 L, BUN/Creatinine Ratio 19.5, Glucose 119 H, Calcium 9.3, Total Bilirubin 0.5, AST 31, ALT 34, Alkaline Phosphatase 49, Troponin I < 0.01, Atx-G-Fbyjorwxedf Pept 152 H, Total Protein 6.3, Albumin 3.6 , Globulin 2.7, Albumin/Globulin Ratio 1.3, PT 62.3 *H, INR 6.04 *H, CBC w Diff NO MAN DIFF REQ, RBC 5.13, MCV 82.8, MCH 26.2 L, RDW 17.0 H, MPV 8.1, Gran % 61.2, Lymphocytes % 23.5, Monocytes % 11.3 H, Eosinophils % 3.2, Basophils % 0.8, Absolute Granulocytes 4.5, Absolute Lymphocytes 1.7, Absolute Monocytes 0.8 H, Absolute Eosinophils 0.2, Absolute Basophils 0.1, PUBS MCHC 31.7 L Microbiology 05/20 172 URINE ROUT: Urine Culture - COMP Microbiology Date/Time Procedure - Status Source Growth 05/20 2209 Blood Culture - RES BLOOD 05/20 2209 Blood Culture - RES BLOOD 05/21 1835 Clostridium difficile Toxin A & B - COLB STOOL 05/21 1835 Stool Culture - COLB STOOL 05/20 1724 Urine Culture - COMP URINE ROUT Vital Signs Date Time Temp Pulse Resp B/P Pulse O2 O2 Flow FiO2 Ox Delivery Rate 05/21 0600 97.5 85 18 122/60 93 Nasal 2.0L Cannula Intake & Output 05/21 1600 Intake Total Output Total 300 Balance -300 Output, Urine 300
--- NOTE | 2016-05-21 14:13 | RADIOLOGY REPORT ---
EXAMINATION: XR PORTABLE CHEST CLINICAL INFORMATION: Shortness of breath. COMPARISON: Chest radiography for. TECHNIQUE: Portable AP view of the chest was obtained. FINDINGS: Unchanged mild asymmetric elevation of the right hemidiaphragm. No new consolidation, pulmonary edema, pleural effusion, or pneumothorax. No mediastinal widening. No acute osseous abnormalities. High riding humeri bilaterally, suspicious for chronic rotator cuff pathology. IMPRESSION: No significant interval change compared to prior radiography. No convincing evidence of acute pulmonary pathology. Consider lateral projection of the chest to assess for any lower lobe consolidation if clinically warranted.
[2016-05-21 14:28] VITALS: BP 114/44
[2016-05-21 22:35] VITALS: BP 114/50
[2016-05-22 07:20] VITALS: BP 126/76
[2016-05-22 08:09] LABS: ABSOLUTE BASOPHIL COUNT 0 /CUMM (0.0-0.2); ABSOLUTE EOSINOPHIL COUNT 0.1 /CUMM (0.0-0.7); ABSOLUTE GRANULOCYTE CT 4.9 /CUMM (1.4-6.5); ABSOLUTE LYMPH COUNT 1.2 /CUMM (1.2-3.4); ABSOLUTE MONOCYTE COUNT 0.7 /CUMM (0.10-0.60); BASOPHIL % 0.6 % (0.0-2.0); EOSINOPHIL % 2.1 % (0-5); GRANULOCYTE % 69.7 % (42.2-75.2); HEMATOCRIT 34.7 % (37-47); MEAN CORPUSCULAR HGB 26.5 PG (27.0-31.0); MEAN CORPUSCULAR VOLUME 82.8 FL (81.0-99.0); MEAN PLATELET VOLUME 8.1 FL (7.4-10.4); PLATELET COUNT 243 /CUMM (130-400); RBC DISTRIBUTION WIDTH 16.5 % (11.5-14.5); WHITE BLOOD CELL COUNT 7.1 /CUMM (4.8-10.8)
--- NOTE | 2016-05-22 08:13 | PN- Housestaff ---
Subjective Follow-up For: LING Subjective: Patient is seen and examined at bedside. Does endorse constipation and reports that she has not had a bowel movement for about a week. Liver she does not endorse any other acute complaints including fever, chills, chest pain, palpitation, nausea, vomiting, dizziness abdominal pain or dysuria. No acute overnight event reported by nursing staff. Review of Systems Constitutional: Reports: no symptoms. Objective Last 24 Hrs of Vital Signs/I&O Vital Signs Date Time Temp Pulse Resp B/P Pulse O2 O2 Flow FiO2 Ox Delivery Rate 05/22 1433 98.7 85 20 124/56 93 Nasal 3.0L Cannula 05/22 0931 Nasal 2.0L Cannula 05/22 0800 Nasal 2.0L Cannula 05/22 0720 97.9 85 20 126/76 95 05/22 0058 98 Nasal 2.0L Cannula 05/22 0000 Nasal 2.0L Cannula 05/21 2235 98.2 87 18 114/50 91 Nasal 2.0L Cannula Intake & Output 05/22 1600 05/22 0800 05/22 0000 Intake Total 840 1000 Output Total 200 625 Balance 640 375 Intake, IV 600 600 Intake, Oral 240 400 Output, Urine 200 625 Physical Exam General Appearance: Alert, Oriented X3, Cooperative Assessment/Plan Assessment: Patient is 85-year-old woman from assisted living with past medical history significant for non-oxygen dependent COPD, hypertension, congestive heart failure, chronic back pain, history of PE in the past on anticoagulation, history of chronic rotator cuff tear, history of C. difficile and fecal implantation on the ED vancomycin came to the emergency room came with chief complaint of worsening weakness and not feeling well from couple of days and found to have hypoxic on admission along with supratherapeutic INR and elevated creatinine. Problem lists #Acute kidney injury -Resolving. Patient has 100% food intake with adequate fluid intake. Therefore stop normal saline hydration.Patient was encouraged to increase oral intake -Repeat BEP tomorrow -Continue to hold Lasix -Urinalysis showed WBC count more than 25, a symptomatic, urine culture grew multiple coloies suggestive for contamination, would hold off antibiotic patient denies any symptoms a #Supratherapeutic INR she is on Coumadin -INR today 5.85 will continue hold warfarin. No reported events of acute bleeding including melena, hematemesis, hemoptysis, BRPR, therefore at this INR level no reversal is indicated. -PT/INR tomorrow morning #history of C. difficile -We will continue home dose of vancomycin #history of hypertension -We will continue home medications #history of CHF -Continue to hold Lasix #history of hepatic insufficiency on hydrocortisone -Continue home medications #Disposition: Patient was scheduled to be evaluated by PT for discharge recommendation, however due to supratherapeutic INR PT sessions cannot begin. DVT prophylaxis warfarin on hold for supra therapeutic INR Heart healthy diet Patient is full code Problem List: 1. ARF Pain Ratin Pain Location: NONE Pain Goal: Remain pain free Pain Plan: PER PAIN PATHWAY Tomorrow's Labs & Rationales: inr-supratheraputic
[2016-05-22 08:30] LABS: PT 60.4 SEC (9.4-12.5)
--- NOTE | 2016-05-22 11:06 | PN- Att Addend ---
Attending Addendum Attending Brief Note Patient still not feeling well now her head is congested which is very constipated protocol in process. Vital signs are stable she's afebrile. Her BUN and creatinine are almost down to baseline. Her white count is okay, and her INR is still supratherapeutic to continue to hold the Coumadin today is a good therapy so the patient will continue the gentle hydration 1 more day. Hopefully bowel movement but is stable in a.m. then start disposition plans. Intake & Output 05/22 1600 05/22 0805/22 0000 05/21 1600 05/21 0000 Intake Total 840 1000 995 720 480 Output Total 200 625 400 Balance 640 375 595 720 480 Intake, IV 600 600 575 600 Intake, Oral 240 400 420 120 480 Output, Urine 200 625 400 Patient 167 lb Weight Current Medications Sig/Gricelda Start time Last Medication Dose Route Stop Time Status Admin Acetaminophen 650 MG Q6 PRN 05/20 1800 AC PO Alprazolam 0.25 MG BID PRN 05/20 2200 AC 05/21 PO 05/27 2159 2140 Budesonide/ 2 PUF BID 05/20 220 AC 05/22 Formoterol Fumarate INH 1031 Docusate Sodium 100 MG DAILY NEEDED PRN 05/21 1000 AC PO Duloxetine HCl 60 MG DAILY 05/20 184 AC 05/22 PO 1031 Famotidine 20 MG DAILY 05/20 184 AC 05/22 PO 1031 Gabapentin 300 MG BID 05/20 2200 AC 05/22 PO 1031 Guaifenesin 600 MG Q12 PRN 05/20 1900 AC PO Hydrocortisone 20 MG DAILY 05/21 1000 AC 05/22 PO 1031 Hydrocortisone 10 MG QPM 05/20 2200 AC 05/21 PO 2128 Lactobacillus 1 CAP DAILY 05/20 185 AC 05/22 Acidophilus PO 1031 Oxycodone HCl 10 MG BID 05/20 2200 AC 05/22 PO 1032 Polyethylene Glycol 17 GM DAILY 05/21 1000 AC 05/22 PO 1032 Senna 187 MG AT BEDTIME 05/21 220 AC 05/21 PO 2129 Sodium Chloride 1,000 ML Q13H 05/20 1900 AC 05/22 IV 1031 Vancomycin HCl 125 MG DAILY 05/21 1000 AC 05/22 PO 1039 Laboratory Tests 05/22/16 0648: Anion Gap 6, Estimated GFR 47 L, BUN/Creatinine Ratio 23.6, PT 60.4 *H, INR 5.85 *H, CBC w Diff NO MAN DIFF REQ, RBC 4.20, MCV 82.8, MCH 26.5 L, RDW 16.5 H, MPV 8.1, Gran % 69.7, Lymphocytes % 17.6 L, Monocytes % 10.0 H, Eosinophils % 2.1, Basophils % 0.6, Absolute Granulocytes 4.9, Absolute Lymphocytes 1.2, Absolute Monocytes 0.7 H, Absolute Eosinophils 0.1, Absolute Basophils 0, PUBS MCHC 32.0 L 05/21/16 0715: Anion Gap 4 L, Estimated GFR 25 L, BUN/Creatinine Ratio 18.9, PT 65.2 *H, INR 6.32 *H, CBC w Diff NO MAN DIFF REQ, RBC 4.49, MCV 82.0, MCH 26.4 L, RDW 16.9 H, MPV 8.0, Gran % 60.5, Lymphocytes % 24.7, Monocytes % 12.3 H, Eosinophils % 1.9, Basophils % 0.6, Absolute Granulocytes 3.5, Absolute Lymphocytes 1.4, Absolute Monocytes 0.7 H, Absolute Eosinophils 0.1, Absolute Basophils 0, PUBS MCHC 32.2 L 05/20/16 1725: Urinalysis LIGHT H, Urine Color YEL, Urine Clarity HAZY H, Urine pH 5.5, Ur Specific [place] 1.025, Urine Protein TRACE H, Urine Ketones TRACE H, Urine Nitrite NEG, Urine Bilirubin NEG, Urine Urobilinogen 0.2, Ur Leukocyte Esterase MOD H, Ur Microscopic SEDIMENT EXAMINED, Urine RBC RARE, Urine WBC 25-50 H, Ur Epithelial Cells FEW, Urine Bacteria FEW H, Hyaline Casts 3-5 H, Urine Mucus FEW, Urine Hemoglobin NEG, Urine Glucose NEG 05/20/16 1537: Anion Gap 8, Estimated GFR 25 L, BUN/Creatinine Ratio 19.5, Glucose 119 H, Calcium 9.3, Total Bilirubin 0.5, AST 31, ALT 34, Alkaline Phosphatase 49, Troponin I < 0.01, Tej-M-Nrsypwukntm Pept 152 H, Total Protein 6.3, Albumin 3.6 , Globulin 2.7, Albumin/Globulin Ratio 1.3, PT 62.3 *H, INR 6.04 *H, CBC w Diff NO MAN DIFF REQ, RBC 5.13, MCV 82.8, MCH 26.2 L, RDW 17.0 H, MPV 8.1, Gran % 61.2, Lymphocytes % 23.5, Monocytes % 11.3 H, Eosinophils % 3.2, Basophils % 0.8, Absolute Granulocytes 4.5, Absolute Lymphocytes 1.7, Absolute Monocytes 0.8 H, Absolute Eosinophils 0.2, Absolute Basophils 0.1, PUBS MCHC 31.7 L Microbiology 05/20 2209 BLOOD: Blood Culture - RES 05/20 221 BLOOD: Blood Culture - RES 05/20 183 STOOL: Clostridium difficile Toxin A & B - COLB 05/20 183 STOOL: Stool Culture - COLB 05/20 1725 URINE ROUT: Urine Culture - COMP
--- NOTE | 2016-05-22 13:57 | Discharge Summary ---
See Addendum Visit Information Visit Dates Admission Date: 05/20/16 Discharge Date: 05/24/16 Hospital Course Course Attending Physician: COSME DA SILVA,VAIBHAV Primary Care Physician: COSME DA SILVA,VAIBHAV [facility] Course: Patient is 85-year-old woman from assisted living with past medical history significant for non-oxygen dependent COPD, hypertension, congestive heart failure, chronic back pain, history of PE in the past on anticoagulation, history of chronic rotator cuff tear, history of C. difficile and fecal implantation on the ED vancomycin came to the emergency room came with chief complaint of worsening weakness and not feeling well from couple of days. Her vital signs on admission were temperature 99.0, pulse 92, respiratory rate 22, blood pressure 140/60 and she was saturating 86 on room air and later ON 3 L of oxygen she was saturating 98%. Labs on admission were WBC count 7.4, hemoglobin 13.5, hematocrit 42.5, platelet count 297, sodium 137, chloride 96, BUNs 37 and creatinine 1.9, PTT 62.3 and INR 6.04 Urinalysis showed trace proteins and trace ketones but no nitrates, leukocyte esterase is moderate with urine WBC of 25-50. Chest x-ray was negative for any pulmonary pathology Head CT was negative for any intracranial pathology Patient was admitted on the medical floor and following issues were addressed Problem #1 AK I most likely secondary to dehydration as she was vomiting recently and in adequate oral intake, we will rule out UTI -We treated patient conservatively with IV hydration and patient was progressively doing better. Remained afebrile with normal WBC count Problem #2 supratherapeutic INR she is on Coumadin -We held warfarin for her supratherapeutic INR and recheck INR daily till it became therapeutic and we will resume her warfarin on discharge Problem #3 history of C. difficile -We continued home dose of vancomycin Problem #4 history of hypertension -We continued home medications Problem #5 history of diastolic congestive heart failure with preserved ejection fraction -We held Lasix on admission due to acute kidney injury and we will resume it on discharge once creatinine came down to baseline Problem #6 history of hepatic insufficiency on hydrocortisone -Continued home medications Allergies: Coded Allergies: codeine (Severe, UNKNOWN PER PT 02/19/16) Uncoded Allergies: ALL ANTIBIOTICS (HAD FECAL TRANSPLANT 05/20/16) Pertinent Lab Results: SERVICE DATE: 05/20/16-1523 EXAM TYPE: CAT - CT HEAD WO IV CONTRAST EXAMINATION: CT HEAD WITHOUT CONTRAST CLINICAL INFORMATION: Headache on warfarin. COMPARISON: Head CT 11/16/2013. TECHNIQUE: Contiguous axial imaging was performed from the skull base to vertex without intravenous administration of contrast. DLP: 601 mGy-cm FINDINGS: There is no evidence of acute intracranial hemorrhage or territorial infarction. No abnormal mass effect or midline shift is seen. Tan to white matter differentiation is well preserved. No extra-axial fluid collections are identified. The ventricles and sulcal spaces are proportionate without hydrocephalus. There is no new abnormal attenuation within the brain parenchyma. There is periventricular, subcortical, and deep white matter hypoattenuation, which likely reflects sequela of ischemic microangiopathy. Basal ganglia calcifications. The osseous structures and soft tissues are unremarkable. The mastoid air cells and visualized portions of the paranasal sinuses are well aerated. IMPRESSION: No acute intracranial pathology. Chronic parenchymal changes as described above. Disposition Summary Disposition Principal Diagnosis: Weakness/deconditioning Additional Diagnosis: Supratherapeutic INR Discharge Disposition: home health services Discharge Instructions General Discharge Information Code Status: Full Code Patient's Diet: Heart healthy diet Patient's Activity: As tolerated with assistance Follow-Up Instructions/Appts: Please follow-up with your primary care physician in one week of discharge Please take medications as prescribed Medications at Discharge Discharge Medications: Continue taking these medications: Multivitamin (Multiple Vitamins) 1 EACH TABLET 1 Tablet ORAL DAILY Calcium Carbonate/Vitamin D3 (Calcium + Vitamin D Tablet) 600 MG-200 TABLET 1 Tablet ORAL TWICE DAILY Comments: NOT GIVEN IN HOSPITAL Famotidine (Famotidine) 20 MG TABLET 1 Tablet ORAL DAILY Comments: Last Taken:05/24/16 Time:9AM Fluticasone/Salmeterol (Advair 250-50 Diskus) 250 MCG-50 MCG/DOSE BLST.W.DEV 1 Puff Inhale through mouth TWICE DAILY Comments: NOT GIVEN IN HOSPITA; Valsartan (Diovan) 160 MG TABLET 1 Tablet ORAL DAILY Comments: NOT GIVEN IN HOSPITAL Gabapentin (Neurontin) 300 MG CAPSULE 1 Capsule ORAL TWICE DAILY Comments: Last Taken:05/24/16 Time:9AM Diclofenac Sodium (Voltaren) 1 % GEL..GRAM. 1 Gram On the skin 4 TIMES A DAY Instructions: apply to affected area(s) Comments: NOT GIVEN IN HOSPITAL Hydrocortisone (Cortef) 20 MG TABLET 1 Tablet ORAL DAILY Hydrocortisone (Cortef) 10 MG TABLET 1 Tablet ORAL Every night Comments: Last Taken:05/24/16 Time:9AM Lactobacillus Acidophilus (Acidophilus) 1 EACH CAPSULE 1 Capsule ORAL DAILY Comments: Last Taken:05/24/16 Time:9AM Alprazolam (Alprazolam) 0.25 MG TABLET 1 Tablet ORAL 2 x Daily as needed as needed for ANXIETY Comments: Last Taken:05/22/16 Time:11P Wheat Dextrin (Benefiber) 3 GRAM/3.8 GRAM POWDER 1 Tablespoonful ORAL DAILY Comments: NOT GIVEN IN HOSPITAL Furosemide (Lasix) 20 MG TABLET 1 Tablet ORAL DAILY Comments: NOT GIVEN IN HOSPITAL Thiamine HCl (Thiamine HCl) 100 MG TABLET 1 Tablet ORAL DAILY Comments: NOT GIVEN IN HOSPITAL Oxycodone HCl (Oxycontin) 10 MG TAB.ER.12H 10 Milligram ORAL TWICE DAILY Comments: Last Taken: 05/24/16 Time: 9 AM Vancomycin HCl (Vancocin HCl) 125 MG CAPSULE 125 Milligram ORAL DAILY Comments: Last Taken: 05/24/16 Time:9:00 AM Duloxetine HCl (Cymbalta) 60 MG CAPSULE.DR 1 Capsule ORAL DAILY Comments: Last Taken: 05/24/16 Time: 9:00 AM Guaifenesin (Guaifenesin ER) 600 MG TAB.ER.12H 600 Milligram ORAL EVERY 12 HOURS as needed for COUGH Days = 10 Comments: NO T GIVEN IN HOSPITAL Folic Acid (Folic Acid) 1 MG TABLET 1 Tablet ORAL DAILY Qty = 30 Comments: NOT GIVEN IN HOSPITAL Warfarin Sodium (Coumadin) 2 MG TABLET 2 Tablet ORAL 5 PM Days = 30 Instructions: PLEASE DO NOT GIVE UNITL INR IS CHECKED AND IS BELOW 3. Comments: Last Taken: 02/23/16 Time: 12 PM This prescription has been renewed Copies To: VAIBHAV AGUIAR MD Attending MD Review Statement Documenting Attending: VAIBHAV AGUIAR MD
[2016-05-22 14:33] VITALS: BP 124/56
[2016-05-22 22:20] VITALS: BP 122/70
[2016-05-23 06:15] VITALS: BP 140/74
--- NOTE | 2016-05-23 06:29 | PN- Housestaff ---
Subjective Follow-up For: LING Subjective: Pt is seen and examined at bedside. She does not endorse any acute complaints and was ablet undergo a PT session. No acute o/n event reported by nursing staff. Review of Systems Constitutional: Reports: no symptoms. Objective Last 24 Hrs of Vital Signs/I&O Vital Signs Date Time Temp Pulse Resp B/P Pulse O2 O2 Flow FiO2 Ox Delivery Rate 05/23 1357 98.4 87 20 152/92 94 Nasal 2.0L Cannula 05/23 0800 Nasal 2.0L Cannula 05/23 0615 98.5 80 17 140/74 95 Nasal 2.0L Cannula 05/23 0040 96 Nasal 2.0L Cannula 05/22 2220 98.2 66 20 122/70 96 Intake & Output 05/23 1600 05/23 0800 05/23 0000 Intake Total 1380 75 420 Output Total 475 300 Balance 905 75 120 Intake, IV 0 75 300 Intake, Oral 1380 120 Number 2 0 0 Bowel Movements Output, Urine 475 300 Physical Exam General Appearance: Alert, Oriented X3, Cooperative Skin: No Rashes, No Breakdown, No Significant Lesion HEENT: Atraumatic, PERRLA, EOMI Neck: Supple, No JVD, No thryomegaly Lymphatic: Cervical nl Cardiovascular: Regular Rate, Normal S1, Normal S2 Lungs: Clear to Auscultation, Normal Air Movement Abdomen: Normal Bowel Sounds, Soft, No Tenderness Neurological: Normal Tone, Sensation Intact Assessment/Plan Assessment: Patient is 85-year-old woman from assisted living with past medical history significant for non-oxygen dependent COPD, hypertension, congestive heart failure, chronic back pain, history of PE in the past on anticoagulation, history of chronic rotator cuff tear, history of C. difficile and fecal implantation on the ED vancomycin came to the emergency room came with chief complaint of worsening weakness and not feeling well from couple of days and found to have hypoxic on admission along with supratherapeutic INR and elevated creatinine. Problem lists #Acute kidney injury -Resolved. Patient has 100% food intake with adequate fluid intake. Therefore stop normal saline hydration.Patient was encouraged to increase oral intake -Repeat BEP tomorrow -Continue to hold Lasix #Supratherapeutic INR she is on Coumadin -INR today 3.72 will continue hold warfarin. No reported events of acute bleeding including melena, hematemesis, hemoptysis, BRPR, therefore at this INR level no reversal is indicated. -PT/INR tomorrow morning #history of C. difficile -We will continue home dose of vancomycin #history of hypertension -We will continue home medications #history of CHF -Continue to hold Lasix #history of hepatic insufficiency on hydrocortisone -Continue home medications #Disposition: PT underwent PT session with discharge reccomendation of Home PT. Given patient's age, and the fact that she is below baseline and will need PT, her supratheraputic INR is of concern as a fall will predispose her to increased bleeding risk. Therefore discharging today will be an unsafe discharge. Based on current INR trend, we are anticipating normalization of her INR, pt will be discharged tomorrow. DVT prophylaxis warfarin on hold for supra therapeutic INR Heart healthy diet Patient is full code Problem List: 1. ARF Pain Ratin Pain Location: none Pain Goal: Remain pain free Pain Plan: per pain pathway Tomorrow's Labs & Rationales: INR-supratheraputic BEP-ling
[2016-05-23 08:51] LABS: PT 38.6 SEC (9.4-12.5)
--- NOTE | 2016-05-23 13:32 | PN- Att Addend ---
Attending Addendum Attending Brief Note Patient still not feeling well patient has no fever and vital signs are stable, no major changes on physical, INR coming down into the threes urine in creatinine down to normal. We'll have PT evaluate the patient out of the INR is down and depending on results start disposition plans to either return to assisted living or needs short-term rehabilitation. Current Medications Sig/Gricelda Start time Last Medication Dose Route Stop Time Status Admin Acetaminophen 650 MG Q6 PRN 05/20 1800 AC PO Alprazolam 0.25 MG BID PRN 05/20 2200 AC 05/22 PO 05/27 2159 2309 Budesonide/ 2 PUF BID 05/20 220 AC 05/22 Formoterol Fumarate INH 2055 Docusate Sodium 100 MG DAILY NEEDED PRN 05/21 1000 AC PO Duloxetine HCl 60 MG DAILY 05/20 184 AC 05/23 PO 0946 Famotidine 20 MG DAILY 05/20 1849 AC 05/23 PO 0946 Gabapentin 300 MG BID 05/20 220 AC 05/23 PO 0946 Guaifenesin 600 MG Q12 PRN 05/20 1900 AC PO Hydrocortisone 20 MG DAILY 05/21 1000 AC 05/23 PO 0947 Hydrocortisone 10 MG QPM 05/20 2200 AC 05/22 PO 2054 Lactobacillus 1 CAP DAILY 05/20 1851 AC 05/23 Acidophilus PO 0946 Oxycodone HCl 10 MG BID 05/20 2199 AC 05/23 PO 0955 Patient Medication 1 ED .STK-MED ONE 05/22 1349 FL Teaching ED 05/22 1350 Polyethylene Glycol 17 GM DAILY 05/21 1000 AC 05/22 PO 1032 Senna 187 MG AT BEDTIME 05/21 2199 AC 05/22 PO 2053 Sodium Chloride 1,000 ML Q13H 05/20 1900 DC 05/22 IV 1031 Vancomycin HCl 125 MG DAILY 05/21 1000 AC 05/23 PO 0946 Laboratory Tests 05/23/16 0630: Anion Gap 3 L, Estimated GFR > 60, BUN/Creatinine Ratio 26.7 H, PT 38.6 H, INR 3.72 H Vital Signs Date Time Temp Pulse Resp B/P Pulse O2 O2 Flow FiO2 Ox Delivery Rate 05/23 0615 98.5 80 17 140/74 95 Nasal 2.0L Cannula Intake & Output 05/23 1600 Intake Total Output Total 200 Balance -200 Number 1 Bowel Movements Output, Urine 200
[2016-05-23 13:57] VITALS: BP 152/92
--- NOTE | 2016-05-23 15:33 | Patient Discharge Instructions ---
Discharge Instructions General Discharge Information You were seen/treated for: Acute Kidney Injury High INR Special Instructions: Please contact your Primary care doctor within 1 week Your INR has now normalized, restart taking your coumadin tonight as per your regular schedule. Please make sure you get your scheduled INR test on Sunday (05/24) from your normal nursing services Diet Continue normal diet: Yes Activity Full Activity/No Limits: Yes Acute Coronary Syndrome Inclusion Criteria At DC or during hospital stay patient has or had the following: ACS DIAGNOSIS No Discharge Core Measures Meds if any: Prescribed or Continued at Discharge Meds if any: NOT Prescribed or Continued at Discharge Congestive Heart Failure Inclusion Criteria At DC or during hospital stay patient has or had the following: CHF DIAGNOSIS No Discharge Core Measures Meds if any: Prescribed or Continued at Discharge Meds if any: NOT Prescribed or Continued at Discharge Cerebrovascular accident Inclusion Criteria At DC or during hospital stay patient has or had the following: CVA/TIA Diagnosis No Discharge Core Measures Meds if any: Prescribed or Continued at Discharge Meds if any: NOT Prescribed or Continued at Discharge Venous thromboembolism Inclusion Criteria VTE Diagnosis No VTE Type NONE VTE Confirmed by (Test) NONE Discharge Core Measures - Per Current guidelines, there needs to be overlap - treatment for the first 5 days of Warfarin therapy. - If discharged on Warfarin prior to 5 days of - overlap therapy, the patient will need to be - assessed for post discharge needs including - *Post discharge parental anticoagulation - *Warfarin and/or parental anticoagulation education - *Follow up date to check INR post discharge At least 5 days overlap therapy as Inpatient No Meds if any: Prescribed or Continued at Discharge Note: Overlap Therapy is Warfarin and Anticoagulant Meds if any: NOT Prescribed or Continued at Discharge
[2016-05-23] MEDS ORDERED: COUMADIN2 M1 PO (15:35)
[2016-05-23 21:59] VITALS: BP 128/64
[2016-05-24 06:26] VITALS: BP 160/86
--- NOTE | 2016-05-24 08:14 | PN- Housestaff ---
Subjective Follow-up For: LING Subjective: Patient is seen and examined at bedside. Patient is very upbeat and eager for discharge. She does not endorse any complaints including fever, chills, nausea, vomiting, palpitation, chest pain, dizziness, abdominal pain or dysuria. No Acute overnight event reported by nursing staff. Review of Systems Constitutional: Reports: no symptoms. Objective Last 24 Hrs of Vital Signs/I&O Vital Signs Date Time Temp Pulse Resp B/P Pulse O2 O2 Flow FiO2 Ox Delivery Rate 05/24 625 97.5 74 20 160/86 92 Room Air 05/23 215 99.0 69 20 128/64 96 Room Air 05/23 1600 Room Air 05/23 1357 98.4 87 20 152/92 94 Nasal 2.0L Cannula Intake & Output 05/24 0800 05/24 0000 Intake Total 200 Output Total 200 200 Balance -200 0 Intake, Oral 200 Number 1 Bowel Movements Output, Urine 200 200 Physical Exam General Appearance: Alert, Oriented X3, Cooperative Skin: No Significant Lesion Cardiovascular: Regular Rate, Normal S1, Normal S2, No Murmurs Lungs: Clear to Auscultation, Normal Air Movement Abdomen: Normal Bowel Sounds, Soft, No Tenderness, No Hepatospenomegaly Neurological: Normal Speech Current Medications: Current Medications Sig/Gricelda Start time Last Medication Dose Route Stop Time Status Admin Acetaminophen 650 MG Q6 PRN 05/20 1800 AC PO Alprazolam 0.25 MG BID PRN 05/200 AC 05/22 PO 05/27 2159 2309 Budesonide/ 2 PUF BID 05/20 2199 AC 05/24 Formoterol Fumarate INH 0922 Docusate Sodium 100 MG DAILY NEEDED PRN 05/21 1000 AC PO Duloxetine HCl 60 MG DAILY 05/20 1849 AC 05/24 PO 0913 Famotidine 20 MG DAILY 05/20 1849 AC 05/24 PO 0913 Gabapentin 300 MG BID 05/20 220 AC 05/24 PO 0913 Guaifenesin 600 MG Q12 PRN 05/20 1900 AC 05/24 PO 0913 Hydrocortisone 20 MG DAILY 05/21 1000 AC 05/24 PO 0913 Hydrocortisone 10 MG QPM 05/20 2200 AC 05/23 PO 2101 Lactobacillus 1 CAP DAILY 05/20 1851 AC 05/24 Acidophilus PO 09 Oxycodone HCl 10 MG BID 05/20 2199 AC 05/24 PO 0914 Polyethylene Glycol 17 GM DAILY 05/21 1000 AC 05/24 PO 0914 Senna 187 MG AT BEDTIME 05/21 2199 AC 05/23 PO 2100 Vancomycin HCl 125 MG DAILY 05/21 1000 AC 05/24 PO 0918 Last 24 Hrs of Lab/Javier Results Last 24 Hrs of Labs/Mics: Laboratory Tests 05/24/16 0650: PT 22.6 H, INR 2.17 H Assessment/Plan Assessment: Patient is 85-year-old woman from assisted living with past medical history significant for non-oxygen dependent COPD, hypertension, congestive heart failure, chronic back pain, history of PE in the past on anticoagulation, history of chronic rotator cuff tear, history of C. difficile and fecal implantation on the ED vancomycin came to the emergency room came with chief complaint of worsening weakness and not feeling well from couple of days and found to have hypoxic on admission along with supratherapeutic INR and elevated creatinine. Problem lists #Acute kidney injury -Resolved most likely secondary to dehydration. -We'll restart patient on all her home medical. #Supratherapeutic INR she is on Coumadin -INR normalized and is at goal today. Patient takes Coumadin at bedtime and therefore is instructed which she goes home today to restart taking Coumadin. She does report periodic INR checkups that are facilitated by visiting nurse and she scheduled to have one on Sunday. #history of C. difficile -We will continue home dose of vancomycin #history of hypertension -We will continue home medications #history of CHF -Continue to hold Lasix #history of hepatic insufficiency on hydrocortisone -Continue home medications #Disposition: Patient is stable for discharge today and INR has normalized. DVT prophylaxis warfarin on hold for supra therapeutic INR Heart healthy diet Patient is full code Problem List: 1. ARF Pain Ratin Pain Location: none Pain Goal: Pain 4 or less Pain Plan: per pain pathway Tomorrow's Labs & Rationales: none-discharge
[2016-05-24 08:20] LABS: PT 22.6 SEC (9.4-12.5)
--- NOTE | 2016-05-24 14:24 | PN- Att Addend ---
Attending Addendum Attending Brief Note Feeling a little better with vital signs are stable no fever with her INR is now therapeutic, we'll get patient out of bed have PT evaluate her and hopefully she will be able to go back to her assisted living later on today and see CMR and W 10. Current Medications Sig/Gricelda Start time Last Medication Dose Route Stop Time Status Admin Acetaminophen 650 MG Q6 PRN 05/20 1800 AC PO Alprazolam 0.25 MG BID PRN 05/20 2200 AC 05/22 PO 05/27 2159 2309 Budesonide/ 2 PUF BID 05/20 220 AC 05/24 Formoterol Fumarate INH 0922 Docusate Sodium 100 MG DAILY NEEDED PRN 05/21 1000 AC PO Duloxetine HCl 60 MG DAILY 05/20 184 AC 05/24 PO 0913 Famotidine 20 MG DAILY 05/20 184 AC 05/24 PO 0913 Gabapentin 300 MG BID 05/20 2200 AC 05/24 PO 0913 Guaifenesin 600 MG Q12 PRN 05/20 1900 AC 05/24 PO 0913 Hydrocortisone 20 MG DAILY 05/21 1000 AC 05/24 PO 0913 Hydrocortisone 10 MG QPM 05/20 2200 AC 05/23 PO 2101 Lactobacillus 1 CAP DAILY 05/20 1851 AC 05/24 Acidophilus PO 0913 Oxycodone HCl 10 MG BID 05/20 220 AC 05/24 PO 0914 Patient Medication 1 ED .STK-MED ONE 05/[address] Teaching ED 05/24 1317 Polyethylene Glycol 17 GM DAILY 05/21 1000 AC 05/24 PO 0914 Senna 187 MG AT BEDTIME 05/21 220 AC 05/23 PO 2100 Vancomycin HCl 125 MG DAILY 05/21 1000 AC 05/24 PO 0918 Laboratory Tests 05/24/16 0650: PT 22.6 H, INR 2.17 H 05/23/16 0630: Anion Gap 3 L, Estimated GFR > 60, BUN/Creatinine Ratio 26.7 H, PT 38.6 H, INR 3.72 H Vital Signs Date Time Temp Pulse Resp B/P Pulse O2 O2 Flow FiO2 Ox Delivery Rate 05/24 625 97.5 74 20 160/86 92 Room Air 05/23 2158 99.0 69 20 128/64 96 Room Air 05/23 1600 Room Air Intake & Output 05/24 1600 04/05 0800 04/05 0000 Intake Total 800 200 Output Total 200 200 Balance 800 -200 0 Intake, IV 0 Intake, Oral 800 200 Number 1 1 Bowel Movements Output, Urine 200 200 Order Coumadin for today
== END 2016-05-24 14:26 | disposition home health service (06) | DRG 683 ==
LOC: ENRESERVTM → ENRESERV → CANRESERV → ENRESERVDT → ERH 15:03 → 2NB 17:18 → ERHI 17:18 → ENPENDDIS 17:18 → 2NB 19:14
PROVIDERS: Emergency Medicine; Internal Medicine; Student in an Organized Health Care Education/Training Program; ADMIT Internal Medicine
DX: N17.9 Acute kidney failure, unspecified (principal); I50.32 Chronic diastolic (congestive) heart failure; J44.9 Chronic obstructive pulmonary disease, unspecified; I11.0 Hypertensive heart disease with heart failure; E86.0 Dehydration; K72.90 Hepatic failure, unspecified without coma; G89.29 Other chronic pain; M54.9 Dorsalgia, unspecified; Z86.711 Personal history of pulmonary embolism
CPT/HCPCS: 2NBP; 36415; 81001; 82436; 87040; 87045; 87086; 93005; 93010; 96374; 96375; 97110-GO; 97116-GO; 97161-GP; 97530-GO; J2405; J3490; J7040

== ENCOUNTER 2017-03-31 11:03 | Inpatient (IN) | payer OTHER, MEDICARE ==
[~2017-03-31] VITALS: Ht 160 cm; Wt 78.0 kg
[~2017-03-31 11:03] MED LIST changes: +FOLIC ACID1 M1 PO
--- NOTE | 2017-03-31 11:13 | ED GI/GU/ABDOMINAL COMPLAINT ---
History of Present Illness General Chief Complaint: Nausea, Vomiting, Diarrhea Stated Complaint: DIARRHEA X 3 DAYS Source: patient, family, old records Exam Limitations: no limitations Vital Signs & Intake/Output Vital Signs & Intake/Output Vital Signs Date Time Temp Pulse Resp B/P B/P Pulse O2 O2 Flow FiO2 Mean Ox Delivery Rate 04/04 0807 164/88 04/04 0614 97.8 73 20 178/76 94 04/04 0549 178/70 04/03 2158 97.9 68 20 128/70 96 Room Air 04/03 1600 96 Room Air 04/03 1428 97 Room Air Room Air 04/03 1353 97.7 68 20 122/70 96 Room Air ED Intake and Output 04/04 0000 04/03 1200 Intake Total 640 1400 Output Total 150 850 Balance 490 550 Intake, IV 140 900 Intake, Oral 500 500 Number 2 1 Bowel Movements Output, Urine 150 850 Patient 78.018 kg Weight Allergies Coded Allergies: codeine (Severe, UNKNOWN PER PT 02/19/16) Uncoded Allergies: ALL ANTIBIOTICS (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 1 GM TOP 4 TIMES/DAY HAND PAIN ( Reported) apply to affected area(s) Duloxetine HCl (Cymbalta) 60 MG CAPSULE.DR 1 CAP PO DAILY PAIN AND DEPRESSION (Reported) Famotidine 20 MG TABLET 1 TAB PO DAILY GASTRITIS (Reported) Fluticasone/Salmeterol (Advair 250-50 Diskus) 250 MCG-50 MCG/DOSE BLST.W.DEV 1 PUF INH BID COPD (Reported) Folic Acid 1 MG TABLET 1 TAB PO DAILY SUPPLEMENT (Reported) Furosemide (Lasix) 20 MG TABLET 1 TAB PO DAILY heart (Reported) Gabapentin (Neurontin) 300 MG CAPSULE 1 CAP PO BID NEUROPATHY (Reported) Guaifenesin (Mucinex) 600 MG TAB.ER.12H 1 TAB PO BID PRN MUCUS (Reported) Hydrocortisone (Cortef) 20 MG TABLET 1 TAB PO QAM ADRENAL INSUFFICIENCY ( Reported) Hydrocortisone (Cortef) 10 MG TABLET 1 TAB PO QHS ADRENAL INSUFFIIENTY ( Reported) Lactobacillus Acidophilus (Acidophilus) 1 EACH CAPSULE 1 CAP PO DAILY GI ( Reported) Multivitamin (Multiple Vitamins) 1 EACH TABLET 1 TAB PO DAILY SUPPLEMENT ( Reported) Oxycodone HCl (Oxycontin) 10 MG TAB.ER.12H 10 MG PO BID PAIN (Reported) Thiamine HCl 100 MG TABLET 1 TAB PO DAILY SUPPLEMENT (Reported) Valsartan (Diovan) 160 MG TABLET 1 TAB PO DAILY BP (Reported) Vancomycin HCl (Vancocin HCl) 125 MG CAPSULE 125 MG PO DAILY C DIFFICLE ( Reported) Warfarin Sodium (Coumadin) 2 MG TABLET 2 TAB PO 1700 BLOOD THINNER PLEASE DO NOT GIVE UNITL INR IS CHECKED AND IS BELOW 3. Wheat Dextrin (Benefiber) (Unknown Strength) POWDER 1 TBSP PO DAILY CONSTIPATION (Reported) Triage Nurses Notes Reviewed? yes ? n Is pt currently ? No HPI: 86F PMH non-oxygen dependent COPD, hypertension, congestive heart failure, chronic back pain, history of PE, recurrent C.diff colitis s/p fecal transplant x2, presenting with 3 days of abdominal cramping, nausea, and multiple episodes of loose stools. No recent sick contacts or travel. Denies fever, chills, chest pain, SOB, dysuria. No recent antibiotics. Feels dehydrated and weak. Past History Medical History Any Pertinent Medical History? see below for history Neurological: CVA EENT: NONE Cardiovascular: CHF, hypertension, hyperlipidemia, Endocarditis Respiratory: COPD (on 2 L oxygen at home) Gastrointestinal: diverticulitis, RECURRENT c. 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 Hx Contributory? No Review of Systems Review of Systems Constitutional: Reports: no symptoms. EENTM: Reports: no symptoms. Respiratory: Reports: no symptoms. Cardiovascular: Reports: no symptoms. GI: Reports: no symptoms. Genitourinary: Reports: no symptoms. Musculoskeletal: Reports: no symptoms. Skin: Reports: no symptoms. Neurological/Psychological: Reports: no symptoms. Hematologic/Endocrine: Reports: no symptoms. Immunologic/Allergic: Reports: no symptoms. All Other Systems: Reviewed and Negative Physical Exam Physical Exam General Appearance: well developed/nourished, mild distress Head: atraumatic, normal appearance Eyes: Bilateral: normal appearance, normal inspection. Ears, Nose, Throat, Mouth: hearing grossly normal, dry MM Neck: normal inspection, supple, full range of motion Respiratory: normal breath sounds, chest non-tender, no respiratory distress Cardiovascular: regular rate/rhythm Gastrointestinal: soft, LLQ tenderness Back: normal inspection, normal range of motion Extremities: normal range of motion Neurologic/Psych: awake, alert, oriented x 3, normal mood/affect Skin: intact, normal color, warm/dry Core Measures ACS in differential dx? No Sepsis Present: No Sepsis Focused Exam Completed? No Progress Differential Diagnosis: AAA, AMI, appendicitis, biliary colic, bowel obstruction , colon cancer, cholecystitis, diverticulitis, ectopic , endometritis, esophageal varices, gastritis, hepatitis, hernia, hemorrhoids, ischemic bowel, inflamm bowel dis, intrauterine , kidney stone, Ella-Aaron tear, ovarian cyst, ovarian torsion, pancreatitis, PID/cervicitis, peptic ulcer, PUD/ GERD, perforated viscous, SBO, threatened AB, UTI/pyelo Plan of Care: Orders Procedure Date/time Status PROTHROMBIN TIME 04/05 0600 Active BASIC ELECTROLYTES PLUS BUN&CR 04/05 0600 Active Heart Healthy Diet 04/04 D Active PROTHROMBIN TIME 04/04 0600 Complete Full Liquid Diet 04/03 D Complete MISSING MEDICATION FORM 04/03 UNK Active Current Medications Sig/Gricelda Start time Last Medication Dose Stop Time Status Admin Potassium Chloride 20 MEQ DAILY 04/05 1000 UNVr (Klor) Warfarin Sodium 2 MG COUMADIN 1700 ONE 04/04 1700 UNVr (Coumadin) 04/04 1701 Furosemide 20 MG DAILY 04/04 1117 UNVr (Lasix) Hydrocortisone 10 MG 1600 04/03 1600 AC 04/03 (Hydrocortisone) 1557 Hydrocortisone 20 MG 0800 04/03 0800 AC 04/04 (Hydrocortisone) 0855 Albuterol Sulfate 3 ML Q4P PRN 04/02 2145 AC (Proventil) Metronidazole 500 MG IQ8 04/01 1600 AC 04/04 (Flagyl) 0855 N/A 1 UNIT (No Carrier) Duloxetine HCl 60 MG DAILY 04/01 1000 AC 04/04 (Cymbalta) 0855 Famotidine 20 MG DAILY 04/01 1000 AC 04/04 (Pepcid) 0856 Lactobacillus 1 CAP DAILY 04/01 1000 AC 04/04 Acidophilus 0855 (Probiotic) Thiamine HCl 100 MG DAILY 04/01 1000 AC 04/04 (Vitamin B1) 0855 Ceftriaxone Sodium 1,000 MG 0100 04/01 0100 AC 04/04 (Rocephin) 0001 Vancomycin HCl 125 MG Q6 03/31 2359 AC 04/04 0525 Alprazolam 0.25 MG BID PRN 03/31 2200 AC 04/03 (Xanax) 04/07 2159 2053 Budesonide/ 2 PUF BID 03/31 220 AC 03/31 Formoterol Fumarate 2146 (Symbicort) Diclofenac Sodium 1 ROBERTO 4 TIMES/DAY 03/31 220 AC (Voltaren 1% Gel) Gabapentin 300 MG BID 03/31 2200 AC 04/04 (Neurontin) 0855 Guaifenesin 600 MG BID PRN 03/31 1815 AC (Mucinex) Losartan Potassium 50 MG DAILY 03/31 1807 AC 04/04 (Cozaar) 0549 Laboratory Tests 04/04/17 0655: PT 27.0 H, INR 2.60 H Initial ED EKG: none Departure Departure Disposition: STILL A PATIENT Condition: Stable Clinical Impression Primary Impression: Acute diverticulitis Referrals: Timo Quiroga MD (PCP/Family) Departure Forms: Customer Survey General Discharge Information Admission Note Spoke With: Tera Lr MD Documentation of Exam: Documentation of any treatments & extenuating circumstances including Concerns Regarding Discharge (functional status, medication knowledge or non-compliance, living conditions, etc.) that warrant an admission rather than observation: ACUTE DIVERTICULITIS UNABLE TO TOLERATE PO WITH DEHYDRATION AND WEAKNESS, HISTORY OF C.DIFF WITH FECAL TRANSPLANT, WILL ADMIT TO MEDICINE FOR IV HYDRATION , INFECTIOUS DISEASE AND GI CONSULTS FOR MANAGING DIVERTICULTIIS IN THE SETTING OF RECURRENT C.DIFF, WILL REQUIRE MULTIPLE DAY STAY
[2017-03-31 12:29] LABS: ABSOLUTE BASOPHIL COUNT 0 /CUMM (0.0-0.2); ABSOLUTE EOSINOPHIL COUNT 0.2 /CUMM (0.0-0.7); ABSOLUTE GRANULOCYTE CT 4.6 /CUMM (1.4-6.5); ABSOLUTE MONOCYTE COUNT 0.9 /CUMM (0.10-0.60); BASOPHIL % 0.3 % (0.0-2.0); EOSINOPHIL % 3.1 % (0-5); GRANULOCYTE % 68.7 % (42.2-75.2); HEMATOCRIT 45.9 % (37-47); MEAN CORPUSCULAR HGB 26.6 PG (27.0-31.0); MEAN CORPUSCULAR HGB CONC 31.9 G/DL (33.0-37.0); MEAN CORPUSCULAR VOLUME 83.4 FL (81.0-99.0); PLATELET COUNT 270 /CUMM (130-400); RBC DISTRIBUTION WIDTH 16.3 % (11.5-14.5); WHITE BLOOD CELL COUNT 6.8 /CUMM (4.8-10.8)
--- NOTE | 2017-03-31 14:12 | CT SCAN REPORT ---
EXAMINATION: CT ABDOMEN AND PELVIS WITH CONTRAST CLINICAL INFORMATION: Left lower quadrant pain with diarrhea. Concern for colitis/diverticulitis. COMPARISON: CT abdomen/pelvis 05/28/2015. TECHNIQUE: Multidetector volumetric imaging was performed of the abdomen and pelvis following IV administration of 90 mL of Optiray 320 intravenous contrast. Sagittal and coronal reformatted images were obtained on the technologist's workstation. DLP: 522.34 mGy-cm FINDINGS: LUNG BASES: The visualized lung bases are unremarkable. LIVER, GALLBLADDER, AND BILIARY TREE: The liver is normal in size, shape, and attenuation. No focal hepatic lesion or biliary ductal dilatation is present. Cholelithiasis without evidence of cholecystitis. Common bile duct is normal. PANCREAS: Unremarkable. SPLEEN: Small hypodensities in the spleen are unchanged. ADRENAL GLANDS: Stable coarse calcifications in both adrenal glands. KIDNEYS AND URETERS: Stable appearance of both kidneys with multiple cysts in the lower pole left kidney. No renal calculi or hydronephrosis. No perinephric stranding. BLADDER: Partially collapsed, limiting evaluation. GASTROINTESTINAL TRACT: Moderate-sized hiatal hernia. Diverticulosis of the colon with a small amount of pericolonic inflammatory stranding surrounding the distal aspect of the sigmoid colon near the junction of the rectum and sigmoid colon. No pericolonic abscess or free fluid. Small duodenal diverticulum. The small and large bowel are otherwise unremarkable. The appendix is unremarkable. ABDOMINAL WALL: Stable fat-containing umbilical hernia with a wide neck. Stable fat-containing right inguinal hernia with a small amount of fluid. LYMPH NODES: Normal. VASCULAR: Atherosclerotic changes of the abdominal aorta and its branches. PELVIC VISCERA: The uterus is unremarkable. The ovaries are nonvisualized, likely atrophic. OSSEOUS STRUCTURES: Stable degenerative changes of the spine with mild compressive deformities of T12 and L1 remaining unchanged. IMPRESSION: Acute, uncomplicated diverticulitis of the sigmoid colon. Chronic findings, as above.
[2017-03-31] MEDS ORDERED: MUCINEX600 M1 PO (15:46)
--- NOTE | 2017-03-31 16:06 | History & Physical ---
Landon DA SILVA,[facility] 03/31/17 1605: General Information and HPI MD Statement: I have seen and personally examined ELIEZER GARCIA and documented this H&P. The patient is a 86 year old F who presented with a patient stated chief complaint of [2 days of diarrhea and generalize fatigue]. Source of Information: patient, old records Exam Limitations: no limitations History of Present Illness: 85-year-old woman from assisted living with past medical history significant for non-oxygen dependent COPD, hypertension, congestive heart failure, chronic back pain, history of PE in the past on anticoagulation, history of chronic rotator cuff tear, history of C. difficile and fecal implantation on the ED vancomycin came to the emergency room came with chief complaint of 2 days of diarrhea and generalize weakness. The patient reported that 2 days ago she started to complain of abdominal pain, nausea, and multiple episodes of nonbloody loose stool. The patient denies sick contacts or travel. Denies fever, chills, chest pain, SOB, dysuria. No recent antibiotics. Allergies/Medications Allergies: Coded Allergies: codeine (Severe, UNKNOWN PER PT 02/19/16) Uncoded Allergies: ALL ANTIBIOTICS (HAD FECAL TRANSPLANT 05/20/16) Home Med list Alprazolam 0.25 MG TABLET 1 TAB PO BIDP PRN ANXIETY (Reported) Calcium Carbonate/Vitamin D3 (Calcium + Vitamin D Tablet) 600 MG-200 TABLET 1 TAB PO BID SUPPLEMENT (Reported) Diclofenac Sodium (Voltaren) 1 % GEL..GRAM. 1 GM TOP 4 TIMES/DAY HAND PAIN ( Reported) apply to affected area(s) Duloxetine HCl (Cymbalta) 60 MG CAPSULE.DR 1 CAP PO DAILY PAIN AND DEPRESSION (Reported) Famotidine 20 MG TABLET 1 TAB PO DAILY GASTRITIS (Reported) Fluticasone/Salmeterol (Advair 250-50 Diskus) 250 MCG-50 MCG/DOSE BLST.W.DEV 1 PUF INH BID COPD (Reported) Folic Acid 1 MG TABLET 1 TAB PO DAILY SUPPLEMENT (Reported) Furosemide (Lasix) 20 MG TABLET 1 TAB PO DAILY heart (Reported) Gabapentin (Neurontin) 300 MG CAPSULE 1 CAP PO BID NEUROPATHY (Reported) Guaifenesin (Mucinex) 600 MG TAB.ER.12H 1 TAB PO BID PRN MUCUS (Reported) Hydrocortisone (Cortef) 20 MG TABLET 1 TAB PO QAM ADRENAL INSUFFICIENCY ( Reported) Hydrocortisone (Cortef) 10 MG TABLET 1 TAB PO QHS ADRENAL INSUFFIIENTY ( Reported) Lactobacillus Acidophilus (Acidophilus) 1 EACH CAPSULE 1 CAP PO DAILY GI ( Reported) Multivitamin (Multiple Vitamins) 1 EACH TABLET 1 TAB PO DAILY SUPPLEMENT ( Reported) Oxycodone HCl (Oxycontin) 10 MG TAB.ER.12H 10 MG PO BID PAIN (Reported) Thiamine HCl 100 MG TABLET 1 TAB PO DAILY SUPPLEMENT (Reported) Valsartan (Diovan) 160 MG TABLET 1 TAB PO DAILY BP (Reported) Vancomycin HCl (Vancocin HCl) 125 MG CAPSULE 125 MG PO DAILY C DIFFICLE ( Reported) Warfarin Sodium (Coumadin) 2 MG TABLET 2 TAB PO 1700 BLOOD THINNER PLEASE DO NOT GIVE UNITL INR IS CHECKED AND IS BELOW 3. Wheat Dextrin (Benefiber) (Unknown Strength) POWDER 1 TBSP PO DAILY CONSTIPATION (Reported) Past History Travel History Traveled to [place] past 21 day No Medical History Neurological: CVA EENT: NONE Cardiovascular: CHF, hypertension, hyperlipidemia, Endocarditis Respiratory: COPD (on 2 L oxygen at home) Gastrointestinal: diverticulitis, RECURRENT c. 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 Psychosocial History Services at Home: Home Health Aide, Nursing Functional Ability ADLs Independent: dressing, eating, toileting, bathing. Ambulation: walker Review of Systems Review of Systems Constitutional: Reports: see HPI. Exam & Diagnostic Data Last 24 Hrs of Vital Signs/I&O Vital Signs Date Time Temp Pulse Resp B/P B/P Pulse O2 O2 Flow FiO2 Mean Ox Delivery Rate 03/31 1855 88 180/100 03/31 1814 98.0 88 19 180/100 94 Room Air 03/31 1739 97.3 88 18 186/82 96 Room Air 03/31 1403 97.2 84 18 166/82 97 Room Air 03/31 1259 98.3 88 18 185/94 95 Room Air 03/31 1111 98.1 84 20 163/81 95 Room Air Intake & Output 03/31 1600 03/31 0800 03/31 0000 Intake Total 0 Output Total 0 Balance 0 Intake, Oral 0 Output, Urine 0 Patient 78.471 kg Weight Physical Exam General Appearance Alert, Oriented X3, Cooperative, No Acute Distress Skin No Rashes Skin Temp/Moisture Exam: Cool/Dry HEENT Atraumatic, PERRLA, EOMI, dry Neck No JVD Cardiovascular Regular Rate, Normal S1, Normal S2 Lungs decrease air-entry over lung base b/l Abdomen Soft, LUQ and LLQ tenderness Neurological Normal Speech Extremities No Clubbing, No Cyanosis, No Edema Last 24 Hrs of Labs/Javier: Laboratory Tests 03/31/17 1835: PT 35.0 H, INR 3.37 H 03/31/17 1205: Anion Gap 15, Estimated GFR > 60, BUN/Creatinine Ratio 18.6, Glucose 73, Calcium 8.9, Total Bilirubin 0.6, AST 43 H, ALT 24, Alkaline Phosphatase 62, Total Protein 6.7, Albumin 3.9, Globulin 2.8, Albumin/Globulin Ratio 1.4, CBC w Diff NO MAN DIFF REQ, RBC 5.50 H, MCV 83.4, MCH 26.6 L, MCHC 31.9 L, RDW 16.3 H, MPV 8.0, Gran % 68.7, Lymphocytes % 15.3 L, Monocytes % 12.6 H, Eosinophils % 3.1, Basophils % 0.3, Absolute Granulocytes 4.6, Absolute Lymphocytes 1.0 L, Absolute Monocytes 0.9 H, Absolute Eosinophils 0.2, Absolute Basophils 0 Microbiology 03/31 1458 STOOL: Clostridium difficile Toxin A & B - RECD 03/31 145 STOOL: Stool Culture - RECD Assessment/Plan Assessment: This is a 86-year-old female with extensive past medical history including 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 The patient was instructed to be careful with antibiotic post fecal transplant. Patient presented now with [address] of diarrhea and CT abdomen findings are highly suggestive of diverticulitis. She was found to be also dehydrated and weak. Patient is now on Coumadin for history of pulmonary embolism her INR was supratherapeutic. She was also found to be hypertensive on the emergency room. Patient has a history of [place] disease for which she is on hydrocortisone 20 mg in the morning and 10 mg at night. I spoke to radiology over the phone to make to confirm that this patient has diverticulitis not ischemic colitis, as a try to avoid antibiotic. Radiology confirmed that this is most likely diverticulitis. Plan * She will be admitted to the general medicine floor * We will start IV fluid for rehydration * She will be nothing by mouth bowel rest * We will order lactic acid * we will start pt on IV ceftriaxone after given home does of oral vanco(agreed with the patient GI doctor over the phone) * We will give stress dose of hydrocortisone 50 mg IV today, and start patient on 25 mg IV twice a day tomorrow(as per endocrinology) * Hold Coumadin given supratherapeutic INR, repeat INR in am. * Continue the rest of home medication including antihypertensive medication and oral vancomycin * We will follow endocrinology recommendation in regard of management of Pedro disease Nothing by mouth DVT prophylaxis with Alps, holding Coumadin for now given supratherapeutic INR Full code As Ranked By This Provider Problem List: 1. [place]'s disease 2. COPD exacerbation Core Measures/Misc (11/05) Acute Coronary Syndrome ACS Diagnosis: No Congestive Heart Failure Congestive Heart Failure Diagnosis Yes Cerebrovascular Accident CVA/TIA Diagnosis: No VTE (View Protocol) VTE Risk Factors Age>40 No Mechanical VTE Prophylaxis d/t N/A MechProphylax Ordered No VTE Pharm Prophylaxis d/t NA PharmProphylax ordered Sepsis (View protocol) Sepsis Present: No Tera Lr MD 04/01/17 1421: Attending MD Review Statement Attending Statement Attending MD Statement: examined this patient, discuss w/resident/PA/INSTRUCTIONAL RESOURCE TEACHER, agreed w/resident/PA/INSTRUCTIONAL RESOURCE TEACHER, reviewed images, amended to note Attending Assessment/Plan: Mrs. Garcia was interviewed and examined. Her EMR was reviewed. 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 difficile, stool cultures -NPO except meds, IV fluids -Continue oral vancomycin -Ceftriaxone and metronidazole as per patient's sap crm developer -Stress dose steroids -TRC, nebs -Continue maintenance medications
[2017-03-31 18:14] VITALS: BP 180/100
[2017-03-31 21:49] VITALS: BP 160/90
--- NOTE | 2017-03-31 22:07 | Event Note ---
Event Note Event Note: GOT IN TOUCH WITH GI DOCTOR BY DR. OLGUIN, WILL START CEFTRIAXONE TO BE GIVEN AFTER VANCOMYCIN DOSE. MEDICATION WAS ORDERED, SPOKE WITH THE NURSE AND PHARMACYSIT REGARDING THE PLAN THAT ALSO WAS WRITTEN IN TREATMENT TEXT IN THE ORDER BODY.
--- NOTE | 2017-03-31 22:50 | Event Note ---
See Addendum Event Note Event Note: The patient has hx of chronic C. diff s/p multiple fecal transplant. She was instructed by her Gastroenterology (Citlaly Hernandez MD) to avoid all abx as possible and to contact him if Abx is needed. Today patient was diagnosed with diverticulitis, after confirming the diagnosis with radiology over the phone, I contacted Bridger Nathan MD who was covering Dr. Boucher and her agreed with starting the patient on Abx if it will be given after oral vanco. 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 over the phone endo recommended stress does of steroid as hydrocortisones IV 50 mg tonight followed by IV 25 mg hydrocortisone BID tomorrow.
[2017-04-01 07:04] VITALS: BP 158/82
[2017-04-01 08:05] LABS: ABSOLUTE BASOPHIL COUNT 0 /CUMM (0.0-0.2); ABSOLUTE EOSINOPHIL COUNT 0 /CUMM (0.0-0.7); ABSOLUTE GRANULOCYTE CT 4.2 /CUMM (1.4-6.5); ABSOLUTE LYMPH COUNT 1.3 /CUMM (1.2-3.4); ABSOLUTE MONOCYTE COUNT 0.7 /CUMM (0.10-0.60); BASOPHIL % 0.4 % (0.0-2.0); EOSINOPHIL % 0.1 % (0-5); GRANULOCYTE % 67.4 % (42.2-75.2); HEMATOCRIT 42.6 % (37-47); MEAN CORPUSCULAR HGB 26.6 PG (27.0-31.0); MEAN CORPUSCULAR HGB CONC 32.2 G/DL (33.0-37.0); MEAN CORPUSCULAR VOLUME 82.8 FL (81.0-99.0); MEAN PLATELET VOLUME 8.1 FL (7.4-10.4); PLATELET COUNT 314 /CUMM (130-400); RBC DISTRIBUTION WIDTH 15.9 % (11.5-14.5); RED BLOOD CELL CT 5.15 /CUMM (4.20-5.40); WHITE BLOOD CELL COUNT 6.3 /CUMM (4.8-10.8)
[2017-04-01 08:15] LABS: PT 33.2 SEC (9.4-12.5)
--- NOTE | 2017-04-01 09:06 | PN- Housestaff ---
See Addendum Subjective Follow-up For: diverticulitis h/o c diff Subjective: LLQ pain, NPO on iv fluids, afebrile, no n/v//d Review of Systems Constitutional: Reports: see HPI. Objective Last 24 Hrs of Vital Signs/I&O Vital Signs Date Time Temp Pulse Resp B/P B/P Pulse O2 O2 Flow FiO2 Mean Ox Delivery Rate 04/01 0921 80 150/80 04/01 0704 97.8 84 18 158/82 92 03/31 2149 98.1 88 19 160/90 94 Room Air 03/31 1855 88 180/100 03/31 1814 98.0 88 19 180/100 94 Room Air 03/31 1739 97.3 88 18 186/82 96 Room Air 03/31 1403 97.2 84 18 166/82 97 Room Air 03/31 1259 98.3 88 18 185/94 95 Room Air Intake & Output 04/01 1600 04/01 0800 04/01 0000 Intake Total 320 Output Total 400 Balance -400 320 Intake, IV 300 Intake, Oral 20 Output, Urine 400 Patient 78.018 kg Weight Weight Reported by Patient Measurement Method Physical Exam General Appearance: Alert, Oriented X3, Cooperative, No Acute Distress Cardiovascular: Regular Rate, Normal S1, Normal S2, No Murmurs Lungs: Clear to Auscultation Abdomen: Normal Bowel Sounds, Soft, LLQ tenderness Extremities: No Clubbing, No Cyanosis, No Edema, Normal Pulses Current Medications: Current Medications Sig/Gricelda Start time Last Medication Dose Route Stop Time Status Admin Alprazolam 0.25 MG BID PRN 03/31 2199 AC 03/31 PO 04/07 2158 215 Budesonide/ 2 PUF BID 03/31 2199 AC 03/31 Formoterol Fumarate INH 2147 Ceftriaxone Sodium 1,000 MG 0100 04/01 0100 AC 04/01 IV 0127 Ceftriaxone Sodium 1,000 MG Q24H 03/31 2199 DC IV Dextrose/Sodium 1,000 ML Q13H 03/31 1515 AC 04/01 Chloride IV 0547 Diclofenac Sodium 1 ROBERTO 4 TIMES/DAY 03/31 2199 AC TOP Duloxetine HCl 60 MG DAILY 04/01 1000 AC 04/01 PO 09 Famotidine 20 MG DAILY 04/01 1000 AC 04/01 PO 09 Furosemide 20 MG ONCE ONE 03/31 2044 DC 03/31 PO 03/31 2045 2147 Gabapentin 300 MG BID 03/31 2200 AC 04/01 PO 0921 Guaifenesin 600 MG BID PRN 03/31 1815 AC PO Hydrocortisone 20 MG DAILY 04/01 1000 CAN PO Hydrocortisone 10 MG AT BEDTIME 03/31 2200 CAN PO Hydrocortisone 25 MG Q12 04/01 1000 AC 04/01 Sodium Succinate IV 0921 Hydrocortisone 50 MG ONE ONE 03/31 1845 DC 03/31 Sodium Succinate IV 03/31 184 1856 Lactobacillus 1 CAP DAILY 04/01 1000 AC 04/01 Acidophilus PO 0921 Losartan Potassium 50 MG DAILY 03/31 1807 AC 04/01 PO 0921 Metronidazole 500 MG IQ8 04/01 1600 AC N/A 1 UNIT IV Thiamine HCl 100 MG DAILY 04/01 1000 AC 04/01 PO 0921 Trimethobenzamide HCl 200 MG ONCE ONE 03/31 1515 DC 03/31 IM 03/31 1516 1528 Trimethobenzamide HCl 0 .STK-MED ONE 03/31 1514 DC IM Vancomycin HCl 125 MG Q6 03/31 2359 AC 04/01 PO 1236 Last 24 Hrs of Lab/Javier Results Last 24 Hrs of Labs/Mics: Laboratory Tests 04/01/17 0710: Urine Color YEL, Urine Clarity CLEAR, Urine pH 6.0, Ur Specific [place] 1.025, Urine Protein NEG, Urine Ketones 40 H, Urine Nitrite NEG, Urine Bilirubin NEG@ ICTO, Urine Urobilinogen 0.2, Ur Leukocyte Esterase NEG, Ur Microscopic SEDIMENT EXAMINED, Urine RBC RARE, Urine WBC RARE, Ur Epithelial Cells RARE, Hyaline Casts 1-3 H, Granular Casts RARE H, Urine Mucus FEW, Urine Hemoglobin TRACE- INTACT, Urine Glucose NEG 04/01/17 0630: Anion Gap 15, Estimated GFR > 60, BUN/Creatinine Ratio 18.6, PT 33.2 H, INR 3.20 H, CBC w Diff NO MAN DIFF REQ, RBC 5.15, MCV 82.8, MCH 26.6 L, MCHC 32.2 L, RDW 15.9 H, MPV 8.1, Gran % 67.4, Lymphocytes % 20.9, Monocytes % 11.2 H, Eosinophils % 0.1, Basophils % 0.4, Absolute Granulocytes 4.2, Absolute Lymphocytes 1.3, Absolute Monocytes 0.7 H, Absolute Eosinophils 0, Absolute Basophils 0 02/10/18 1835: PT 35.0 H, INR 3.37 H Microbiology 03/31 145 STOOL: Clostridium difficile Toxin A & B - RES 03/31 1457 STOOL: Stool Culture - RES Assessment/Plan Assessment: Plan * Continue IV rehydration * NPO * Discussed with patient's bull driver * Continue IV ceftriaxone and metronidazole after given home does of oral vanco * Continue 25 mg IV twice a day (as per endocrinology) * Hold Coumadin given supratherapeutic INR, repeat INR in am. * Continue the rest of home medication including antihypertensive medication and oral vancomycin * Follow up endocrinology recommendations in regard of management of Pedro disease Nothing by mouth DVT prophylaxis with Alps, holding Coumadin for now given supratherapeutic INR Full code Problem List: 1. [place]'s disease 2. Acute diverticulitis 3. Supratherapeutic INR Pain Ratin Pain Location: llq Pain Goal: Pain 4 or less Pain Plan: PRN Tomorrow's Labs & Rationales: CBC,BEP,PTINR
--- NOTE | 2017-04-01 14:14 | Admission Certification ---
Admission Certification Certification Statement - As attending physician, I certify that at the time of - admission, based on clinical presentation, severity of - symptoms, need for further diagnostic testing and - therapeutic interventions, and risk of adverse outcomes - without in-hospital treatment, in my clinical assessment, - this patient requires an acute hospital stay for a minimum - of two nights or longer. I have also considered psychsocial - factors such as support system, advanced age, financial - issues, cognitive issues, and failed out-patient treatments, - past re-admission history, safety of patient, and lack of - compliance as applicable. Specific rationale supporting this admission is: Treatment with parenteral antibiotics for acute diverticulitis.
[2017-04-01 14:53] VITALS: BP 152/86
--- NOTE | 2017-04-01 16:17 | Cons- Endocrinology ---
General Information and HPI Consulting Request Date of Consult: 04/01/17 Requested By: medical team Reason for Consult: management of Pedro's disease Source of Information: patient Exam Limitations: no limitations History of Present Illness: 85-year-old woman from assisted living with past medical history significant for non-oxygen dependent COPD, hypertension, congestive heart failure, chronic back pain, history of PE in the past on anticoagulation, history of C. 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 She was diagnosed with diverticulitis and has been kept NPO. She received hydrocortisone 50 mg iv last night. She was put on Hydrocortisone 25 mg iv twice a day today. Her diarrhea has resolved. She still has mild LLQ abdominal pain. She has been on D51/2 NS at 75 ml/hour. Allergies/Medications Allergies: Coded Allergies: codeine (Severe, UNKNOWN PER PT 02/19/16) Uncoded Allergies: ALL ANTIBIOTICS (HAD FECAL TRANSPLANT 05/20/16) Home Med List: Alprazolam 0.25 MG TABLET 1 TAB PO BIDP PRN ANXIETY (Reported) Calcium Carbonate/Vitamin D3 (Calcium + Vitamin D Tablet) 600 MG-200 TABLET 1 TAB PO BID SUPPLEMENT (Reported) Diclofenac Sodium (Voltaren) 1 % GEL..GRAM. 1 GM TOP 4 TIMES/DAY HAND PAIN ( Reported) apply to affected area(s) Duloxetine HCl (Cymbalta) 60 MG CAPSULE.DR 1 CAP PO DAILY PAIN AND DEPRESSION (Reported) Famotidine 20 MG TABLET 1 TAB PO DAILY GASTRITIS (Reported) Fluticasone/Salmeterol (Advair 250-50 Diskus) 250 MCG-50 MCG/DOSE BLST.W.DEV 1 PUF INH BID COPD (Reported) Folic Acid 1 MG TABLET 1 TAB PO DAILY SUPPLEMENT (Reported) Furosemide (Lasix) 20 MG TABLET 1 TAB PO DAILY heart (Reported) Gabapentin (Neurontin) 300 MG CAPSULE 1 CAP PO BID NEUROPATHY (Reported) Guaifenesin (Mucinex) 600 MG TAB.ER.12H 1 TAB PO BID PRN MUCUS (Reported) Hydrocortisone (Cortef) 20 MG TABLET 1 TAB PO QAM ADRENAL INSUFFICIENCY ( Reported) Hydrocortisone (Cortef) 10 MG TABLET 1 TAB PO QHS ADRENAL INSUFFIIENTY ( Reported) Lactobacillus Acidophilus (Acidophilus) 1 EACH CAPSULE 1 CAP PO DAILY GI ( Reported) Multivitamin (Multiple Vitamins) 1 EACH TABLET 1 TAB PO DAILY SUPPLEMENT ( Reported) Oxycodone HCl (Oxycontin) 10 MG TAB.ER.12H 10 MG PO BID PAIN (Reported) Thiamine HCl 100 MG TABLET 1 TAB PO DAILY SUPPLEMENT (Reported) Valsartan (Diovan) 160 MG TABLET 1 TAB PO DAILY BP (Reported) Vancomycin HCl (Vancocin HCl) 125 MG CAPSULE 125 MG PO DAILY C DIFFICLE ( Reported) Warfarin Sodium (Coumadin) 2 MG TABLET 2 TAB PO 1700 BLOOD THINNER PLEASE DO NOT GIVE UNITL INR IS CHECKED AND IS BELOW 3. Wheat Dextrin (Benefiber) (Unknown Strength) POWDER 1 TBSP PO DAILY CONSTIPATION (Reported) Review of Systems Review of Systems Constitutional: Reports: see HPI. Cardiovascular: Denies: chest pain. Respiratory: Denies: short of breath. GI: Reports: abdominal pain. Musculoskeletal: Denies: back pain. Hematologic/Endocrine: Reports: see HPI. Past History Travel History Traveled to [place] past 21 day No Medical History Blood Transfusion Hx: Yes Neurological: CVA EENT: NONE Cardiovascular: CHF, hypertension, hyperlipidemia, Endocarditis Respiratory: COPD (on 2 L oxygen at home) Gastrointestinal: diverticulitis, RECURRENT c. 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 Psychosocial History Where Do You Live? Assisted Living Services at Home: Home Health Aide, Nursing Smoking Status: Former Smoker Functional Ability ADLs Independent: dressing, eating, toileting, bathing. Ambulation: walker Exam & Diagnostic Data Last 24 Hrs of Vital Signs/I&O Vital Signs Date Time Temp Pulse Resp B/P B/P Pulse O2 O2 Flow FiO2 Mean Ox Delivery Rate 04/01 1453 98.4 82 20 152/86 96 04/01 0921 80 150/80 04/01 0704 97.8 84 18 158/82 92 03/31 2149 98.1 88 19 160/90 94 Room Air 03/31 1855 88 180/100 03/31 1814 98.0 88 19 180/100 94 Room Air 03/31 1739 97.3 88 18 186/82 96 Room Air Intake & Output 04/01 1600 04/01 0800 04/01 0000 Intake Total 700 320 Output Total 0 400 Balance 700 -400 320 Intake, IV 700 300 Intake, Oral 0 20 Number 0 Bowel Movements Output, Urine 0 400 Patient 172 lb Weight Weight Reported by Patient Measurement Method Physical Exam General Appearance: no apparent distress Neck: normal inspection Gastrointestinal: soft, tenderness (LLQ) Extremities: no edema Labs/Javier Results: Laboratory Tests 04/01 04/01 0710 0630 Chemistry Sodium (137 - 145 mmol/L) 143 Potassium (3.5 - 5.1 mmol/L) 3.8 Chloride (98 - 107 mmol/L) 104 Carbon Dioxide (22 - 30 mmol/L) 24 Anion Gap (5 - 16) 15 BUN (7 - 17 mg/dL) 13 Creatinine (0.5 - 1.0 mg/dL) 0.7 Estimated GFR (>60 ml/min) > 60 BUN/Creatinine Ratio (7 - 25 %) 18.6 Coagulation PT (9.4 - 12.5 SEC) 33.2 H INR (0.90 - 1.19) 3.20 H Hematology CBC w Diff NO MAN DIFF REQ WBC (4.8 - 10.8 /CUMM) 6.3 RBC (4.20 - 5.40 /CUMM) 5.15 Hgb (12.0 - 16.0 G/DL) 13.7 Hct (37 - 47 %) 42.6 MCV (81.0 - 99.0 FL) 82.8 MCH (27.0 - 31.0 PG) 26.6 L MCHC (33.0 - 37.0 G/DL) 32.2 L RDW (11.5 - 14.5 %) 15.9 H Plt Count (130 - 400 /CUMM) 314 MPV (7.4 - 10.4 FL) 8.1 Gran % (42.2 - 75.2 %) 67.4 Lymphocytes % (20.5 - 51.1 %) 20.9 Monocytes % (1.7 - 9.3 %) 11.2 H Eosinophils % (0 - 5 %) 0.1 Basophils % (0.0 - 2.0 %) 0.4 Absolute Granulocytes (1.4 - 6.5 /CUMM) 4.2 Absolute Lymphocytes (1.2 - 3.4 /CUMM) 1.3 Absolute Monocytes (0.10 - 0.60 /CUMM) 0.7 H Absolute Eosinophils (0.0 - 0.7 /CUMM) 0 Absolute Basophils (0.0 - 0.2 /CUMM) 0 Urines Urine Color (YEL,AMB,STR) YEL Urine Clarity (CLEAR) CLEAR Urine pH (5.0 - 8.0) 6.0 Ur Specific [place] (1.001 - 1.035) 1.025 Urine Protein (NEG,<30 MG/DL) NEG Urine Ketones (NEG) 40 H Urine Nitrite (NEG) NEG Urine Bilirubin (NEG) NEG@ICTO Urine Urobilinogen (0.1 - 1.0 EU/dl) 0.2 Ur Leukocyte Esterase (NEG) NEG Ur Microscopic SEDIMENT EXAMINED Urine RBC (0 - 5 /HPF) RARE Urine WBC (0 - 2 /HPF) RARE Ur Epithelial Cells (NONE,FEW) RARE Hyaline Casts (0/LPF) 1-3 H Granular Casts (NONE /LPF) RARE H Urine Mucus (FEW,NONE) FEW Urine Hemoglobin (NEG) TRACE-INTACT Urine Glucose (N MG/DL) NEG 03/31 03/31 1835 1820 Chemistry Lactic Acid Cancelled Coagulation PT (9.4 - 12.5 SEC) 35.0 H INR (0.90 - 1.19) 3.37 H Assessment/Plan Assessment/Plan 85-year-old woman from assisted living with past medical history significant for non-oxygen dependent COPD, hypertension, congestive heart failure, chronic back pain, history of PE in the past on anticoagulation, history of C. difficile, and [place]'s disesae diagnosed by Dr. Pierre approximately 5 years ago and has been on Hydrocortisone 20 mg am and 10 mg pm, came with chief complaint of 2 days of diarrhea and generalize weakness. She was diagnosed with diverticulitis. As she has been kept NPO and has been on D5 1/2 NS at 75 ml/hour. I will continue Hydrocortisone 25 mg iv twice a day for now. Once she feels better, her stress dose of steroid will be adjusted accordingly. will follow. Consult Acknowledgment - Thank you for your consult request.
[2017-04-01 21:41] VITALS: BP 112/80
[2017-04-01 23:12] VITALS: BP 140/64
[2017-04-02 06:59] VITALS: BP 131/66; BP 158/82
--- NOTE | 2017-04-02 08:52 | PN- Housestaff ---
See Addendum Subjective Follow-up For: acute diverticulitis h/o c diff Subjective: patient remains NPO, not hungry no fevers or chills denies any episodes of n/v/d persistent LLQ abdominal pain and tenderness on palpation Review of Systems Constitutional: Reports: see HPI. Objective Last 24 Hrs of Vital Signs/I&O Vital Signs Date Time Temp Pulse Resp B/P B/P Pulse O2 O2 Flow FiO2 Mean Ox Delivery Rate 04/02 0659 97.7 64 18 131/66 92 04/01 2312 140/64 04/01 2141 97.5 82 18 112/80 95 Room Air 04/01 1453 98.4 82 20 152/86 96 Intake & Output 04/02 1600 04/02 0800 04/02 0000 Intake Total 870 700 Output Total 300 300 Balance 570 400 Intake, IV 870 700 Output, Urine 300 300 Physical Exam General Appearance: Alert, Oriented X3, Cooperative, No Acute Distress Cardiovascular: Regular Rate, Normal S1, Normal S2, No Murmurs Lungs: Clear to Auscultation, Normal Air Movement Abdomen: Normal Bowel Sounds, Soft, No Masses, LLQ tender to palpation, no guarding or rebound tenderness Extremities: No Clubbing, No Cyanosis, No Edema, Normal Pulses Current Medications: Current Medications Sig/Gricelda Start time Last Medication Dose Route Stop Time Status Admin Alprazolam 0.25 MG BID PRN 03/31 2199 AC 04/02 PO 04/07 2159 0942 Budesonide/ 2 PUF BID 03/31 2199 AC 03/31 Formoterol Fumarate INH 2147 Ceftriaxone Sodium 1,000 MG 0100 04/01 0100 AC 04/02 IV 0031 Dextrose/Sodium 1,000 ML Q13H 03/31 1515 AC 04/02 Chloride IV 0507 Diclofenac Sodium 1 ROBERTO 4 TIMES/DAY 03/31 2199 AC TOP Duloxetine HCl 60 MG DAILY 04/01 1000 AC 04/02 PO 0855 Famotidine 20 MG DAILY 04/01 1000 AC 04/02 PO 0854 Gabapentin 300 MG BID 03/31 2200 AC 04/02 PO 0854 Guaifenesin 600 MG BID PRN 03/31 1815 AC PO Hydrocortisone 25 MG Q12 04/01 1000 AC 04/02 Sodium Succinate IV 0852 Lactobacillus 1 CAP DAILY 04/01 1000 AC 04/02 Acidophilus PO 0854 Losartan Potassium 50 MG DAILY 03/31 1807 AC 04/02 PO 0855 Metronidazole 500 MG IQ8 04/01 1600 AC 04/02 N/A 1 UNIT IV 0851 Potassium Chloride 20 MEQ ONCE ONE 04/02 1330 UNVr PO 04/02 1331 Thiamine HCl 100 MG DAILY 04/01 1000 AC 04/02 PO 0855 Vancomycin HCl 125 MG Q6 03/31 2359 AC 04/02 PO 0624 Warfarin Sodium 2 MG COUMADIN 1700 ONE 04/02 1700 UNVr PO 04/02 1701 Last 24 Hrs of Lab/Javier Results Last 24 Hrs of Labs/Mics: Laboratory Tests 04/02/17 0920: Anion Gap 9, Estimated GFR > 60, BUN/Creatinine Ratio 10.0, Hemoglobin A1c Pending, PT 25.4 H, INR 2.44 H, CBC w Diff NO MAN DIFF REQ, RBC 4.51, MCV 82.6 , MCH 26.7 L, MCHC 32.3 L, RDW 15.9 H, MPV 7.9, Gran % 65.9, Lymphocytes % 23.1, Monocytes % 9.2, Eosinophils % 1.3, Basophils % 0.5, Absolute Granulocytes 4.0, Absolute Lymphocytes 1.4, Absolute Monocytes 0.6, Absolute Eosinophils 0.1, Absolute Basophils 0 Assessment/Plan Assessment: 85 year old female from assisted living with [facility] significant for non-oxygen dependent COPD, hypertension, congestive heart failure, chronic back pain, history of PE in the past on anticoagulation, history of C. difficile and fecal transplantation presented with two days of abdominal pain and diarrhea. 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 Acute diverticulitis 2. Recurrent Clostridium difficile diarrhea 3. Abdominal pain 4. Grundy's disease 5. HISTORY - C-DIFF COLITIS Pain Ratin Pain Location: LLQ Pain Goal: Pain 4 or less Pain Plan: prn Tomorrow's Labs & Rationales: pt/inr
[2017-04-02 09:47] LABS: PT 25.4 SEC (9.4-12.5)
[2017-04-02 10:14] LABS: ABSOLUTE BASOPHIL COUNT 0 /CUMM (0.0-0.2); ABSOLUTE EOSINOPHIL COUNT 0.1 /CUMM (0.0-0.7); ABSOLUTE LYMPH COUNT 1.4 /CUMM (1.2-3.4); ABSOLUTE MONOCYTE COUNT 0.6 /CUMM (0.10-0.60); BASOPHIL % 0.5 % (0.0-2.0); EOSINOPHIL % 1.3 % (0-5); GRANULOCYTE % 65.9 % (42.2-75.2); MEAN CORPUSCULAR HGB 26.7 PG (27.0-31.0); MEAN CORPUSCULAR HGB CONC 32.3 G/DL (33.0-37.0); MEAN CORPUSCULAR VOLUME 82.6 FL (81.0-99.0); MEAN PLATELET VOLUME 7.9 FL (7.4-10.4); PLATELET COUNT 281 /CUMM (130-400); RBC DISTRIBUTION WIDTH 15.9 % (11.5-14.5); RED BLOOD CELL CT 4.51 /CUMM (4.20-5.40)
[2017-04-02 10:18] LABS: HEMATOCRIT 37.3 % (37-47)
--- NOTE | 2017-04-02 12:34 | PN- Endocrinology ---
Assessment/Plan Assessment: 85-year-old woman from assisted living with past medical history significant for non-oxygen dependent COPD, hypertension, congestive heart failure, chronic back pain, history of PE in the past on anticoagulation, history of C. difficile, and [place]'s disesae diagnosed by Dr. Pierre approximately 5 years ago and has been on Hydrocortisone 20 mg am and 10 mg pm, came with chief complaint of 2 days of diarrhea and generalize weakness. She was diagnosed with diverticulitis. Currently she is kept NPO and has been on D5 1/2 NS at 100 ml/hour and Hydrocortisone 25 mg iv twice a day. Her vital signs have been stable; her FSGs were 126, 121, 83, 112, 138, 204 and 123. Plan: 1. if she will be on a diet, I will changing hydrocortisone to 20 mg po daily at 8 am and 10 mg daily at 4 pm; 2. continue monitoring her glucose level; 3. check HbA1c just to make sure. will follow. Subjective Subjective: She feels okay this morning. Objective Last 24 Hrs of Vital Signs/I&O Vital Signs Date Time Temp Pulse Resp B/P B/P Pulse O2 O2 Flow FiO2 Mean Ox Delivery Rate 04/02 0659 97.7 64 18 131/66 92 04/01 2312 140/64 04/01 2141 97.5 82 18 112/80 95 Room Air 04/01 1453 98.4 82 20 152/86 96 Intake & Output 04/02 1600 04/02 0800 04/02 0000 Intake Total 870 700 Output Total 300 300 Balance 570 400 Intake, IV 870 700 Output, Urine 300 300 Results Pertinent Lab/Javier Results: Laboratory Tests 04/02 0920 Chemistry Sodium (137 - 145 mmol/L) 144 Potassium (3.5 - 5.1 mmol/L) 3.5 Chloride (98 - 107 mmol/L) 106 Carbon Dioxide (22 - 30 mmol/L) 28 Anion Gap (5 - 16) 9 BUN (7 - 17 mg/dL) 8 Creatinine (0.5 - 1.0 mg/dL) 0.8 Estimated GFR (>60 ml/min) > 60 BUN/Creatinine Ratio (7 - 25 %) 10.0 Coagulation PT (9.4 - 12.5 SEC) 25.4 H INR (0.90 - 1.19) 2.44 H Hematology CBC w Diff NO MAN DIFF REQ WBC (4.8 - 10.8 /CUMM) 6.0 RBC (4.20 - 5.40 /CUMM) 4.51 Hgb (12.0 - 16.0 G/DL) 12.0 Hct (37 - 47 %) 37.3 MCV (81.0 - 99.0 FL) 82.6 MCH (27.0 - 31.0 PG) 26.7 L MCHC (33.0 - 37.0 G/DL) 32.3 L RDW (11.5 - 14.5 %) 15.9 H Plt Count (130 - 400 /CUMM) 281 MPV (7.4 - 10.4 FL) 7.9 Gran % (42.2 - 75.2 %) 65.9 Lymphocytes % (20.5 - 51.1 %) 23.1 Monocytes % (1.7 - 9.3 %) 9.2 Eosinophils % (0 - 5 %) 1.3 Basophils % (0.0 - 2.0 %) 0.5 Absolute Granulocytes (1.4 - 6.5 /CUMM) 4.0 Absolute Lymphocytes (1.2 - 3.4 /CUMM) 1.4 Absolute Monocytes (0.10 - 0.60 /CUMM) 0.6 Absolute Eosinophils (0.0 - 0.7 /CUMM) 0.1 Absolute Basophils (0.0 - 0.2 /CUMM) 0
[2017-04-02 14:42] VITALS: BP 140/68
--- NOTE | 2017-04-02 21:16 | RADIOLOGY REPORT ---
EXAMINATION: XR PORTABLE CHEST CLINICAL INFORMATION: Shortness of breath COMPARISON: Chest x-ray 05/21/2016 TECHNIQUE: Portable frontal view of the chest was obtained. 8:[address] abdomen pelvis 03/31/2017 FINDINGS: No significant abnormality is noted involving the heart, lungs, mediastinum, bony thorax or soft tissues. IMPRESSION: Unremarkable examination.
[2017-04-02 23:06] VITALS: BP 130/60
[2017-04-03 07:35] VITALS: BP 132/80
--- NOTE | 2017-04-03 07:40 | PN- Housestaff ---
See Addendum Subjective Follow-up For: acute diverticulitis Subjective: afebrile abdominal pain improved today still not hungry advancing to clears reported some dyspnea overnight Review of Systems Constitutional: Reports: see HPI. Objective Last 24 Hrs of Vital Signs/I&O Vital Signs Date Time Temp Pulse Resp B/P B/P Pulse O2 O2 Flow FiO2 Mean Ox Delivery Rate 04/03 0735 98.5 66 20 132/80 96 Room Air 04/03 0000 Room Air 04/02 2306 97.9 75 18 130/60 95 Room Air 04/02 2141 Room Air 04/02 1442 97.8 70 20 140/68 95 Room Air Intake & Output 04/03 1600 04/03 0800 04/03 0000 Intake Total 800 Output Total 500 1100 Balance 300 -1100 Intake, IV 800 Number 1 Bowel Movements Output, Urine 500 1100 Physical Exam General Appearance: Alert, Oriented X3, Cooperative, No Acute Distress Cardiovascular: Regular Rate, Normal S1, Normal S2, No Murmurs Lungs: Clear to Auscultation, Normal Air Movement Abdomen: Normal Bowel Sounds, Soft, No Tenderness, No Masses Extremities: No Clubbing, No Cyanosis, No Edema, Normal Pulses Current Medications: Current Medications Sig/Gricelda Start time Last Medication Dose Route Stop Time Status Admin Albuterol Sulfate 3 ML Q4P PRN 04/02 2144 AC INH Albuterol Sulfate 3 ML ONCE ONE 04/02 2030 DC INH 04/02 203 Alprazolam 0.25 MG BID PRN 03/31 2199 AC 04/02 PO 04/07 2159 2128 Budesonide/ 2 PUF BID 03/31 2199 AC 03/31 Formoterol Fumarate INH 214 Ceftriaxone Sodium 1,000 MG 0100 04/01 0100 AC 04/03 IV 0043 Dextrose/Sodium 1,000 ML Q13H 03/31 1515 DC 04/03 Chloride IV 0548 Diclofenac Sodium 1 ROBERTO 4 TIMES/DAY 03/31 2199 AC TOP Duloxetine HCl 60 MG DAILY 04/01 1000 AC 04/02 PO 0855 Famotidine 20 MG DAILY 04/01 1000 AC 04/02 PO 0854 Gabapentin 300 MG BID 03/31 2199 AC 04/02 PO 2122 Guaifenesin 600 MG BID PRN 03/31 1815 AC PO Hydrocortisone 10 MG 1600 04/03 1600 AC PO Hydrocortisone 20 MG 0800 04/03 0800 AC PO Hydrocortisone 25 MG Q12 04/01 1000 DC 04/02 Sodium Succinate IV 2121 Insulin Human Regular 0 Q6 04/02 1339 DC 04/03 SC 0045 Ipratropium [place] 2.5 ML ONCE ONE 04/02 2030 DC INH 04/02 2031 Lactobacillus 1 CAP DAILY 04/01 1000 AC 04/02 Acidophilus PO 0854 Losartan Potassium 50 MG DAILY 03/31 1807 AC 04/02 PO 0855 Metronidazole 500 MG IQ8 04/01 1600 AC 04/03 N/A 1 UNIT IV 0044 Potassium Chloride 20 MEQ ONCE ONE 04/02 1330 DC 04/02 PO 04/02 1331 1724 Thiamine HCl 100 MG DAILY 04/01 1000 AC 04/02 PO 0855 Vancomycin HCl 125 MG Q6 03/31 2359 AC 04/03 PO 0550 Warfarin Sodium 2 MG COUMADIN 1700 ONE 04/02 1700 DC 04/02 PO 04/02 1701 1725 Last 24 Hrs of Lab/Javier Results Last 24 Hrs of Labs/Mics: Laboratory Tests 04/03/17 0705: Sodium Pending, Potassium Pending, Chloride Pending, Carbon Dioxide Pending, Anion Gap Pending, BUN Pending, Creatinine Pending, BUN/Creatinine Ratio Pending , PT Pending, INR Pending 04/02/17 0920: Anion Gap 9, Estimated GFR > 60, BUN/Creatinine Ratio 10.0, Hemoglobin A1c 6.1 H, PT 25.4 H, INR 2.44 H, CBC w Diff NO MAN DIFF REQ, RBC 4.51, MCV 82.6, MCH 26.7 L, MCHC 32.3 L, RDW 15.9 H, MPV 7.9, Gran % 65.9, Lymphocytes % 23.1, Monocytes % 9.2, Eosinophils % 1.3, Basophils % 0.5, Absolute Granulocytes 4.0, Absolute Lymphocytes 1.4, Absolute Monocytes 0.6, Absolute Eosinophils 0.1, Absolute Basophils 0 Microbiology 04/02 1620 STOOL: Clostridium difficile Toxin A & B - RECD Assessment/Plan Assessment: 85 year old female from assisted living with [facility] significant for non-oxygen dependent COPD, hypertension, congestive heart failure, chronic back pain, history of PE in the past on anticoagulation, history of C. difficile and fecal transplantation presented with two days of abdominal pain and diarrhea. Diverticulitis: Discontinue IV fluids Clear liquid diet, advance as tolerated Discussed with dietetics professor-plan to continue PO Vancomycin 125mg Q6H for duration of antibiotic treatment for diverticulitis then resume suppressive therapy Continue IV ceftriaxone and metronidazole after given home does of oral vanco Continuing to have loose BM's, follow up repeat C. difficile Pulmonary embolism: INR 2.44, Coumadin 2mg today Check daily PT/INR, dose coumadine Pedro's disease: Follow up endocrinology recommendations in regard of management of Pedro disease 20mg hydrocortisone in AM and 10mg in PM, follow up hemoglobin a1c Continue the rest of home medication including antihypertensive medication Clear liquid diet DVT ppx-on coumadine Full code Problem List: 1. [place]'s disease 2. BILATERAL PULMONARY EMBOLI 3. Acute diverticulitis 4. Diarrhea Pain Ratin Pain Location: n/a Pain Goal: Pain 4 or less Pain Plan: prn Tomorrow's Labs & Rationales: none
[2017-04-03 08:29] LABS: PT 25.2 SEC (9.4-12.5)
--- NOTE | 2017-04-03 11:41 | PN- Endocrinology ---
Assessment/Plan Assessment: 85-year-old woman from assisted living with past medical history significant for non-oxygen dependent COPD, hypertension, congestive heart failure, chronic back pain, history of PE in the past on anticoagulation, history of C. difficile, and [place]'s disesae diagnosed by Dr. Pierre approximately 5 years ago and has been on Hydrocortisone 20 mg am and 10 mg pm, came with chief complaint of 2 days of diarrhea and generalize weakness. She was diagnosed with diverticulitis. She was put on stress dose of steroid initially. She was started on a diet and Hydrocortisone was changed to her usual dosage-- Hydrocortisone 20 mg am and 10 mg pm. Her vital signs have been stable; her FSGs were 124, 152, 102 and 106. HbA1c was 6.1%. Plan: 1. continue the current hydrocortisone for now. 2. monitor vital sign, electrolytes. 3. HbA1c is mildly elevated suggestive of prediabetes, i will recommend diet control. 4. continue monitoring FSGs. will follow. Subjective Subjective: She feels okay this morning. Objective Last 24 Hrs of Vital Signs/I&O Vital Signs Date Time Temp Pulse Resp B/P B/P Pulse O2 O2 Flow FiO2 Mean Ox Delivery Rate 04/03 0844 80 140/80 04/03 0800 95 Room Air 04/03 0735 98.5 66 20 132/80 96 Room Air 04/03 0000 Room Air 04/02 2306 97.9 75 18 130/60 95 Room Air 04/02 2141 Room Air 04/02 1442 97.8 70 20 140/68 95 Room Air Intake & Output 04/03 1600 04/03 0800 04/03 0000 Intake Total 800 Output Total 500 1100 Balance 300 -1100 Intake, IV 800 Number 1 Bowel Movements Output, Urine 500 1100 Results Pertinent Lab/Javier Results: Laboratory Tests 04/03 0705 Chemistry Sodium (137 - 145 mmol/L) 145 Potassium (3.5 - 5.1 mmol/L) 3.7 Chloride (98 - 107 mmol/L) 109 H Carbon Dioxide (22 - 30 mmol/L) 27 Anion Gap (5 - 16) 9 BUN (7 - 17 mg/dL) 6 L Creatinine (0.5 - 1.0 mg/dL) 0.7 Estimated GFR (>60 ml/min) > 60 BUN/Creatinine Ratio (7 - 25 %) 8.6 Coagulation PT (9.4 - 12.5 SEC) 25.2 H INR (0.90 - 1.19) 2.42 H
--- NOTE | 2017-04-03 13:21 | PN- Att Addend ---
Attending Addendum Attending Brief Note Events over the weekend noted patient admitted with acute diverticulitis, due to all her comorbidities history of C. difficile with antibiotics by her GI specialist was contacted and recommendations were given regarding antibiotic treatment. Also was seen by endocrine due to her adrenal insufficiency appreciate all the recommendations. Patient's diet advanced a little bit today and will continue observation and reassess antibiotic therapy in the morning Intake & Output 04/03 1600 04/03 0400 04/02 1600 04/02 0400 04/01 1600 04/01 0400 Intake Total 1400 1670 700 700 320 Output Total 850 1100 700 300 400 Balance 550 -1100 970 400 300 320 Intake, IV 900 1670 700 700 300 Intake, Oral 500 0 20 Number 1 3 0 Bowel Movements Output, Urine 850 1100 700 300 400 Patient 172 lb Weight Weight Reported by Patient Measurement Method Current Medications Sig/Gricelda Start time Last Medication Dose Route Stop Time Status Admin Albuterol Sulfate 3 ML Q4P PRN 04/02 2144 AC INH Albuterol Sulfate 3 ML ONCE ONE 04/02 2030 DC INH 04/02 203 Alprazolam 0.25 MG BID PRN 03/31 220 AC 04/03 PO 04/07 2159 1307 Budesonide/ 2 PUF BID 03/31 2199 AC 03/31 Formoterol Fumarate INH 2147 Ceftriaxone Sodium 1,000 MG 0100 04/01 0100 AC 04/03 IV 0043 Dextrose/Sodium 1,000 ML Q13H 03/31 1515 DC 04/03 Chloride IV 0548 Diclofenac Sodium 1 ROBERTO 4 TIMES/DAY 03/31 2199 AC TOP Duloxetine HCl 60 MG DAILY 04/01 1000 AC 04/03 PO 0844 Famotidine 20 MG DAILY 04/01 1000 AC 04/03 PO 0844 Gabapentin 300 MG BID 03/31 2200 AC 04/03 PO 0844 Guaifenesin 600 MG BID PRN 03/31 1815 AC PO Hydrocortisone 10 MG 1600 04/03 1600 AC PO Hydrocortisone 20 MG 0800 04/03 0800 AC 04/03 PO 0850 Hydrocortisone 25 MG Q12 04/01 1000 DC 04/02 Sodium Succinate IV 2121 Insulin Aspart 2 UNITS .STK-MED ONE 04/03 0035 DC SC 04/03 0036 Insulin Human Regular 2 UNITS .STK-MED ONE 04/03 0044 DC IV 04/03 0045 Insulin Human Regular 0 Q6 02/12 1339 DC 04/03 SC 0045 Ipratropium [place] 2.5 ML ONCE ONE 04/02 2030 DC INH 04/02 203 Lactobacillus 1 CAP DAILY 04/01 1000 AC 04/03 Acidophilus PO 0844 Losartan Potassium 50 MG DAILY 03/31 1807 AC 04/03 PO 0844 Metronidazole 500 MG IQ8 04/01 1600 AC 04/03 N/A 1 UNIT IV 0843 Potassium Chloride 20 MEQ ONCE ONE 04/02 1330 DC 04/02 PO 04/02 1331 1724 Thiamine HCl 100 MG DAILY 04/01 1000 AC 04/03 PO 0844 Vancomycin HCl 125 MG Q6 03/31 2359 AC 04/03 PO 1114 Warfarin Sodium 2 MG COUMADIN 1700 ONE 04/03 1700 AC PO 04/03 1701 Warfarin Sodium 2 MG COUMADIN 1700 ONE 04/02 1700 DC 04/02 PO 04/02 1701 1725 Laboratory Tests 04/03/17 0705: Anion Gap 9, Estimated GFR > 60, BUN/Creatinine Ratio 8.6, PT 25.2 H, INR 2.42 H 04/02/17 0920: Anion Gap 9, Estimated GFR > 60, BUN/Creatinine Ratio 10.0, Hemoglobin A1c 6.1 H, PT 25.4 H, INR 2.44 H, CBC w Diff NO MAN DIFF REQ, RBC 4.51, MCV 82.6, MCH 26.7 L, MCHC 32.3 L, RDW 15.9 H, MPV 7.9, Gran % 65.9, Lymphocytes % 23.1, Monocytes % 9.2, Eosinophils % 1.3, Basophils % 0.5, Absolute Granulocytes 4.0, Absolute Lymphocytes 1.4, Absolute Monocytes 0.6, Absolute Eosinophils 0.1, Absolute Basophils 0 04/01/17 0710: Urine Color YEL, Urine Clarity CLEAR, Urine pH 6.0, Ur Specific [place] 1.025, Urine Protein NEG, Urine Ketones 40 H, Urine Nitrite NEG, Urine Bilirubin NEG@ ICTO, Urine Urobilinogen 0.2, Ur Leukocyte Esterase NEG, Ur Microscopic SEDIMENT EXAMINED, Urine RBC RARE, Urine WBC RARE, Ur Epithelial Cells RARE, Hyaline Casts 1-3 H, Granular Casts RARE H, Urine Mucus FEW, Urine Hemoglobin TRACE- INTACT, Urine Glucose NEG 04/01/17 0630: Anion Gap 15, Estimated GFR > 60, BUN/Creatinine Ratio 18.6, PT 33.2 H, INR 3.20 H, CBC w Diff NO MAN DIFF REQ, RBC 5.15, MCV 82.8, MCH 26.6 L, MCHC 32.2 L, RDW 15.9 H, MPV 8.1, Gran % 67.4, Lymphocytes % 20.9, Monocytes % 11.2 H, Eosinophils % 0.1, Basophils % 0.4, Absolute Granulocytes 4.2, Absolute Lymphocytes 1.3, Absolute Monocytes 0.7 H, Absolute Eosinophils 0, Absolute Basophils 0 03/31/17 1835: PT 35.0 H, INR 3.37 H 03/31/17 1820: Lactic Acid Cancelled Microbiology 04/02 162 STOOL: Clostridium difficile Toxin A & B - RECD 03/31 145 STOOL: Clostridium difficile Toxin A & B - COMP 03/31 145 STOOL: Stool Culture - COMP Microbiology 04/02 162 STOOL: Clostridium difficile Toxin A & B - RECD 03/31 145 STOOL: Clostridium difficile Toxin A & B - COMP 03/31 1457 STOOL: Stool Culture - COMP Vital Signs Date Time Temp Pulse Resp B/P B/P Pulse O2 O2 Flow FiO2 Mean Ox Delivery Rate 04/03 0844 80 140/80 04/03 0800 95 Room Air 04/03 0735 98.5 66 20 132/80 96 Room Air 04/03 0000 Room Air 04/02 2306 97.9 75 18 130/60 95 Room Air 04/02 2141 Room Air 04/02 1442 97.8 70 20 140/68 95 Room Air
[2017-04-03 13:53] VITALS: BP 122/70
[2017-04-03 21:58] VITALS: BP 128/70
[2017-04-04 06:14] VITALS: BP 178/76
--- NOTE | 2017-04-04 08:04 | PN- Housestaff ---
Subjective Follow-up For: acute diverticulitis Subjective: abdominal pain significantly improved, tolerated full liquid diet but extremely poor appetite and po intake complained of feeling chills and cold overnight but this is normal for her, afebrile had many loose BMs past several days of which she complained but no nausea or vomiting c diff negative Review of Systems Constitutional: Reports: see HPI. Objective Last 24 Hrs of Vital Signs/I&O Vital Signs Date Time Temp Pulse Resp B/P B/P Pulse O2 O2 Flow FiO2 Mean Ox Delivery Rate 04/04 0807 164/88 04/04 0614 97.8 73 20 178/76 94 04/04 0549 178/70 04/03 2158 97.9 68 20 128/70 96 Room Air 04/03 1600 96 Room Air 04/03 1428 97 Room Air Room Air 04/03 1353 97.7 68 20 122/70 96 Room Air Intake & Output 04/04 1600 04/04 0800 04/04 0000 Intake Total 240 630 Output Total Balance 240 630 Intake, IV 130 Intake, Oral 240 500 Number 1 Bowel Movements Physical Exam General Appearance: Alert, Oriented X3, Cooperative, No Acute Distress Cardiovascular: Regular Rate, Normal S1, Normal S2, No Murmurs Lungs: Clear to Auscultation, Normal Air Movement Abdomen: Normal Bowel Sounds, Soft, No Tenderness, No Masses Extremities: No Clubbing, No Cyanosis, 2+ bilateral lower extremity pitting edema Current Medications: Current Medications Sig/Gricelda Start time Last Medication Dose Route Stop Time Status Admin Acetaminophen 650 MG ONCE ONE 04/04 1015 DC 04/04 PO 04/04 1016 1025 Albuterol Sulfate 3 ML Q4P PRN 04/02 2144 AC INH Alprazolam 0.25 MG BID PRN 03/31 2199 AC 04/03 PO 04/07 Budesonide/ 2 PUF BID 03/31 2199 AC 03/31 Formoterol Fumarate INH 2147 Ceftriaxone Sodium 1,000 MG 0100 04/01 0100 AC 04/04 IV 0001 Diclofenac Sodium 1 ROBERTO 4 TIMES/DAY 03/31 2199 AC TOP Duloxetine HCl 60 MG DAILY 04/01 1000 AC 04/04 PO 0855 Famotidine 20 MG DAILY 04/01 1000 AC 04/04 PO 0856 Furosemide 20 MG DAILY 04/04 1117 UNVr PO Gabapentin 300 MG BID 03/31 2199 AC 04/04 PO 0855 Guaifenesin 600 MG BID PRN 03/31 1815 AC PO Hydrocortisone 10 MG 1600 04/03 1600 AC 04/03 PO 1557 Hydrocortisone 20 MG 0800 04/03 0800 AC 04/04 PO 0855 Lactobacillus 1 CAP DAILY 04/01 1000 AC 04/04 Acidophilus PO 0855 Losartan Potassium 50 MG DAILY 03/31 1807 AC 04/04 PO 0549 Metronidazole 500 MG IQ8 04/01 1600 AC 04/04 N/A 1 UNIT IV 0855 Potassium Chloride 20 MEQ DAILY 04/05 1000 UNVr PO Potassium Chloride 20 MEQ 0745 04/04 0745 DC 04/04 PO 04/04 0746 0854 Thiamine HCl 100 MG DAILY 04/01 1000 AC 04/04 PO 0855 Vancomycin HCl 125 MG Q6 03/31 2359 AC 04/04 PO 0525 Warfarin Sodium 2 MG COUMADIN 1700 ONE 04/04 1700 UNVr PO 04/04 1701 Warfarin Sodium 2 MG COUMADIN 1700 ONE 04/03 1700 DC 04/03 PO 04/03 1701 1557 Last 24 Hrs of Lab/Javier Results Last 24 Hrs of Labs/Mics: Laboratory Tests 04/04/17 0655: PT 27.0 H, INR 2.60 H Assessment/Plan Assessment: 85 year old female from assisted living with [place] significant for non-oxygen dependent COPD, hypertension, congestive heart failure, chronic back pain, history of PE in the past on anticoagulation, history of C. difficile and fecal transplantation presented with two days of abdominal pain and diarrhea. Diverticulitis: Tolerated full liquid diet with limited intake, advance tonight Abdominal pain resolved Discussed with marine rigger-plan to continue PO Vancomycin 125mg Q6H for duration of antibiotic treatment for diverticulitis then resume suppressive therapy Continue IV ceftriaxone and metronidazole Plan to change to PO antibiotics tomorrow Repeat C. difficile negative h/o of pulmonary embolism: INR 2.44, Coumadin 2mg today Check daily PT/INR, dose coumadine CHF: HFpEF LVEF wnl, abnormal ventricular relaxation and mild diastolic dysfunction on previous echo Resume lasix 20mg daily, continue ACEi Pedro's disease: Follow up endocrinology recommendations in regard of management of Pedro disease 20mg hydrocortisone in AM and 10mg in PM Full liquid diet DVT ppx-on coumadin, INR therapeutic Full code Problem List: 1. Chronic diarrhea 2. CONGESTIVE HEART FAILURE 3. BILATERAL PULMONARY EMBOLI 4. Pedro's disease 5. Diverticulitis Pain Ratin Pain Location: n/a Pain Goal: Pain 4 or less Pain Plan: prn Tomorrow's Labs & Rationales: pt/inr, bep
[2017-04-04 08:07] VITALS: BP 164/88
--- NOTE | 2017-04-04 09:55 | PN- Att Addend ---
Attending Addendum Attending Brief Note Patient in bed complaining of a headache this morning, no loose bowel movements this morning BP slightly elevated this morning patient is afebrile with no major changes on physical INR 2.60 this morning we'll continue present IV antibiotics, advance the diet slowly. The patient out of bed in the chair Intake & Output 04/04 1600 04/04 0400 04/03 1600 04/03 0400 04/02 1600 04/02 0400 Intake Total 090 918 1931 1670 700 Output Total 1000 1100 700 300 Balance 240 630 410 -1100 970 400 Intake, IV 542 094 2216 700 Intake, Oral 240 500 500 Number 1 2 3 Bowel Movements Output, Urine 1000 1100 700 300 Patient 172 lb Weight Current Medications Sig/Gricelda Start time Last Medication Dose Route Stop Time Status Admin Albuterol Sulfate 3 ML Q4P PRN 04/02 2144 AC INH Alprazolam 0.25 MG BID PRN 03/31 2200 AC 04/03 PO 04/07 215 2053 Budesonide/ 2 PUF BID 03/31 2199 AC 03/31 Formoterol Fumarate INH 2147 Ceftriaxone Sodium 1,000 MG 0100 04/01 0100 AC 04/04 IV 0001 Diclofenac Sodium 1 ROBERTO 4 TIMES/DAY 03/31 2199 AC TOP Duloxetine HCl 60 MG DAILY 04/01 1000 AC 04/04 PO 0855 Famotidine 20 MG DAILY 04/01 1000 AC 04/04 PO 0856 Gabapentin 300 MG BID 03/31 2200 AC 04/04 PO 0855 Guaifenesin 600 MG BID PRN 03/31 1815 AC PO Hydrocortisone 10 MG 1600 04/03 1600 AC 04/03 PO 1557 Hydrocortisone 20 MG 0800 04/03 0800 AC 04/04 PO 0855 Lactobacillus 1 CAP DAILY 04/01 1000 AC 04/04 Acidophilus PO 0855 Losartan Potassium 50 MG DAILY 03/31 1807 AC 04/04 PO 0549 Metronidazole 500 MG IQ8 04/01 1600 AC 04/04 N/A 1 UNIT IV 0855 Potassium Chloride 20 MEQ 0745 04/04 0745 DC 04/04 PO 04/04 0746 0854 Thiamine HCl 100 MG DAILY 04/01 1000 AC 04/04 PO 0855 Vancomycin HCl 125 MG Q6 03/31 2359 AC 04/04 PO 0525 Warfarin Sodium 2 MG COUMADIN 1700 ONE 04/03 1700 DC 04/03 PO 04/03 1701 1557 Laboratory Tests 04/04/17 0655: PT 27.0 H, INR 2.60 H 04/03/17 0705: Anion Gap 9, Estimated GFR > 60, BUN/Creatinine Ratio 8.6, PT 25.2 H, INR 2.42 H 04/02/17 0920: Anion Gap 9, Estimated GFR > 60, BUN/Creatinine Ratio 10.0, Hemoglobin A1c 6.1 H, PT 25.4 H, INR 2.44 H, CBC w Diff NO MAN DIFF REQ, RBC 4.51, MCV 82.6, MCH 26.7 L, MCHC 32.3 L, RDW 15.9 H, MPV 7.9, Gran % 65.9, Lymphocytes % 23.1, Monocytes % 9.2, Eosinophils % 1.3, Basophils % 0.5, Absolute Granulocytes 4.0, Absolute Lymphocytes 1.4, Absolute Monocytes 0.6, Absolute Eosinophils 0.1, Absolute Basophils 0 Microbiology 04/02 162 STOOL: Clostridium difficile Toxin A & B - COMP Microbiology 04/02 162 STOOL: Clostridium difficile Toxin A & B - COMP Vital Signs Date Time Temp Pulse Resp B/P B/P Pulse O2 O2 Flow FiO2 Mean Ox Delivery Rate 04/04 0807 164/88 04/04 0614 97.8 73 20 178/76 94 04/04 0549 178/70 04/03 2158 97.9 68 20 128/70 96 Room Air 04/03 1600 96 Room Air 04/03 1428 97 Room Air Room Air 04/03 1353 97.7 68 20 122/70 96 Room Air
--- NOTE | 2017-04-04 13:02 | Discharge Summary ---
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 The patient had CT imaging done which showed uncomplicated acute diverticulitis of the sigmoid colon. The patient was made NPO and started on parenteral antibiotics with metronidazole and ceftriaxone. The patient's diarrhea persisted during her hospitalization with an average of approximately three loose bowel movements per day. The patient's stool was sent for C. difficile toxin and PCR testing were both negative. The patient's daily suppressive therapy with oral vancomycin was increased to the treatment dose 125mg PO every six hours during the duration of antibiotic treatment for acute diverticulitis. The patient was transitioned to oral antibiotics and medications. Acute Diverticulitis: Regular diet low fiber poor appetite No complaints of abdominal pain, 1 episode of diarrhea this morning Resume suppressive therapy with PO Vancomycin 125mg daily on discharge Discontinued ciprofloxacin and flagyl Repeat C. 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 Concern for colitis/diverticulitis. COMPARISON: CT abdomen/pelvis 05/28/2015. TECHNIQUE: Multidetector volumetric imaging was performed of the abdomen and pelvis following IV administration of 90 mL of Optiray 320 intravenous contrast. Sagittal and coronal reformatted images were obtained on the technologist's workstation. DLP: 522.34 mGy-cm FINDINGS: LUNG BASES: The visualized lung bases are unremarkable. LIVER, GALLBLADDER, AND BILIARY TREE: The liver is normal in size, shape, and attenuation. No focal hepatic lesion or biliary ductal dilatation is present. Cholelithiasis without evidence of cholecystitis. Common bile duct is normal. PANCREAS: Unremarkable. SPLEEN: Small hypodensities in the spleen are unchanged. ADRENAL GLANDS: Stable coarse calcifications in both adrenal glands. KIDNEYS AND URETERS: Stable appearance of both kidneys with multiple cysts in the lower pole left kidney. No renal calculi or hydronephrosis. No perinephric stranding. BLADDER: Partially collapsed, limiting evaluation. GASTROINTESTINAL TRACT: Moderate-sized hiatal hernia. Diverticulosis of the colon with a small amount of pericolonic inflammatory stranding surrounding the distal aspect of the sigmoid colon near the junction of the rectum and sigmoid colon. No pericolonic abscess or free fluid. Small duodenal diverticulum. The small and large bowel are otherwise unremarkable. The appendix is unremarkable. ABDOMINAL WALL: Stable fat-containing umbilical hernia with a wide neck. Stable fat-containing right inguinal hernia with a small amount of fluid. LYMPH NODES: Normal. VASCULAR: Atherosclerotic changes of the abdominal aorta and its branches. PELVIC VISCERA: The uterus is unremarkable. The ovaries are nonvisualized, likely atrophic. OSSEOUS STRUCTURES: Stable degenerative changes of the spine with mild compressive deformities of T12 and L1 remaining unchanged. IMPRESSION: Acute, uncomplicated diverticulitis of the sigmoid colon. Chronic findings, as above. Disposition Summary Disposition Principal Diagnosis: Acute diverticulitis Additional Diagnosis: COPD HFpEF Recurrent C. diff s/p fecal transplant Discharge Disposition: home health services Discharge Instructions General Discharge Information Code Status: Full Code Patient's Diet: Regular diet-low fiber Patient's Activity: Assistance required with home physical therapy Follow-Up Instructions/Appts: Please follow up with your primary care physician and media assistant within two weeks of discharge. Medications at Discharge Discharge Medications: Continue taking these medications: Multivitamin (Multiple Vitamins) 1 EACH TABLET 1 Tablet ORAL DAILY Comments: NOT GIVEN IN HOSPITAL Calcium Carbonate/Vitamin D3 (Calcium + Vitamin D Tablet) 600 MG-200 TABLET 1 Tablet ORAL TWICE DAILY Comments: NOT GIVEN IN HOSPITAL Famotidine (Famotidine) 20 MG TABLET 1 Tablet ORAL DAILY Comments: Last Taken: 04/10/17 Time: 0930AM Fluticasone/Salmeterol (Advair 250-50 Diskus) 250 MCG-50 MCG/DOSE BLST.W.DEV 1 Puff Inhale through mouth TWICE DAILY Comments: NOT GIVEN IN HOSPITAL Valsartan (Diovan) 160 MG TABLET 1 Tablet ORAL DAILY Comments: LOSART[place] GIVEN Last Taken: 04/10/17 Time: 0930AM Gabapentin (Neurontin) 300 MG CAPSULE 1 Capsule ORAL TWICE DAILY Comments: Last Taken: 04/10/17 Time: 0930AM Diclofenac Sodium (Voltaren) 1 % GEL..GRAM. 1 Gram On the skin 4 TIMES A DAY Instructions: apply to affected area(s) Comments: NOT GIVEN IN HOSPITAL Hydrocortisone (Cortef) 20 MG TABLET 1 Tablet ORAL Every Morning Comments: Last Taken: 04/10/17 Time: 0930AM Hydrocortisone (Cortef) 10 MG TABLET 1 Tablet ORAL TAKE AT BEDTIME Comments: Last Taken: 04/09/17 Time: 2200PM Lactobacillus Acidophilus (Acidophilus) 1 EACH CAPSULE 1 Capsule ORAL DAILY Comments: Last Taken: 04/10/17 Time: 0930AM Alprazolam (Alprazolam) 0.25 MG TABLET 1 Tablet ORAL 2 x Daily as needed as needed for ANXIETY Comments: Last Taken: 04/10/17 Time: 0930AM Wheat Dextrin (Benefiber) (Unknown Strength) POWDER 1 Tablespoonful ORAL DAILY Comments: NOT GIVEN IN HOSPITAL Furosemide (Lasix) 20 MG TABLET 1 Tablet ORAL DAILY Comments: Last Taken: 04/10/17 Time: 0930AM Thiamine HCl (Thiamine HCl) 100 MG TABLET 1 Tablet ORAL DAILY Comments: Last Taken: 04/10/17 Time: 0930 Oxycodone HCl (Oxycontin) 10 MG TAB.ER.12H 10 Milligram ORAL TWICE DAILY Comments: NOT GIVEN IN HOSPITAL Vancomycin HCl (Vancocin HCl) 125 MG CAPSULE 125 Milligram ORAL DAILY Comments: Last Taken: 04/10/17 Time: 0930AM Duloxetine HCl (Cymbalta) 60 MG CAPSULE.DR 1 Capsule ORAL DAILY Comments: Last Taken: 04/10/17 Time: 0930AM Folic Acid (Folic Acid) 1 MG TABLET 1 Tablet ORAL DAILY Qty = 30 Comments: NOT GIVEN IN HOSPITAL Warfarin Sodium (Coumadin) 2 MG TABLET 2 Tablet ORAL 5 PM Days = 30 Instructions: PLEASE DO NOT GIVE UNITL INR IS CHECKED AND IS BELOW 3. Comments: Last Taken: 04/09/17 Time: 1700PM Guaifenesin (Mucinex) 600 MG TAB.ER.12H 1 Tablet ORAL TWICE DAILY as needed for MUCUS Comments: NOT GIVEN IN HOSPITAL Copies To: Junaid DA SILVA,Timo Attending MD Review Statement Documenting Attending: Timo Quiroga MD
[2017-04-04 14:15] VITALS: BP 140/60
[2017-04-04 21:29] VITALS: BP 140/62
[2017-04-05 06:28] VITALS: BP 138/64
--- NOTE | 2017-04-05 08:28 | PN- Housestaff ---
Subjective Follow-up For: acute diverticulitis Subjective: poor appetite on advanced diet feeling very fatigued still having diarrhea, c diff negative Review of Systems Constitutional: Reports: see HPI. Objective Last 24 Hrs of Vital Signs/I&O Vital Signs Date Time Temp Pulse Resp B/P B/P Pulse O2 O2 Flow FiO2 Mean Ox Delivery Rate 04/05 0915 77 138/64 04/05 0628 98.4 77 20 138/64 95 Room Air 04/04 2129 98.6 80 19 140/62 96 Room Air 04/04 2045 95 Room Air 04/04 1415 98.6 84 18 140/60 95 Room Air 04/04 1313 96 Room Air Intake & Output 04/05 1600 04/05 0800 04/05 0000 Intake Total 480 Output Total 275 300 Balance -275 180 Intake, Oral 480 Number 1 1 1 Bowel Movements Output, Urine 275 300 Physical Exam General Appearance: Alert, Oriented X3, Cooperative, No Acute Distress Cardiovascular: Regular Rate, Normal S1, Normal S2, No Murmurs Lungs: Clear to Auscultation, Normal Air Movement Abdomen: Normal Bowel Sounds, Soft, No Tenderness, No Masses Extremities: No Clubbing, No Cyanosis, Normal Pulses, 2+ pitting edema bilateral lower extremities Current Medications: Current Medications Sig/Gricelda Start time Last Medication Dose Route Stop Time Status Admin Acetaminophen 325 MG ONCE ONE 04/05 0600 DC 04/05 PO 04/05 0601 0609 Albuterol Sulfate 3 ML Q4P PRN 04/02 214 AC INH Alprazolam 0.25 MG BID PRN 03/310 AC 04/04 PO 04/07 2159 2141 Budesonide/ 2 PUF BID 03/31 2199 AC 03/31 Formoterol Fumarate INH 2147 Ceftriaxone Sodium 1,000 MG 0100 04/01 0100 DC 04/05 IV 0014 Ciprofloxacin 500 MG BID 04/05 1000 AC PO 04/09 0959 Diclofenac Sodium 1 ROBERTO 4 TIMES/DAY 03/31 2199 AC TOP Duloxetine HCl 60 MG DAILY 04/01 1000 AC 04/05 PO 0916 Famotidine 20 MG DAILY 04/01 1000 AC 04/05 PO 0919 Furosemide 20 MG DAILY 04/04 1117 AC 04/05 PO 0917 Gabapentin 300 MG BID 03/31 2200 AC 04/05 PO 0918 Guaifenesin 600 MG BID PRN 03/31 1815 AC PO Hydrocortisone 10 MG 1600 04/03 1600 AC 04/04 PO 1719 Hydrocortisone 20 MG 0800 04/03 0800 AC 04/05 PO 0913 Lactobacillus 1 CAP DAILY 04/01 1000 AC 04/05 Acidophilus PO 0919 Losartan Potassium 50 MG DAILY 03/31 1807 AC 04/05 PO 0915 Metronidazole 500 MG Q8 04/05 1400 AC PO Metronidazole 500 MG IQ8 04/01 1600 AC 04/05 N/A 1 UNIT IV 04/05 1500 0903 Potassium Chloride 20 MEQ DAILY 04/05 1000 AC 04/05 PO 0916 Thiamine HCl 100 MG DAILY 04/01 1000 AC 04/05 PO 0921 Vancomycin HCl 125 MG Q6 03/31 2359 AC 04/05 PO 0609 Warfarin Sodium 2 MG COUMADIN 1700 04/04 1700 DC 04/04 PO 04/04 2359 1719 Last 24 Hrs of Lab/Javier Results Last 24 Hrs of Labs/Mics: Laboratory Tests 04/05/17 0710: Anion Gap 8, Estimated GFR > 60, BUN/Creatinine Ratio 11.4, PT 26.8 H, INR 2.58 H Assessment/Plan Assessment: 85 year old female from assisted living with [facility] significant for non-oxygen dependent COPD, hypertension, congestive heart failure, chronic back pain, history of PE in the past on anticoagulation, history of C. difficile and fecal transplantation presented with two days of abdominal pain and diarrhea. Diverticulitis: Regular diet Abdominal pain resolved Discussed with commercial real estate paralegal-plan to continue PO Vancomycin 125mg Q6H for duration of antibiotic treatment for diverticulitis then resume suppressive therapy Change to PO antibiotics ciprofloxacin and flagyl for total 10-14 day course Repeat C. difficile negative h/o of pulmonary embolism: INR 2.58, Coumadin 2mg today Check daily PT/INR, dose coumadine CHF: HFpEF LVEF wnl, abnormal ventricular relaxation and mild diastolic dysfunction on previous echo Resume lasix 20mg daily, continue ACEi Pedro's disease: Follow up endocrinology recommendations in regard of management of [place] disease 20mg hydrocortisone in AM and 10mg in PM Regular diet diet DVT ppx-on coumadin, INR therapeutic Full code Dispo pendiing PT evaluation Problem List: 1. Pedro's disease 2. BILATERAL PULMONARY EMBOLI 3. CONGESTIVE HEART FAILURE 4. HISTORY - C-DIFF COLITIS 5. Acute diverticulitis Pain Ratin Pain Location: n/a Pain Goal: Pain 4 or less Pain Plan: prn Tomorrow's Labs & Rationales: bep, pt/inr
[2017-04-05 08:29] LABS: PT 26.8 SEC (9.4-12.5)
--- NOTE | 2017-04-05 11:29 | PN- Endocrinology ---
Assessment/Plan Assessment: 85-year-old woman from assisted living with past medical history significant for non-oxygen dependent COPD, hypertension, congestive heart failure, chronic back pain, history of PE in the past on anticoagulation, history of C. difficile, and Rand[place]'s disesae diagnosed by Dr. Pierre approximately 5 years ago and has been on Hydrocortisone 20 mg am and 10 mg pm, came with chief complaint of 2 days of diarrhea and generalize weakness. She was diagnosed with diverticulitis. She was put on stress dose of steroid initially. She was started on a diet and Hydrocortisone was changed to her usual dosage-- Hydrocortisone 20 mg am and 10 mg pm. Her vital signs have been stable; HbA1c was 6.1%. Her FSGs wereb 76, 93, 138 and 185. Plan: continue the current Hydrocortisone replacement-- 20 mg po at 8 am and 10 mg at 4 pm. replete K; monitor electrolytes. will follow. Subjective Subjective: She feels better this morning. Objective Last 24 Hrs of Vital Signs/I&O Vital Signs Date Time Temp Pulse Resp B/P B/P Pulse O2 O2 Flow FiO2 Mean Ox Delivery Rate 04/05 0915 77 138/64 04/05 0628 98.4 77 20 138/64 95 Room Air 04/04 2129 98.6 80 19 140/62 96 Room Air 04/04 2045 95 Room Air 04/04 1415 98.6 84 18 140/60 95 Room Air 04/04 1313 96 Room Air Intake & Output 04/05 1600 04/05 0800 04/05 0000 Intake Total 480 Output Total 275 300 Balance -275 180 Intake, Oral 480 Number 1 1 1 Bowel Movements Output, Urine 275 300 Results Pertinent Lab/Javier Results: Laboratory Tests 04/05 0710 Chemistry Sodium (137 - 145 mmol/L) 143 Potassium (3.5 - 5.1 mmol/L) 3.3 L Chloride (98 - 107 mmol/L) 108 H Carbon Dioxide (22 - 30 mmol/L) 26 Anion Gap (5 - 16) 8 BUN (7 - 17 mg/dL) 8 Creatinine (0.5 - 1.0 mg/dL) 0.7 Estimated GFR (>60 ml/min) > 60 BUN/Creatinine Ratio (7 - 25 %) 11.4 Coagulation PT (9.4 - 12.5 SEC) 26.8 H INR (0.90 - 1.19) 2.58 H
--- NOTE | 2017-04-05 11:59 | PN- Att Addend ---
Attending Addendum Attending Brief Note Patient still weak, still having loose bowel movements very poor appetite despite having advanced the diet Vital signs are stable no fever or no major changes on physical. Was switched to by mouth antibiotics. Encouraged patient to eat and hopefully stable start disposition plans in the morning to return to assisted living. Intake & Output 04/05 1600 04/05 0400 04/04 1600 04/04 0400 04/03 1600 04/03 0400 Intake Total 480 9438 440 5233 Output Total 275 776 972 8070 1100 Balance -275 180 640 630 410 -1100 Intake, IV 100 130 910 Intake, Oral 480 1040 500 500 Number 2 1 1 1 2 Bowel Movements Output, Urine 275 393 146 2204 1100 Patient 172 lb Weight Current Medications Sig/Gricelda Start time Last Medication Dose Route Stop Time Status Admin Acetaminophen 325 MG ONCE ONE 04/05 0600 DC 04/05 PO 04/05 0601 0609 Albuterol Sulfate 3 ML Q4P PRN 04/02 2145 AC INH Alprazolam 0.25 MG BID PRN 03/31 2200 AC 04/04 PO 04/07 2159 2141 Budesonide/ 2 PUF BID 03/31 2200 AC 03/31 Formoterol Fumarate INH 2147 Ceftriaxone Sodium 1,000 MG 0100 04/01 0100 DC 04/05 IV 0014 Ciprofloxacin 500 MG BID 04/05 1000 AC PO 04/09 0959 Diclofenac Sodium 1 ROBERTO 4 TIMES/DAY 03/31 2200 AC TOP Duloxetine HCl 60 MG DAILY 04/01 1000 AC 04/05 PO 0916 Famotidine 20 MG DAILY 04/01 1000 AC 04/05 PO 0919 Furosemide 20 MG DAILY 04/04 1117 AC 04/05 PO 0917 Gabapentin 300 MG BID 03/31 2200 AC 04/05 PO 0918 Guaifenesin 600 MG BID PRN 03/31 1815 AC PO Hydrocortisone 10 MG 1600 04/03 1600 AC 04/04 PO 1719 Hydrocortisone 20 MG 0800 04/03 0800 AC 04/05 PO 0913 Lactobacillus 1 CAP DAILY 04/01 1000 AC 04/05 Acidophilus PO 0919 Losartan Potassium 50 MG DAILY 03/31 1807 AC 04/05 PO 0915 Metronidazole 500 MG Q8 04/05 1400 AC PO Metronidazole 500 MG IQ8 04/01 1600 AC 04/05 N/A 1 UNIT IV 04/05 1500 0903 Potassium Chloride 40 MEQ ONCE ONE 04/05 1145 DC PO 04/05 1146 Potassium Chloride 20 MEQ DAILY 04/05 1000 AC 04/05 PO 0916 Thiamine HCl 100 MG DAILY 04/01 1000 AC 04/05 PO 0921 Vancomycin HCl 125 MG Q6 03/31 2359 AC 04/05 PO 0609 Warfarin Sodium 2 MG COUMADIN 1700 ONE 04/05 1700 AC PO 04/05 1701 Warfarin Sodium 2 MG COUMADIN 1700 04/04 1700 DC 04/04 PO 04/04 235 1719 Laboratory Tests 04/05/17 0710: Anion Gap 8, Estimated GFR > 60, BUN/Creatinine Ratio 11.4, PT 26.8 H, INR 2.58 H 04/04/17 0655: PT 27.0 H, INR 2.60 H 04/03/17 0705: Anion Gap 9, Estimated GFR > 60, BUN/Creatinine Ratio 8.6, PT 25.2 H, INR 2.42 H Microbiology 04/02 1620 STOOL: Clostridium difficile Toxin A & B - COMP Microbiology 04/02 162 STOOL: Clostridium difficile Toxin A & B - COMP Vital Signs Date Time Temp Pulse Resp B/P B/P Pulse O2 O2 Flow FiO2 Mean Ox Delivery Rate 04/05 914 77 138/64 04/05 0628 98.4 77 20 138/64 95 Room Air 04/04 2129 98.6 80 19 140/62 96 Room Air 04/04 2045 95 Room Air 04/04 1415 98.6 84 18 140/60 95 Room Air 04/04 1313 96 Room Air
[2017-04-05 14:46] VITALS: BP 152/76
[2017-04-05 22:21] VITALS: BP 160/90
[2017-04-06 06:46] VITALS: BP 142/78
[2017-04-06 08:19] LABS: PT 28.2 SEC (9.4-12.5)
--- NOTE | 2017-04-06 08:46 | PN- Housestaff ---
Subjective Follow-up For: acute diverticulitis Subjective: patient says she is not feeling well, very tired, didnt sleep well overnight reports 2-3 episodes of diarrhea overnight Review of Systems Constitutional: Reports: see HPI. Objective Last 24 Hrs of Vital Signs/I&O Vital Signs Date Time Temp Pulse Resp B/P B/P Pulse O2 O2 Flow FiO2 Mean Ox Delivery Rate 04/06 0646 98.1 80 20 142/78 94 04/05 2221 98.5 70 20 160/90 96 Room Air 04/05 1446 96.0 76 20 152/76 96 Room Air 04/05 1252 95 Room Air 04/05 0915 77 138/64 Intake & Output 04/06 1600 04/06 0800 04/06 0000 Intake Total 240 480 Output Total 200 450 Balance 40 30 Intake, Oral 240 480 Number 1 1 Bowel Movements Output, Urine 200 450 Physical Exam General Appearance: Alert, Oriented X3, Cooperative, No Acute Distress Cardiovascular: Regular Rate, Normal S1, Normal S2, No Murmurs Lungs: Clear to Auscultation, Normal Air Movement Abdomen: Normal Bowel Sounds, Soft, No Masses, tender to palpation LLQ, no guarding or rebound tenderness Extremities: No Clubbing, No Cyanosis, No Edema, Normal Pulses Current Medications: Current Medications Sig/Gricelda Start time Last Medication Dose Route Stop Time Status Admin Acetaminophen 325 MG ONCE ONE 04/06 0500 DC 04/06 PO 04/06 0501 0456 Acetaminophen 325 MG ONCE ONE 04/05 2315 DC 04/05 PO 04/05 2316 2313 Albuterol Sulfate 3 ML Q4P PRN 04/02 2144 DC INH Alprazolam 0.25 MG BID PRN 03/31 2199 AC 04/05 PO 04/07 Budesonide/ 2 PUF BID 03/31 2199 AC 03/31 Formoterol Fumarate INH 2147 Ciprofloxacin 500 MG BID 04/05 1000 AC 04/05 PO 04/09 0959 2049 Diclofenac Sodium 1 ROBERTO 4 TIMES/DAY 03/31 2199 AC TOP Duloxetine HCl 60 MG DAILY 04/01 1000 AC 04/06 PO 0846 Famotidine 20 MG DAILY 04/01 1000 AC 04/06 PO 0848 Furosemide 20 MG DAILY 04/04 1117 AC 04/06 PO 0846 Gabapentin 300 MG BID 03/31 2199 AC 04/06 PO 0846 Guaifenesin 600 MG BID PRN 03/31 1815 AC PO Hydrocortisone 10 MG 1600 04/03 1600 AC 04/05 PO 1704 Hydrocortisone 20 MG 0800 04/03 0800 AC 04/06 PO 0846 Lactobacillus 1 CAP DAILY 04/01 1000 AC 04/06 Acidophilus PO 0846 Losartan Potassium 50 MG DAILY 03/31 1807 AC 04/06 PO 0846 Metronidazole 500 MG Q8 04/05 1400 AC 04/06 PO 0455 Metronidazole 500 MG IQ8 04/01 1600 DC 04/05 N/A 1 UNIT IV 04/05 1500 0903 Potassium Chloride 40 MEQ ONCE ONE 04/05 1630 DC 04/05 PO 04/05 1631 1704 Potassium Chloride 40 MEQ ONCE ONE 04/05 1145 DC 04/05 PO 04/05 1146 1207 Potassium Chloride 20 MEQ DAILY 04/05 1000 AC 04/06 PO 0845 Thiamine HCl 100 MG DAILY 04/01 1000 AC 04/06 PO 0848 Vancomycin HCl 125 MG Q6 03/31 2359 AC 04/06 PO 0456 Warfarin Sodium 2 MG COUMADIN 1700 ONE 04/05 1700 DC 04/05 PO 04/05 1701 1704 Last 24 Hrs of Lab/Javier Results Last 24 Hrs of Labs/Mics: Laboratory Tests 04/06/17 0605: Anion Gap 11, Estimated GFR > 60, BUN/Creatinine Ratio 13.8, PT 28.2 H, INR 2.71 H Assessment/Plan Assessment: 85 year old female from assisted living with [facility] significant for non-oxygen dependent COPD, hypertension, congestive heart failure, chronic back pain, history of PE in the past on anticoagulation, history of C. difficile and fecal transplantation presented with two days of abdominal pain and diarrhea. Acute Diverticulitis: Regular diet low fiber poor appetite Complaining of some mild LLQ abdominal pain today Discussed with regulatory law specialist-plan to continue PO Vancomycin 125mg Q6H for duration of antibiotic treatment for diverticulitis then resume suppressive therapy Continue PO antibiotics ciprofloxacin and flagyl for total 10-14 day course Repeat C. difficile negative Consider adding probiotic h/o of pulmonary embolism: INR 2.71, Coumadin 2mg today Check daily PT/INR CHF: HFpEF LVEF wnl, abnormal ventricular relaxation and mild diastolic dysfunction on previous echo Resume lasix 20mg daily, continue ACEi [place]'s disease: Follow up endocrinology recommendations in regard of management of Pedro disease 20mg hydrocortisone in AM and 10mg in PM Regular diet low fiber DVT ppx-on coumadin, INR therapeutic Full code PT evaluation-home PT Problem List: 1. Pedro's disease 2. BILATERAL PULMONARY EMBOLI 3. Acute diverticulitis Pain Ratin Pain Location: LLQ Pain Goal: Pain 4 or less Pain Plan: prn Tomorrow's Labs & Rationales: pt/inr
--- NOTE | 2017-04-06 11:09 | PN- Att Addend ---
Attending Addendum Attending Brief Note Still having diarrhea and abdominal cramps, she ate "a muffin for breakfast" otherwise will poor appetite is still very weak Vital signs are stable she has no fever. No other changes on physical Edward monitor her intake today monitor her bowels and pain. Is stable start disposition plans tomorrow to return to her assisted living. Intake & Output 04/06 1600 04/06 0400 04/05 1600 04/05 0400 04/04 1600 04/04 0400 Intake Total 240 480 452 816 1277 630 Output Total 200 450 875 300 500 Balance 40 30 -65 180 640 630 Intake, IV 10 100 130 Intake, Oral 240 480 274 973 6902 500 Number 2 1 2 1 1 1 Bowel Movements Output, Urine 200 450 875 300 500 Current Medications Sig/Gricelda Start time Last Medication Dose Route Stop Time Status Admin Acetaminophen 325 MG ONCE ONE 04/06 0500 DC 04/06 PO 04/06 0501 0456 Acetaminophen 325 MG ONCE ONE 04/05 2315 DC 04/05 PO 04/05 2316 2313 Albuterol Sulfate 3 ML Q4P PRN 04/02 2145 DC INH Alprazolam 0.25 MG BID PRN 03/31 2200 AC 04/06 PO 04/07 2159 1102 Budesonide/ 2 PUF BID 03/31 2200 AC 03/31 Formoterol Fumarate INH 2147 Ciprofloxacin 500 MG BID 04/05 1000 AC 04/06 PO 04/09 0959 1102 Diclofenac Sodium 1 ROBERTO 4 TIMES/DAY 03/31 2200 AC TOP Duloxetine HCl 60 MG DAILY 04/01 1000 AC 04/06 PO 0846 Famotidine 20 MG DAILY 04/01 1000 AC 04/06 PO 0848 Furosemide 20 MG DAILY 04/04 1117 AC 04/06 PO 0846 Gabapentin 300 MG BID 03/31 2200 AC 04/06 PO 0846 Guaifenesin 600 MG BID PRN 03/31 1815 AC PO Hydrocortisone 10 MG 1600 04/03 1600 AC 04/05 PO 1704 Hydrocortisone 20 MG 0800 04/03 0800 AC 04/06 PO 0846 Lactobacillus 1 CAP DAILY 04/01 1000 AC 04/06 Acidophilus PO 0846 Losartan Potassium 50 MG DAILY 03/31 1807 AC 04/06 PO 0846 Metronidazole 500 MG Q8 04/05 1400 AC 04/06 PO 0455 Metronidazole 500 MG IQ8 02/11 1600 DC 04/05 N/A 1 UNIT IV 04/05 1500 0903 Potassium Chloride 40 MEQ ONCE ONE 04/05 1630 DC 04/05 PO 04/05 1631 1704 Potassium Chloride 40 MEQ ONCE ONE 04/05 1145 DC 04/05 PO 04/05 1146 1207 Potassium Chloride 20 MEQ DAILY 04/05 1000 AC 04/06 PO 0845 Thiamine HCl 100 MG DAILY 04/01 1000 AC 04/06 PO 0848 Vancomycin HCl 125 MG Q6 03/31 2359 AC 04/06 PO 0456 Warfarin Sodium 2 MG COUMADIN 1700 ONE 04/06 1700 AC PO 04/06 1701 Warfarin Sodium 2 MG COUMADIN 1700 ONE 04/05 1700 DC 04/05 PO 04/05 1701 1704 Laboratory Tests 04/06/17 0605: Anion Gap 11, Estimated GFR > 60, BUN/Creatinine Ratio 13.8, PT 28.2 H, INR 2.71 H 04/05/17 0710: Anion Gap 8, Estimated GFR > 60, BUN/Creatinine Ratio 11.4, PT 26.8 H, INR 2.58 H 04/04/17 0655: PT 27.0 H, INR 2.60 H Vital Signs Date Time Temp Pulse Resp B/P B/P Pulse O2 O2 Flow FiO2 Mean Ox Delivery Rate 04/06 0646 98.1 80 20 142/78 94 04/05 2221 98.5 70 20 160/90 96 Room Air 04/05 1446 96.0 76 20 152/76 96 Room Air 04/05 1252 95 Room Air
[2017-04-06 13:58] VITALS: BP 130/80
--- NOTE | 2017-04-06 17:03 | Patient Discharge Instructions ---
Discharge Instructions General Discharge Information You were seen/treated for: ACUTE DIVERTICULITIS Special Instructions: Please follow up with your primary care physician and executive community planning within two weeks of discharge. Please return to the hospital for significant abdominal pain, nausea, vomiting, fever, and worsening diarrhea. Acute Coronary Syndrome Inclusion Criteria At DC or during hospital stay patient has or had the following: ACS DIAGNOSIS No Discharge Core Measures Meds if any: Prescribed or Continued at Discharge Meds if any: NOT Prescribed or Continued at Discharge Congestive Heart Failure Inclusion Criteria At DC or during hospital stay patient has or had the following: CHF DIAGNOSIS No Discharge Core Measures Meds if any: Prescribed or Continued at Discharge Meds if any: NOT Prescribed or Continued at Discharge Cerebrovascular accident Inclusion Criteria At DC or during hospital stay patient has or had the following: CVA/TIA Diagnosis No Discharge Core Measures Meds if any: Prescribed or Continued at Discharge Meds if any: NOT Prescribed or Continued at Discharge Venous thromboembolism Inclusion Criteria VTE Diagnosis No VTE Type NONE VTE Confirmed by (Test) NONE Discharge Core Measures - Per Current guidelines, there needs to be overlap - treatment for the first 5 days of Warfarin therapy. - If discharged on Warfarin prior to 5 days of - overlap therapy, the patient will need to be - assessed for post discharge needs including - *Post discharge parental anticoagulation - *Warfarin and/or parental anticoagulation education - *Follow up date to check INR post discharge At least 5 days overlap therapy as Inpatient No Meds if any: Prescribed or Continued at Discharge Note: Overlap Therapy is Warfarin and Anticoagulant Meds if any: NOT Prescribed or Continued at Discharge
[2017-04-06] MEDS ORDERED: FLAGYL500 MG PO (17:04)
[2017-04-06] MEDS ORDERED: CIPRO500 M1 PO (17:04)
[2017-04-06 21:38] VITALS: BP 140/74
[2017-04-07 06:20] VITALS: BP 164/86
[2017-04-07 07:06] VITALS: BP 144/72
[2017-04-07 08:21] LABS: PT 27.2 SEC (9.4-12.5)
--- NOTE | 2017-04-07 09:19 | PN- Housestaff ---
Subjective Follow-up For: DIVERTICULITIS DIARRHEA Subjective: Seen and examined at bedside. Still endorses diarrhea, but mjuch improved compared to prior days. Afebrile, denies sob,cp/palpitation or abdominal pain. Review of Systems Constitutional: Reports: see HPI. Objective Last 24 Hrs of Vital Signs/I&O Vital Signs Date Time Temp Pulse Resp B/P B/P Pulse O2 O2 Flow FiO2 Mean Ox Delivery Rate 04/07 1508 97.9 87 20 120/70 95 Room Air 04/07 0919 78 142/82 04/07 0706 144/72 04/07 0620 98.5 80 20 164/86 95 04/06 2138 97.8 76 18 140/74 95 Room Air Intake & Output 04/07 1600 04/07 0800 04/07 0000 Intake Total 600 250 450 Output Total 400 250 300 Balance 200 0 150 Intake, Oral 600 250 450 Number 1 1 1 Bowel Movements Output, Urine 400 250 300 Physical Exam General Appearance: Alert, Oriented X3, Cooperative Other Physical Findings: Cardiovascular: Regular Rate, Normal S1, Normal S2, No Murmurs Lungs: Clear to Auscultation, Normal Air Movement Abdomen: Normal Bowel Sounds, Soft, No Masses, tender to palpation LLQ, no guarding or rebound tenderness Extremities: No Clubbing, No Cyanosis, No Edema, Normal Pulses Current Medications: Current Medications Sig/Gricelda Start time Last Medication Dose Route Stop Time Status Admin Acetaminophen 500 MG Q6P PRN 04/07 0945 AC 04/07 PO 1030 Alprazolam 0.25 MG BID PRN 03/31 2200 AC 04/07 PO 04/07 2159 1207 Ciprofloxacin 500 MG BID 04/05 1000 AC 04/07 PO 04/09 0959 0919 Diclofenac Sodium 1 ROBERTO 4 TIMES/DAY 03/31 2199 AC 04/07 TOP 1752 Duloxetine HCl 60 MG DAILY 04/01 1000 AC 04/07 PO 0919 Famotidine 20 MG DAILY 04/01 1000 AC 04/07 PO 0919 Furosemide 20 MG DAILY 04/04 1117 AC 04/07 PO 0919 Gabapentin 300 MG BID 03/31 220 AC 04/07 PO 0919 Guaifenesin 600 MG BID PRN 03/31 1815 AC PO Hydrocortisone 10 MG 1600 04/03 1600 AC 04/07 PO 1600 Hydrocortisone 20 MG 0800 04/03 0800 AC 04/07 PO 0800 Ibuprofen 600 MG ONCE ONE 04/07 0445 DC 04/07 PO 04/07 0446 0456 Lactobacillus 1 CAP DAILY 04/01 1000 AC 04/07 Acidophilus PO 0919 Losartan Potassium 50 MG DAILY 03/31 1807 AC 04/07 PO 0919 Metronidazole 500 MG Q8 04/05 1400 AC 04/07 PO 1404 Potassium Chloride 20 MEQ DAILY 04/05 1000 AC 04/07 PO 0919 Thiamine HCl 100 MG DAILY 04/01 1000 AC 04/07 PO 0919 Vancomycin HCl 125 MG Q6 03/31 2359 AC 04/07 PO 1751 Warfarin Sodium 2.5 MG COUMADIN 1700 ONE 04/07 1700 DC 04/07 PO 04/07 1701 1750 Last 24 Hrs of Lab/Javier Results Last 24 Hrs of Labs/Mics: Laboratory Tests 04/07/17 0710: Anion Gap 8, Estimated GFR > 60, BUN/Creatinine Ratio 15.7, PT 27.2 H, INR 2.62 H Assessment/Plan Assessment: 85 year old female from assisted living with [facility] significant for non-oxygen dependent COPD, hypertension, congestive heart failure, chronic back pain, history of PE in the past on anticoagulation, history of C. difficile and fecal transplantation presented with two days of abdominal pain and diarrhea. Acute Diverticulitis: continue low fiber diet, still poor appetite Complaining of diarrhea (chronic) continue PO Vancomycin 125mg Q6H for duration of antibiotic treatment for diverticulitis then will resume suppressive therapy Continue PO antibiotics ciprofloxacin and flagyl for total 10-14 day course Repeat C. difficile negative Consider adding probiotic h/o of pulmonary embolism: INR 2.52, dose Coumadin 2.5 mg today Check daily PT/INR CHF: HFpEF LVEF wnl, abnormal ventricular relaxation and mild diastolic dysfunction on previous echo Resumed lasix 20mg daily, continue ACEi Pedro's disease: Follow up endocrinology recommendations in regard of management of [place] disease 20mg hydrocortisone in AM and 10mg in PM Regular diet low fiber DVT ppx-on coumadin, INR therapeutic Full code PT evaluation-home PT Problem List: 1. Acute diverticulitis Pain Ratin Pain Location: none Pain Goal: Remain pain free Pain Plan: per pathway Tomorrow's Labs & Rationales: cbc bep
[2017-04-07 15:08] VITALS: BP 120/70
--- NOTE | 2017-04-07 19:20 | PN- Pulmonary ---
Subjective HPI/Critical Care Issues: Still has diarrhea diverticulitis in the colon Objective Current Medications: Current Medications Sig/Gricelda Start time Last Medication Dose Route Stop Time Status Admin Acetaminophen 500 MG Q6P PRN 04/07 0945 AC 04/07 PO 1030 Alprazolam 0.25 MG BID PRN 03/31 2200 AC 04/07 PO 04/07 2159 1207 Ciprofloxacin 500 MG BID 04/05 1000 AC 04/07 PO 04/09 0959 0919 Diclofenac Sodium 1 ROBERTO 4 TIMES/DAY 03/31 2200 AC 04/07 TOP 1752 Duloxetine HCl 60 MG DAILY 04/01 1000 AC 04/07 PO 0919 Famotidine 20 MG DAILY 04/01 1000 AC 04/07 PO 0919 Furosemide 20 MG DAILY 04/04 1117 AC 04/07 PO 0919 Gabapentin 300 MG BID 03/31 2200 AC 04/07 PO 0919 Guaifenesin 600 MG BID PRN 03/31 1815 AC PO Hydrocortisone 10 MG 1600 04/03 1600 AC 04/07 PO 1600 Hydrocortisone 20 MG 0800 04/03 0800 AC 04/07 PO 0800 Ibuprofen 600 MG ONCE ONE 04/07 0445 DC 04/07 PO 04/07 0446 0456 Lactobacillus 1 CAP DAILY 04/01 1000 AC 04/07 Acidophilus PO 0919 Losartan Potassium 50 MG DAILY 03/31 1807 AC 04/07 PO 0919 Metronidazole 500 MG Q8 04/05 1400 AC 04/07 PO 1404 Potassium Chloride 20 MEQ DAILY 04/05 1000 AC 04/07 PO 0919 Thiamine HCl 100 MG DAILY 04/01 1000 AC 04/07 PO 0919 Vancomycin HCl 125 MG Q6 03/31 2359 AC 04/07 PO 1751 Warfarin Sodium 2.5 MG COUMADIN 1700 ONE 04/07 1700 DC 04/07 PO 04/07 1701 1750 Vital Signs & I&O Last 24 Hrs of Vitals and I&O: Vital Signs Date Time Temp Pulse Resp B/P B/P Pulse O2 O2 Flow FiO2 Mean Ox Delivery Rate 04/07 1508 97.9 87 20 120/70 95 Room Air 04/07 0919 78 142/82 04/07 0706 144/72 04/07 0620 98.5 80 20 164/86 95 04/06 2138 97.8 76 18 140/74 95 Room Air Intake & Output 04/07 1600 04/07 0800 04/07 0000 Intake Total 600 250 450 Output Total 400 250 300 Balance 200 0 150 Intake, Oral 600 250 450 Number 1 1 1 Bowel Movements Output, Urine 400 250 300 Impression/Plan Impression/Plan Impression/Plan: 85 year old female from assisted living with [facility] significant for non-oxygen dependent COPD, hypertension, congestive heart failure, chronic back pain, history of PE in the past on anticoagulation, history of C. difficile and fecal transplantation presented with two days of abdominal pain and diarrhea. 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
[2017-04-07 22:22] VITALS: BP 138/58
[2017-04-08 06:57] VITALS: BP 158/88
[2017-04-08 08:01] LABS: ABSOLUTE BASOPHIL COUNT 0 /CUMM (0.0-0.2); ABSOLUTE EOSINOPHIL COUNT 0.2 /CUMM (0.0-0.7); ABSOLUTE GRANULOCYTE CT 3.4 /CUMM (1.4-6.5); ABSOLUTE LYMPH COUNT 1.7 /CUMM (1.2-3.4); ABSOLUTE MONOCYTE COUNT 0.7 /CUMM (0.10-0.60); BASOPHIL % 0.4 % (0.0-2.0); EOSINOPHIL % 3.7 % (0-5); GRANULOCYTE % 56.1 % (42.2-75.2); HEMATOCRIT 34.7 % (37-47); MEAN CORPUSCULAR HGB 26.8 PG (27.0-31.0); MEAN CORPUSCULAR HGB CONC 32.7 G/DL (33.0-37.0); PLATELET COUNT 325 /CUMM (130-400); RBC DISTRIBUTION WIDTH 16.1 % (11.5-14.5); RED BLOOD CELL CT 4.24 /CUMM (4.20-5.40)
--- NOTE | 2017-04-08 08:13 | PN- Housestaff ---
Subjective Follow-up For: diverticulitis Subjective: complaining of RLQ pain today, LLQ pain is improved, patient states she is not hungry but is trying to eat, eating a muffin this morning. continuing to have diarrhea with every bowel movement Review of Systems Constitutional: Reports: see HPI. Objective Last 24 Hrs of Vital Signs/I&O Vital Signs Date Time Temp Pulse Resp B/P B/P Pulse O2 O2 Flow FiO2 Mean Ox Delivery Rate 04/08 0942 78 144/74 04/08 0657 98.8 76 20 158/88 97 04/07 2222 98.4 68 20 138/58 99 BIPAP 04/07 1508 97.9 87 20 120/70 95 Room Air Intake & Output 04/08 1600 04/08 0800 04/08 0000 Intake Total 240 650 Output Total 350 1051 Balance -110 -401 Intake, Oral 240 650 Number 1 Bowel Movements Output, Stool 1 Output, Urine 350 1050 Physical Exam General Appearance: Alert, Oriented X3, Cooperative, No Acute Distress Cardiovascular: Regular Rate, Normal S1, Normal S2, No Murmurs Lungs: Clear to Auscultation, Normal Air Movement Abdomen: Normal Bowel Sounds, Soft, No Tenderness, No Masses, patient states RLQ tenderness but no significant grimacing or guarding on deep palpation, no rebound tenderness Extremities: No Clubbing, No Cyanosis, No Edema, Normal Pulses Current Medications: Current Medications Sig/Gricelda Start time Last Medication Dose Route Stop Time Status Admin Acetaminophen 500 MG Q6P PRN 04/07 0945 AC 04/08 PO 0826 Alprazolam 0.25 MG BID PRN 03/31 2199 DC 04/07 PO 04/07 2159 2108 Ciprofloxacin 500 MG BID 04/05 1000 DC 04/08 PO 04/09 0959 0942 Diclofenac Sodium 1 ROBERTO 4 TIMES/DAY 03/31 220 AC 04/08 TOP 0941 Duloxetine HCl 60 MG DAILY 04/01 1000 AC 04/08 PO 0942 Famotidine 20 MG DAILY 04/01 1000 AC 04/08 PO 0941 Furosemide 20 MG DAILY 04/04 1117 AC 04/08 PO 0942 Gabapentin 300 MG BID 03/31 2200 AC 04/08 PO 0942 Guaifenesin 600 MG BID PRN 03/31 1815 AC PO Hydrocortisone 10 MG 1600 04/03 1600 AC 04/07 PO 1600 Hydrocortisone 20 MG 0800 04/03 0800 AC 04/08 PO 0826 Lactobacillus 1 CAP DAILY 04/01 1000 AC 04/08 Acidophilus PO 0941 Losartan Potassium 50 MG DAILY 03/31 1807 AC 04/08 PO 0942 Metronidazole 500 MG Q8 04/05 1400 AC 04/08 PO 0548 Potassium Chloride 20 MEQ DAILY 04/05 1000 AC 04/08 PO 0942 Thiamine HCl 100 MG DAILY 04/01 1000 AC 04/08 PO 0941 Vancomycin HCl 125 MG Q6 03/31 2359 AC 04/08 PO 0548 Warfarin Sodium 2.5 MG COUMADIN 1700 ONE 04/07 1700 DC 04/07 PO 04/07 1701 1750 Last 24 Hrs of Lab/Javier Results Last 24 Hrs of Labs/Mics: Laboratory Tests 04/08/17 0608: Anion Gap 9, Estimated GFR > 60, BUN/Creatinine Ratio 21.4, PT 25.7 H, INR 2.47 H, CBC w Diff NO MAN DIFF REQ, RBC 4.24, MCV 82.0, MCH 26.8 L, MCHC 32.7 L, RDW 16.1 H, MPV 8.0, Gran % 56.1, Lymphocytes % 28.6, Monocytes % 11.2 H, Eosinophils % 3.7, Basophils % 0.4, Absolute Granulocytes 3.4, Absolute Lymphocytes 1.7, Absolute Monocytes 0.7 H, Absolute Eosinophils 0.2, Absolute Basophils 0 Assessment/Plan Assessment: 85 year old female from assisted living with [facility] significant for non-oxygen dependent COPD, hypertension, congestive heart failure, chronic back pain, history of PE in the past on anticoagulation, history of C. difficile and fecal transplantation presented with two days of abdominal pain and diarrhea. Acute Diverticulitis: Regular diet low fiber poor appetite Complaining of some mild LLQ abdominal pain today Discussed with tile designer-plan to continue PO Vancomycin 125mg Q6H for duration of antibiotic treatment for diverticulitis then resume suppressive therapy Discontinue ciprofloxacin, continue flagyl for ten day course Repeat C. difficile negative Continue probiotic h/o of pulmonary embolism: INR 2.47, Coumadin 2mg today Check daily PT/INR CHF: HFpEF LVEF wnl, abnormal ventricular relaxation and mild diastolic dysfunction on previous echo Resume lasix 20mg daily, continue ACEi [place]'s disease: Follow up endocrinology recommendations in regard of management of [place] disease 20mg hydrocortisone in AM and 10mg in PM Regular diet low fiber DVT ppx-on coumadin, INR therapeutic Full code PT evaluation-home PT Problem List: 1. [place]'s disease 2. Recurrent Clostridium difficile diarrhea 3. Acute diverticulitis 4. H/O DVT/PE Pain Ratin Pain Location: RLQ Pain Goal: Pain 4 or less Pain Plan: prn Tomorrow's Labs & Rationales: pt/inr
[2017-04-08 08:21] LABS: PT 25.7 SEC (9.4-12.5)
--- NOTE | 2017-04-08 11:05 | PN- Pulmonary ---
Subjective HPI/Critical Care Issues: Doing ok Still has diarrhea Objective Current Medications: Current Medications Sig/Gricelda Start time Last Medication Dose Route Stop Time Status Admin Acetaminophen 500 MG Q6P PRN 04/07 0945 AC 04/08 PO 0826 Alprazolam 0.25 MG BID PRN 03/31 2200 DC 04/07 PO 04/07 2159 2108 Ciprofloxacin 500 MG BID 04/05 1000 DC 04/08 PO 04/09 0959 0942 Diclofenac Sodium 1 ROBERTO 4 TIMES/DAY 03/31 2200 AC 04/08 TOP 0941 Duloxetine HCl 60 MG DAILY 04/01 1000 AC 04/08 PO 0942 Famotidine 20 MG DAILY 04/01 1000 AC 04/08 PO 0941 Furosemide 20 MG DAILY 04/04 1117 AC 04/08 PO 0942 Gabapentin 300 MG BID 03/31 2200 AC 04/08 PO 0942 Guaifenesin 600 MG BID PRN 03/31 1815 AC PO Hydrocortisone 10 MG 1600 04/03 1600 AC 04/07 PO 1600 Hydrocortisone 20 MG 0800 04/03 0800 AC 04/08 PO 0826 Lactobacillus 1 CAP DAILY 04/01 1000 AC 04/08 Acidophilus PO 0941 Losartan Potassium 50 MG DAILY 03/31 1807 AC 04/08 PO 0942 Metronidazole 500 MG Q8 04/05 1400 AC 04/08 PO 0548 Potassium Chloride 20 MEQ DAILY 04/05 1000 AC 04/08 PO 0942 Thiamine HCl 100 MG DAILY 04/01 1000 AC 04/08 PO 0941 Vancomycin HCl 125 MG Q6 03/31 2359 AC 04/08 PO 0548 Warfarin Sodium 2 MG COUMADIN 1700 ONE 04/08 1700 UNVr PO 04/08 1701 Warfarin Sodium 2.5 MG COUMADIN 1700 ONE 04/07 1700 DC 04/07 PO 04/07 1701 1750 Vital Signs & I&O Last 24 Hrs of Vitals and I&O: Vital Signs Date Time Temp Pulse Resp B/P B/P Pulse O2 O2 Flow FiO2 Mean Ox Delivery Rate 04/08 0942 78 144/74 04/08 0657 98.8 76 20 158/88 97 04/07 2222 98.4 68 20 138/58 99 BIPAP 04/07 1508 97.9 87 20 120/70 95 Room Air Intake & Output 04/08 1600 04/08 0800 04/08 0000 Intake Total 240 650 Output Total 350 1051 Balance -110 -401 Intake, Oral 240 650 Number 1 Bowel Movements Output, Stool 1 Output, Urine 350 1050 Impression/Plan Impression/Plan Impression/Plan: General Appearance: Alert, Oriented X3, Cooperative Other Physical Findings: Cardiovascular: Regular Rate, Normal S1, Normal S2, No Murmurs Lungs: Clear to Auscultation, Normal Air Movement Abdomen: Normal Bowel Sounds, Soft, No Masses, tender to palpation LLQ, no guarding or rebound tenderness Extremities: No Clubbing, No Cyanosis, No Edema, Normal Pulses IMPRESSION 85 year old female from assisted living with [facility] significant for non-oxygen dependent COPD, hypertension, congestive heart failure, chronic back pain, history of PE in the past on anticoagulation, history of C. difficile and fecal transplantation presented with two days of abdominal pain and diarrhea. Acute Diverticulitis: continue low fiber diet, still poor appetite Complaining of diarrhea (chronic) continue PO Vancomycin 125mg for one week and taper slowly down to home dose Continue PO antibiotics ciprofloxacin for seven days h/o of pulmonary embolism: INR 2.52, dose Coumadin 2.5 mg today Check daily PT/INR CHF: HFpEF LVEF wnl, abnormal ventricular relaxation and mild diastolic dysfunction on previous echo Resumed lasix 20mg daily, continue ACEi [place]'s disease: 20mg hydrocortisone in AM and 10mg OK to dc when diarrhea is better
[2017-04-08 14:16] VITALS: BP 130/71
[2017-04-08 21:46] VITALS: BP 124/66
[2017-04-09 06:49] VITALS: BP 118/62
--- NOTE | 2017-04-09 08:15 | PN- Housestaff ---
Subjective Follow-up For: acute diverticulitis Subjective: patient states she had one episode of diarrhea this morning but she thinks she is improved slightly no complaints of abdominal pain currently afebrile, cipro discontinued yesterday cdiff pcr pending Review of Systems Constitutional: Reports: see HPI. Objective Last 24 Hrs of Vital Signs/I&O Vital Signs Date Time Temp Pulse Resp B/P B/P Pulse O2 O2 Flow FiO2 Mean Ox Delivery Rate 04/09 0649 97.8 81 20 118/62 97 04/08 2146 98.5 75 20 124/66 96 Room Air 04/08 1600 93 Room Air 04/08 1416 98.1 79 20 130/71 93 Room Air 04/08 0942 78 144/74 Intake & Output 04/09 1600 04/09 0800 04/09 0000 Intake Total 240 600 Output Total Balance 240 600 Intake, IV Intake, Oral 240 600 Physical Exam General Appearance: Alert, Oriented X3, Cooperative, No Acute Distress Cardiovascular: Regular Rate, Normal S1, Normal S2, No Murmurs Lungs: Clear to Auscultation, Normal Air Movement Abdomen: Normal Bowel Sounds, Soft, No Tenderness, No Masses Extremities: No Clubbing, No Cyanosis, No Edema, Normal Pulses Current Medications: Current Medications Sig/Gricelda Start time Last Medication Dose Route Stop Time Status Admin Acetaminophen 500 MG Q6P PRN 04/07 0945 AC 04/08 PO 1736 Alprazolam 0.25 MG BID PRN 04/08 1600 AC 04/09 PO 04/15 1559 0548 Ciprofloxacin 500 MG BID 04/05 1000 DC 04/08 PO 04/09 0959 0942 Diclofenac Sodium 1 ROBERTO 4 TIMES/DAY 03/31 2199 AC 04/08 TOP 0941 Duloxetine HCl 60 MG DAILY 04/01 1000 AC 04/08 PO 0942 Famotidine 20 MG DAILY 04/01 1000 AC 04/08 PO 0941 Furosemide 20 MG DAILY 04/04 1117 AC 04/08 PO 0942 Gabapentin 300 MG BID 03/31 2199 AC 04/08 PO 2048 Guaifenesin 600 MG BID PRN 03/31 1815 AC PO Hydrocortisone 10 MG 1600 04/03 1600 AC 04/08 PO 1633 Hydrocortisone 20 MG 0800 04/03 0800 AC 04/08 PO 0826 Lactobacillus 1 CAP DAILY 04/01 1000 AC 04/08 Acidophilus PO 0941 Losartan Potassium 50 MG DAILY 03/31 1807 AC 04/08 PO 0942 Metronidazole 500 MG Q8 04/05 1400 AC 04/09 PO 0547 Potassium Chloride 20 MEQ DAILY 04/05 1000 AC 04/08 PO 0942 Thiamine HCl 100 MG DAILY 04/01 1000 AC 04/08 PO 0941 Vancomycin HCl 125 MG Q6 03/31 2359 AC 04/09 PO 0547 Warfarin Sodium 2 MG COUMADIN 1700 ONE 04/08 1700 DC 04/08 PO 04/08 1701 1633 Last 24 Hrs of Lab/Javier Results Last 24 Hrs of Labs/Mics: Laboratory Tests 04/09/17 0654: PT Pending, INR Pending Assessment/Plan Assessment: 85 year old female from assisted living with [facility] significant for non-oxygen dependent COPD, hypertension, congestive heart failure, chronic back pain, history of PE in the past on anticoagulation, history of C. difficile and fecal transplantation presented with two days of abdominal pain and diarrhea. Acute Diverticulitis: Regular diet low fiber poor appetite No complaints of abdominal pain, 1 episode of diarrhea improved Discussed with photograph printer-plan to continue PO Vancomycin 125mg Q6H for duration of antibiotic treatment for diverticulitis then resume suppressive therapy Discontinued ciprofloxacin Continue flagyl last day, ten day total course then stop Repeat C. difficile negative, PCR pending Continue probiotic h/o of pulmonary embolism: INR pending, Coumadin 2mg today Check daily PT/INR CHF: HFpEF LVEF wnl, abnormal ventricular relaxation and mild diastolic dysfunction on previous echo Resume lasix 20mg daily, continue ACEi [place]'s disease: Continue 20mg hydrocortisone in AM and 10mg in PM Regular diet low fiber DVT ppx-on coumadin, INR therapeutic Full code Dispo: Home PT Problem List: 1. [place]'s disease 2. BILATERAL PULMONARY EMBOLI 3. Diarrhea 4. Recurrent Clostridium difficile diarrhea 5. Acute diverticulitis Pain Ratin Pain Location: n/a Pain Goal: Pain 4 or less Pain Plan: prn Tomorrow's Labs & Rationales: pt/inr
--- NOTE | 2017-04-09 11:02 | PN- Att Addend ---
Attending Addendum Attending Brief Note Patient still weak in bed still having loose bowel movements, the bowel movements are "not smelly" her vital signs are stable no fever no new changes on physical stools were collected again today. Will check with GI probably discontinue the Cipro maybe a reason for her loose bowel movements. And hopefully will be able to start disposition plans soon. Intake & Output 04/09 1600 04/09 0400 04/08 1600 04/08 0400 04/07 1600 04/07 0400 Intake Total 240 600 960 650 850 450 Output Total 850 1051 650 300 Balance 240 600 110 -401 200 150 Intake, IV Intake, Oral 240 600 960 650 850 450 Number 1 2 2 1 Bowel Movements Output, Stool 1 Output, Urine 850 1050 650 300 Current Medications Sig/Gricelda Start time Last Medication Dose Route Stop Time Status Admin Acetaminophen 500 MG Q6P PRN 04/07 0945 AC 04/09 PO 0943 Alprazolam 0.25 MG BID PRN 04/08 1600 AC 04/09 PO 04/15 1559 0548 Diclofenac Sodium 1 ROBERTO 4 TIMES/DAY 03/31 2200 AC 04/08 TOP 0941 Duloxetine HCl 60 MG DAILY 04/01 1000 AC 04/09 PO 0907 Famotidine 20 MG DAILY 04/01 1000 AC 04/09 PO 0907 Furosemide 20 MG DAILY 04/04 1117 AC 04/09 PO 0907 Gabapentin 300 MG BID 03/31 2200 AC 04/09 PO 0907 Guaifenesin 600 MG BID PRN 03/31 1815 AC PO Hydrocortisone 10 MG 1600 04/03 1600 AC 04/08 PO 1633 Hydrocortisone 20 MG 0800 04/03 0800 AC 04/09 PO 0907 Lactobacillus 1 CAP DAILY 04/01 1000 AC 04/09 Acidophilus PO 0907 Losartan Potassium 50 MG DAILY 03/31 1807 AC 04/09 PO 0907 Metronidazole 500 MG Q8 04/05 1400 AC 04/09 PO 0547 Potassium Chloride 20 MEQ DAILY 04/05 1000 AC 04/09 PO 0907 Thiamine HCl 100 MG DAILY 04/01 1000 AC 04/09 PO 0907 Vancomycin HCl 125 MG Q6 03/31 2359 AC 04/09 PO 0547 Warfarin Sodium 2 MG COUMADIN 1700 ONE 04/08 1700 DC 04/08 PO 04/08 1701 1633 Laboratory Tests 04/09/17 0654: PT 27.0 H, INR 2.60 H 04/08/17 0900: C. difficile Tox B Gene Pending 04/08/17 0608: Anion Gap 9, Estimated GFR > 60, BUN/Creatinine Ratio 21.4, PT 25.7 H, INR 2.47 H, CBC w Diff NO MAN DIFF REQ, RBC 4.24, MCV 82.0, MCH 26.8 L, MCHC 32.7 L, RDW 16.1 H, MPV 8.0, Gran % 56.1, Lymphocytes % 28.6, Monocytes % 11.2 H, Eosinophils % 3.7, Basophils % 0.4, Absolute Granulocytes 3.4, Absolute Lymphocytes 1.7, Absolute Monocytes 0.7 H, Absolute Eosinophils 0.2, Absolute Basophils 0 04/07/17 0710: Anion Gap 8, Estimated GFR > 60, BUN/Creatinine Ratio 15.7, PT 27.2 H, INR 2.62 H Vital Signs Date Time Temp Pulse Resp B/P B/P Pulse O2 O2 Flow FiO2 Mean Ox Delivery Rate 04/09 0649 97.8 81 20 118/62 97 04/08 2146 98.5 75 20 124/66 96 Room Air 04/08 1600 93 Room Air 04/08 1416 98.1 79 20 130/71 93 Room Air
[2017-04-09 13:30] VITALS: BP 128/78
[2017-04-09 16:39] VITALS: BP 116/70
[2017-04-09 20:46] VITALS: BP 144/86
[2017-04-10 00:31] LABS: C.DIFFICILE TOXIN B QL PCR NOT DETECTED (NOT DETECTED)
[2017-04-10 06:43] VITALS: BP 136/80
--- NOTE | 2017-04-10 07:01 | PN- Housestaff ---
Subjective Follow-up For: acute diverticulitis Subjective: patients abdominal pain is improved today off antibiotics afebrile one episode of diarrhea this morning but patient thinks its getting better Review of Systems Constitutional: Reports: see HPI. Objective Last 24 Hrs of Vital Signs/I&O Vital Signs Date Time Temp Pulse Resp B/P B/P Pulse O2 O2 Flow FiO2 Mean Ox Delivery Rate 04/10 0643 98.4 81 20 136/80 97 04/09 2046 98.5 83 20 144/86 96 Room Air 04/09 1639 98.7 82 16 116/70 91 Nasal 2.0L Cannula 04/09 1330 97.9 80 20 128/78 96 Room Air Intake & Output 04/10 1600 04/10 0800 04/10 0000 Intake Total Output Total 350 Balance -350 Number 1 1 Bowel Movements Output, Urine 350 Physical Exam General Appearance: Alert, Oriented X3, Cooperative, No Acute Distress Cardiovascular: Regular Rate, Normal S1, Normal S2, No Murmurs Lungs: Clear to Auscultation, Normal Air Movement Abdomen: Normal Bowel Sounds, Soft, No Tenderness, No Masses Extremities: No Clubbing, No Cyanosis, No Edema, Normal Pulses Current Medications: Current Medications Sig/Gricelda Start time Last Medication Dose Route Stop Time Status Admin Acetaminophen 325 MG ONCE ONE 04/10 0645 DC 04/10 PO 04/10 0646 0638 Acetaminophen 500 MG Q6P PRN 04/07 0945 AC 04/09 PO 0943 Alprazolam 0.25 MG BID PRN 04/08 1600 AC 04/10 PO 04/15 1559 0950 Diclofenac Sodium 1 ROBERTO 4 TIMES/DAY 03/31 2199 AC 04/08 TOP 0941 Duloxetine HCl 60 MG DAILY 04/01 1000 AC 04/10 PO 0938 Famotidine 20 MG DAILY 04/01 1000 AC 04/10 PO 0939 Furosemide 20 MG DAILY 04/04 1117 AC 04/10 PO 0939 Gabapentin 300 MG BID 03/31 2200 AC 04/10 PO 0938 Guaifenesin 600 MG BID PRN 03/31 1815 AC PO Hydrocortisone 10 MG 1600 04/03 1600 AC 04/09 PO 1640 Hydrocortisone 20 MG 0800 04/03 0800 AC 04/10 PO 0938 Lactobacillus 1 CAP DAILY 04/01 1000 AC 04/10 Acidophilus PO 0939 Losartan Potassium 50 MG DAILY 03/31 1807 AC 04/10 PO 0938 Metronidazole 500 MG Q8 04/05 1400 DC 04/09 PO 1319 Potassium Chloride 20 MEQ DAILY 04/05 1000 AC 04/09 PO 0907 Thiamine HCl 100 MG DAILY 04/01 1000 AC 04/10 PO 0938 Vancomycin HCl 125 MG BID 04/09 2200 AC 04/10 PO 0939 Vancomycin HCl 125 MG Q6 03/31 2359 DC 04/09 PO 1110 Warfarin Sodium 2 MG COUMADIN 1700 ONE 04/09 1700 DC 04/09 PO 04/09 1701 1746 Assessment/Plan Assessment: 85 year old female from assisted living with H significant for non-oxygen dependent COPD, hypertension, congestive heart failure, chronic back pain, history of PE in the past on anticoagulation, history of C. difficile and fecal transplantation presented with two days of abdominal pain and diarrhea. Acute Diverticulitis: Regular diet low fiber poor appetite No complaints of abdominal pain, 1 episode of diarrhea this morning Resume suppressive therapy with PO Vancomycin 125mg daily on discharge Discontinued ciprofloxacin and flagyl Repeat C. difficile negative, PCR negative Continue probiotic h/o of pulmonary embolism: Continue coumadin 2mg daily, INR therapeutic CHF: HFpEF LVEF wnl, abnormal ventricular relaxation and mild diastolic dysfunction on previous echo Resume lasix 20mg daily, continue ACEi Keller's disease: Continue 20mg hydrocortisone in AM and 10mg in PM Regular diet low fiber DVT ppx-on coumadin, INR therapeutic Full code Dispo: Home PT Problem List: 1. Acute diverticulitis 2. Recurrent Clostridium difficile diarrhea 3. Abdominal pain 4. Diarrhea Pain Ratin Pain Location: n/a Pain Goal: Pain 4 or less Pain Plan: prn Tomorrow's Labs & Rationales: none
--- NOTE | 2017-04-10 10:17 | PN- Att Addend ---
Attending Addendum Attending Brief Note 1 loose bowel movement. No other different complaints or changes. No signs are stable patient has no fever. No changes on physical. Will start arrangements patient to return to assisted living with PT, monitoring her labs in bowels at home see the CMR the patient to see me in the next 2 weeks the office. Intake & Output 04/10 1600 04/10 0400 04/09 1600 04/09 0400 04/08 1600 04/08 0400 Intake Total 1150 600 960 650 Output Total [phone] Balance -350 500 600 110 -401 Intake, IV 10 Intake, Oral 1140 600 960 650 Number 1 1 2 2 Bowel Movements Output, Stool 1 Output, Urine 350 910 412 3476 Current Medications Sig/Gricelda Start time Last Medication Dose Route Stop Time Status Admin Acetaminophen 325 MG ONCE ONE 04/10 06 DC 04/10 PO 04/10 0646 0638 Acetaminophen 500 MG Q6P PRN 04/07 0945 AC 04/09 PO 0943 Alprazolam 0.25 MG BID PRN 04/08 1600 AC 04/10 PO 04/15 1559 0950 Diclofenac Sodium 1 ROBERTO 4 TIMES/DAY 03/31 2200 AC 04/08 TOP 0941 Duloxetine HCl 60 MG DAILY 04/01 1000 AC 04/10 PO 0938 Famotidine 20 MG DAILY 04/01 1000 AC 04/10 PO 0939 Furosemide 20 MG DAILY 04/04 1117 AC 04/10 PO 0939 Gabapentin 300 MG BID 03/31 2200 AC 04/10 PO 0938 Guaifenesin 600 MG BID PRN 03/31 1815 AC PO Hydrocortisone 10 MG 1600 04/03 1600 AC 04/09 PO 1640 Hydrocortisone 20 MG 0800 04/03 0800 AC 04/10 PO 0938 Lactobacillus 1 CAP DAILY 04/01 1000 AC 04/10 Acidophilus PO 0939 Losartan Potassium 50 MG DAILY 03/31 1807 AC 04/10 PO 0938 Metronidazole 500 MG Q8 04/05 1400 DC 04/09 PO 1319 Potassium Chloride 20 MEQ DAILY 04/05 1000 AC 04/09 PO 0907 Thiamine HCl 100 MG DAILY 04/01 1000 AC 04/10 PO 0938 Vancomycin HCl 125 MG BID 04/09 2200 AC 04/10 PO 0939 Vancomycin HCl 125 MG Q6 03/31 2359 DC 04/09 PO 1110 Warfarin Sodium 2 MG COUMADIN 1700 ONE 04/09 1700 DC 04/09 PO 04/09 1701 1746 Laboratory Tests 04/09/17 0654: PT 27.0 H, INR 2.60 H 04/08/17 0900: C. difficile Tox B Gene NOT DETECTED 04/08/17 0608: Anion Gap 9, Estimated GFR > 60, BUN/Creatinine Ratio 21.4, PT 25.7 H, INR 2.47 H, CBC w Diff NO MAN DIFF REQ, RBC 4.24, MCV 82.0, MCH 26.8 L, MCHC 32.7 L, RDW 16.1 H, MPV 8.0, Gran % 56.1, Lymphocytes % 28.6, Monocytes % 11.2 H, Eosinophils % 3.7, Basophils % 0.4, Absolute Granulocytes 3.4, Absolute Lymphocytes 1.7, Absolute Monocytes 0.7 H, Absolute Eosinophils 0.2, Absolute Basophils 0 Vital Signs Date Time Temp Pulse Resp B/P B/P Pulse O2 O2 Flow FiO2 Mean Ox Delivery Rate 04/10 0643 98.4 81 20 136/80 97 04/09 2046 98.5 83 20 144/86 96 Room Air 04/09 1639 98.7 82 16 116/70 91 Nasal 2.0L Cannula 04/09 1330 97.9 80 20 128/78 96 Room Air
== END 2017-04-10 13:55 | disposition home health service (06) | DRG 392 ==
LOC: ERH 11:03 → ERHI 16:01 → 2NB 16:01 → ENRESERV 16:48 → ENTRNSPT 17:56 → EDTRNSPTSTS 18:00 → 2NB 18:09 → CMPTRNSPT 19:36 → 2NB 04-06 08:45 → ENPENDDIS 04-10 10:54 → ENTRNSPT 04-10 13:30 → EDTRNSPTSTS 04-10 13:51 → EDTRNSPT 04-10 13:51 → 2NB 04-10 13:55 → CMPTRNSPT 04-10 14:04
PROVIDERS: Internal Medicine; Radiology Vascular & Interventional Radiology; Student in an Organized Health Care Education/Training Program
DX: K57.32 Diverticulitis of large intestine without perforation or abscess without bleeding (principal); E27.1 Primary adrenocortical insufficiency; I38 Endocarditis, valve unspecified; Z94.89 Other transplanted organ and tissue status; I50.30 Unspecified diastolic (congestive) heart failure; I11.0 Hypertensive heart disease with heart failure; E86.0 Dehydration; N39.0 Urinary tract infection, site not specified; Z87.19 Personal history of other diseases of the digestive system; J44.9 Chronic obstructive pulmonary disease, unspecified; M54.9 Dorsalgia, unspecified; Z86.718 Personal history of other venous thrombosis and embolism; Z79.01 Long term (current) use of anticoagulants; Z88.1 Allergy status to other antibiotic agents; Z88.5 Allergy status to narcotic agent; E78.5 Hyperlipidemia, unspecified; M35.3 Polymyalgia rheumatica; F41.9 Anxiety disorder, unspecified; F32.9 Major depressive disorder, single episode, unspecified; K57.30 Diverticulosis of large intestine without perforation or abscess without bleeding; D64.9 Anemia, unspecified; Z96.659 Presence of unspecified artificial knee joint; B96.89 Other specified bacterial agents as the cause of diseases classified elsewhere; R79.1 Abnormal coagulation profile; Z86.711 Personal history of pulmonary embolism
CPT/HCPCS: 87493; 36415; 36592; 71045; 74177; 81001; 82436; 87045; 93005; 93010; 96372; 96374; 97110-GO; 97116-GO; 97161-GP; 97530-GO; J0696; J1720; J1815; J2405; J3250; J3490; J7042